=== PATIENT | male | born 1945 | race Caucasian/White ===

== ENCOUNTER 2017-11-08 21:58 | Inpatient (IN) ==
--- NOTE | 2017-11-08 22:31 | DR.N/VMALE ---
HPI - Time Seen Time seen: 22:27 - Complaints Chief Complaint Doctors Comments: Son states he had not heard from his father in a while and he and his went to check on him and found him on the floor with yellow bile vomitus that he had thrown up. States the patient stays with his grand daughter and her and she said he fell yesterday and he told her to brink him to the emergency room if he did not get any better. Patient states he fell at home when his feet got tingled up and he fell. He denies chest pain or SOB. States he is unsure of the name of his doctor. Son state he is a diabetic and has heart problems. He denies tobacco or alcohol usage. Chief Complaint:: nausea/vomiting, decreased responsiveness - Reviewed Nurses Notes Reviewed: Yes - Source History Provided: Patient - Mode of Arrival Mode of Arrival: EMS - Timing Onset of Chief Complaint: 11/08/17 - Context Onset: Spontaneous Recent: None Possible Ingestion: Unknown History of: None - Quality Quality: Bilious - Associated Signs and Symptoms Abdominal Pain Location: denies: Diffuse, Epigastric, RUQ, LUQ, RLQ, LLQ, Suprapubic Symptoms: denies: Abdominal Pain, Diarrhea, Anorexia, Hematemesis, Melena, Hematochezia, Fever PMH - PMH Past Medical History: Yes Past Medical History: Arthritis, Diabetes, Dyslipidemia, Hypertension Past Surgical History: Yes Surgical History: Angioplasty/Stents - Family History History of Family Medical Conditions: Yes Family Medical History: Diabetes Mellitus, Cancer, Coronary Artery Disease - Social History Do you use any recreational Drugs:: No - infectious screening In the last 2 months have you had wt loss of >10#?: NO Have you had fever, night sweats or hemotysis?: No Have you traveled outside the country in the last 6 months?: No Isolation: Standard ROS - Review of Systems Constitutional: No Symptoms Reported, Weakness Eyes: No Symptoms Reported ENTM: No Symptoms Reported Respiratoy: No Symptoms Reported. negative: See HPI, Productive Cough, Non- Productive Cough, Moist Cough, Dry Cough, Hacking Cough, Barking Cough, Brassy Cough, Orthopnea, Short of Breath, Stridor, Wheezing, Hemoptysis, Other Cardiovascular: No Symptoms Reported Gastrointestinal/Abdominal: No Symptoms Reported, Nausea, Vomiting Genitourinary: No Symptoms Reported Neurological: No Symptoms Reported, Weakness, Problems Walking Musculoskeletal: No Symptoms Reported Integumentary: No Symptoms Reported. negative: See HPI, Change in Color, Change in Hair/Nails, Dryness, Lesions, Lumps, Rash, Itching, Wound, Bruises, Juandice, Other Hematologic/Lymphatic: No Symptoms Reported. negative: See HPI, Anemia, Blood Clots, Easy Bleeding, Easy Bruising, Swollen Glands, Lymphadenopathy, Other Endocrine: No Symptoms Reported, Decreased Appetite Psychiatric: No Symptoms Reported PE - General Limitations: Altered Mental Status General Appearance: Alert, In Distress (moderate), Obese - Head Head Exam: Normal Inspection, Atraumatic, Normocephalic - Eyes Eye exam: Normal Appearance, PERRL, EOMI. negative: Scleral Icterus, Conjunctival Injection, Nystagmus, Miosis, Mydrasis, Periorbital Swelling, Periorbital Tenderness, Other - ENT ENT Exam: Normal Exam, Normal Oropharynx, Normal External Ear Exam, Mucous Membranes Moist, TM's Normal Bilaterally - Neck Neck Exam: Normal Inspection, Full ROM, Trachea Midline - Chest Chest Inspection: Normal Inspection, Symmetric Chest Wall Rise - Respiratory Respiratory Exam: Normal Lung Sounds Bilat Respiratory Exam: Bilateral Clear to Auscultation - Cardiovascular Cardiovascular Exam: Regular Rate, Normal Rhythm, Normal Heart Sounds - Abdominal Exam Abdominal Exam: Normal Inspection, Normal Bowel Sounds, Soft Abdominal Tenderness: negative: RUQ, RLQ, LUQ, LLQ, Epigastrium, Suprapubic, Diffuse, Mild, Moderate, Severe, Other - Rectal Rectal Exam: Deferred - Exam: Male: Normal Inspection, Phimosis. negative: Testicular Tenderness, Urethral Discharge, Scrotal Swelling, Penile Swelling - Extremities Extremities Exam: Normal Inspection, Full ROM, Normal Capillary Refill. negative: Tenderness, Edema, Joint Swelling, Calf Tenderness, Other - Back Back Exam: Normal Inspection, Full ROM - Neurologic Neurological Exam: Alert, Oriented X3, CN II-XII Intact (decreased hearing; repeats every question before answering it.), Reflexes Normal. negative: Normal Gait (gait not tested) - Psychiatric Psychiatric Exam: Normal Affect, Normal Mood - Skin Skin Exam: Warm, Dry, Intact, Rash (arms with hyperpigmented rash) - Vital Signs Vitals: Temperature 100.5 F Pulse Rate [Right] 110 Respiratory Rate 32 Blood Pressure [Left Arm] 118/64 Blood Pressure [Right Arm] 150/72 Blood Pressure 128/84 O2 Sat by Pulse Oximetry 95 Course - Consultation Called: :33 Call Returned: 01:33 (Dr. Mack to admit) - Education/Counseling Education/Counseling: Patient, Family Educated On: Treatment, Diagnosis, Needs for Follow Up ROR - Labs Reviewed Laboratory Results Reviewed?: Yes (All labs and x-ray results reviewed and discussed with patient) Result Diagrams: 11/08/17 23:00 11/08/17 23:00 - XRAY XRAY Interpreted by: Radiologist (CT head: No acute intracranial abnormality.) XRAY Findings: CXR: Cardiomegaly without overt edema. - EKG Rate: 109 [place]: Normal Rhythm: NSR, ST Block: None, RBBB Hypertrophy: None ST: Old, Inf, Infarct - Labs Reviewed Laboratory: WBC 14.8 X10^3/uL (3.6-10.0) H 11/08/17 23:00 RBC 4.90 X10^6/uL (4.7-6.0) 11/08/17 23:00 Hgb 14.5 g/dL (13.5-18.0) 11/08/17 23:00 Hct 41.7 % (42.0-54.0) L 11/08/17 23:00 MCV 85.0 fL (80.0-100.0) 11/08/17 23:00 MCH 29.6 pg (27.0-34.0) 11/08/17 23:00 MCHC 34.9 g/dL (33.0-35.0) 11/08/17 23:00 RDW 15.1 % (11.6-16.5) 11/08/17 23:00 Plt Count 160 X10^3/uL (150.0-450.0) 11/08/17 23:00 MPV 7.0 fL (7.4-11.0) L 11/08/17 23:00 Neut % (Auto) 82.6 % (42.0-75.0) H 11/08/17 23:00 Lymph % (Auto) 8.0 % (21.0-51.0) L 11/08/17 23:00 [place] % (Auto) 8.9 % (0.0-13.0) 11/08/17 23:00 Eos % (Auto) 0.1 % (0.9-2.9) L 11/08/17 23:00 Baso % (Auto) 0.4 % (0.2-1.0) 11/08/17 23:00 Neut # (Auto) 12.2 x10^3/uL (2.2-4.8) H 11/08/17 23:00 Lymph # (Auto) 1.2 X10^3/uL (1.3-2.9) L 11/08/17 23:00 [place] # (Auto) 1.3 x10^3/uL (0.3-0.8) H 11/08/17 23:00 Eos # (Auto) 0.0 x10^3/uL (0.0-0.2) 11/08/17 23:00 Baso # (Auto) 0.1 X10^3/uL (0.0-0.1) 11/08/17 23:00 Absolute Nucleated RBC 0.1 /100WBC 11/08/17 23:00 INR Target Range - 11/08/17 23:00 INR 1.11 (0.8-1.3) 11/08/17 23:00 APTT 34.1 SECONDS (22.9-36.5) 11/08/17 23:00 PTT Comment - 11/08/17 23:00 Sodium 136 mmol/L (136-145) 11/08/17 23:00 Corrected Sodium 139 mmol/L (136-145) 11/08/17 23:00 Potassium 3.2 mmol/L (3.5-5.1) L 11/08/17 23:00 Chloride 98 mmol/L (98-107) 11/08/17 23:00 Carbon Dioxide 29.7 mmol/L (21-32) 11/08/17 23:00 BUN 14 mg/dL (7-18) 11/08/17 23:00 Creatinine 1.18 mg/dL (0.70-1.30) 11/08/17 23:00 Est GFR (MDRD) Af Amer > 60 (>60) 11/08/17 23:00 Est GFR (MDRD) Non-Af > 60 (>60) 11/08/17 23:00 Glucose 213 mg/dL (65-99) H 11/08/17 23:00 Calcium 9.1 mg/dL (8.5-10.1) 11/08/17 23:00 Corrected Calcium 9.7 mg/dL (8.5-10.1) 11/08/17 23:00 Magnesium 1.4 mg/dL (1.7-2.9) L 11/08/17 23:00 Total Bilirubin 1.30 mg/dL (0.2-1.0) H 11/08/17 23:00 AST 33 Units/L (15-37) 11/08/17 23:00 ALT 32 Units/L (12-78) 11/08/17 23:00 Alkaline Phosphatase 57 Units/L (46-116) 11/08/17 23:00 Creatine Kinase 1228 Units/L (39-308) H 11/08/17 23:00 CK-MB (CK-2) 2.0 ng/mL (0-4.0) 11/08/17 23:00 CK/CKMB % Calc 0.2 % (<4) 11/08/17 23: Troponin I < 0.02 ng/mL (0-1.5) 11/08/17 23:00 Total Protein 7.3 g/dL (6.4-8.2) 11/08/17 23:00 Albumin 3.3 g/dL (3.4-5.0) L 11/08/17 23:00 Globulin 4.0 g/dL (2.5-4.5) 11/08/17 23:00 Albumin/Globulin Ratio 0.8 Ratio (1.1-2.1) L 11/08/17 23:00 Amylase 37 Units/L (25-115) 11/08/17 23:00 Lipase 70 Units/L (73-393) L 11/08/17 23:00 Specimen Type Random urine 11/08/17 23:23 Urine Color Bloody (YELLOW) 11/08/17 23: Urine Appearance Cloudy (CLEAR) 11/08/17 23:23 Urine pH 6.5 (5.0 - 8.0) 11/08/17 23:23 Ur Specific [place] 1.015 (1.000-1.030) 11/08/17 23:23 Urine Protein 4+ (NEGATIVE) 11/08/17 23:23 Urine Glucose (UA) 3+ (NEGATIVE) 11/08/17 23:23 Urine Ketones 4+ (NEGATIVE) 11/08/17 23:23 Urine Occult Blood 5+ (NEGATIVE) 11/08/17 23:23 Urine Nitrite Positive (NEGATIVE) 11/08/17 23:23 Urine Bilirubin 1+ (NEGATIVE) 11/08/17 23:23 Urine Urobilinogen 1+ (NORMAL) 11/08/17 23:23 Ur Leukocyte Esterase 2+ (NEGATIVE) 11/08/17 23:23 Urine RBC Tntc /HPF (NONE SEEN) 11/08/17 23:23 Urine WBC 3-5 /HPF (NONE SEEN) 11/08/17 23:23 Ur Squamous Epith Cells Few /HPF (NEGATIVE) 11/08/17 23:23 Urine Bacteria Trace /HPF (NEGATIVE) 11/08/17 23:23 Ur Culture Indicated? No/not indicated 11/08/17 23:23 Urine Opiates Screen Negative (NEG=<300) 11/08/17 23:25 Urine Methadone Screen Negative (NEG=<300) 11/08/17 23:25 Ur Barbiturates Screen Negative (NEG=<200) 11/08/17 23:25 Ur Phencyclidine Scrn Negative (NEG=<25) 11/08/17 23:25 Ur Amphetamines Screen Negative (NEG=<1000) 11/08/17 23:25 U Benzodiazepines Scrn Negative (NEG=<200) 11/08/17 23:25 Urine Cocaine Screen Negative (NEG=<300) 11/08/17 23:25 U Marijuana (THC) Screen Negative (NEG=<50) 11/08/17 23:25 - Diagnosis Discharge Problem: SIRS (systemic inflammatory response syndrome), Fall Urinary tract infection Qualifiers: Hematuria presence: without hematuria Rhabdomyolysis Qualifiers: Encounter type: initial encounter Diabetes mellitus Qualifiers: Diabetes mellitus type: type 2 - Discharge Plan Disposition: 01 HOME, SELF-CARE Condition: Stable - Follow ups/Referrals Follow ups/Referrals: DORITA ANDUJAR [Primary Care Provider] - 3 days - Instructions
[2017-11-08 23:15] LABS: BASOPHILS # (AUTO) 0.1 X10^3/uL (0.0-0.1); BASOPHILS % (AUTO) 0.4 % (0.2-1.0); EOSINOPHILS % (AUTO) 0.1 % (0.9-2.9); HEMATOCRIT 41.7 % (42.0-54.0); HEMOGLOBIN 14.5 g/dL (13.5-18.0); LYMPHOCYTES # (AUTO) 1.2 X10^3/uL (1.3-2.9); MEAN CORPUSCULAR HEMOGLOBIN 29.6 pg (27.0-34.0); MEAN CORPUSCULAR HGB CONC 34.9 g/dL (33.0-35.0); MONOCYTES # (AUTO) 1.3 x10^3/uL (0.3-0.8); MONOCYTES % (AUTO) 8.9 % (0.0-13.0); NEUTROPHILS # (AUTO) 12.2 x10^3/uL (2.2-4.8); NEUTROPHILS % (AUTO) 82.6 % (42.0-75.0); PLATELET COUNT 160 X10^3/uL (150.0-450.0); RED CELL DISTRIBUTION WIDTH 15.1 % (11.6-16.5); WHITE BLOOD COUNT 14.8 X10^3/uL (3.6-10.0)
[2017-11-08 23:23] LABS: AMYLASE 37 Units/L (25-115); LIPASE 70 Units/L (73-393)
[2017-11-08] MEDS: NS 1000 ML 1,000 ML IV SCH ×2 (23:25→23:28)
[2017-11-08 23:35] LABS: BLOOD UREA NITROGEN 14 mg/dL (7-18); CALCIUM 9.1 mg/dL (8.5-10.1); CARBON DIOXIDE 29.7 mmol/L (21-32); CHLORIDE 98 mmol/L (98-107); COR NA(FOR HYPERGLY) 139 mmol/L (136-145); CREATININE 1.18 mg/dL (0.70-1.30); SODIUM 136 mmol/L (136-145); TROPONIN I < 0.02 ng/mL (0-1.5); eGFR NON BLACK RACES > 60 (>60)
[2017-11-08 23:40] LABS: ALANINE AMINOTRANSFERASE 32 Units/L (12-78); ALBUMIN 3.3 g/dL (3.4-5.0); ALKALINE PHOSPHATASE 57 Units/L (46-116); ASPARTATE AMINO TRANSFERASE 33 Units/L (15-37); COR CA(FOR HYPOALB) 9.7 mg/dL (8.5-10.1); MAGNESIUM 1.4 mg/dL (1.7-2.9); TOTAL PROTEIN 7.3 g/dL (6.4-8.2)
[2017-11-08 23:50] LABS: CKMB % 0.2 % (<4); CREATINE KINASE 1228 Units/L (39-308)
[2017-11-08] MEDS ORDERED: ZOFRAN INJ 4 MG VIAL ONE (23:54)
[2017-11-08] MEDS ORDERED: ZOFRAN INJ 4 MG VIAL IVP ONE (23:54)
[2017-11-08 23:56] LABS: BILIRUBIN,URINE 1+ (NEGATIVE); BLOOD/HEMOGLOBIN,URINE 5+ (NEGATIVE); GLUCOSE, URINE 3+ (NEGATIVE); KETONES,URINE 4+ (NEGATIVE); LEUKOCYTE ESTERASE ,URINE 2+ (NEGATIVE); NITRITES,URINE POSITIVE (NEGATIVE); PH,URINE 6.5 (5.0 - 8.0); PROTEIN,URINE 4+ (NEGATIVE); UROBILINOGEN,URINE 1+ (NORMAL)
--- NOTE | 2017-11-09 00:07 | CT ---
CT head without contrast Indication: Fall Comparison: None Technique: CT images of the head were obtained without contrast. Automatic exposure control was utili [employer]. Findings: There is moderate generalized brain atrophy with concomitant ventricular and sulcal enlarge ment. There is no evidence for acute bleed, mass effect, or abnormal extra-axial collection. No acute calvarial fracture is identified. The visualized paranasal sinuses and mastoid air cells are grossly clear. Impression: No acute intracranial abnormality. Reported By:
[2017-11-09 00:15] LABS: APPEARANCE,URINE CLOUDY (CLEAR); COLOR,URINE BLOODY (YELLOW)
[2017-11-09 00:16] LABS: BACTERIA,URINE TRACE /HPF (NEGATIVE); RBC,URINE TNTC /HPF (NONE SEEN); SQUAMOUS EPITHELIAL CELL,UR FEW /HPF (NEGATIVE)
[2017-11-09] MEDS ORDERED: LEVAQUIN PREMIX IV 500 MG 500 MG/100 ML BAG IV ONE ×2 (00:52→01:02)
--- NOTE | 2017-11-09 01:16 | RAD ---
Chest, AP Indication: Chest pain Comparison: 06/01/2014 Findings: Cardiac silhouette enlargement is similar prior. Previous median sternotomy and CABG noted. There is hazy retrocardiac opacity. The left upper lung and right lung are grossly clear. Impression: Cardiomegaly without overt edema. Hazy retrocardiac opacity opacity, which could reflect atelectasis, infiltrate, and/or small effusion . No overt edema. Reported By:
[2017-11-09] MEDS ORDERED: PHENERGAN TAB 25 MG PO PRN (01:40)
[2017-11-09] MEDS ORDERED: MORPHINE SULFATE INJ 2 MG INJ IVP PRN (01:40)
[2017-11-09] MEDS ORDERED: PEPCID 20 MG IV PREMIX* 20 MG/50 ML BAG IV ONE ×2 (01:43→04:44)
[2017-11-09] MEDS ORDERED: LEVAQUIN PREMIX IV 500 MG 500 MG/100 ML BAG IV SCH (02:00)
[2017-11-09] MEDS ORDERED: K-LYTE EFFERVESCENT PO PRN (03:23)
[2017-11-09] MEDS ORDERED: POTASSIUM CHL 40 MEQ/NS 0.45% 500 ML IV PRN (03:23)
[2017-11-09] MEDS ORDERED: POTASSIUM CHLORIDE LIQ 20 MEQ UDC PO PRN (03:23)
[2017-11-09] MEDS ORDERED: POTASSIUM CHL 60 MEQ/NS 0.45% 500 ML IV PRN (03:23)
--- NOTE | 2017-11-09 04:15 | RAD ---
Abdomen single view Indication nasogastric tube placement Findings: Comparison June 01, 2014 Exam is limited due to patient body habitus and suboptimal exposure. The study is negative for visual ization of nasogastric tube. There is a nonobstructive gas pattern. Impression: 1. Nasogastric tube not visualized on the field. Correlate with a proximal esophageal pos itioning. 2. Nonobstructive gas pattern noted. Reported By:
[2017-11-09] MEDS: NS 1000 ML 1,000 ML IV SCH ×3 (04:21→18:43)
[2017-11-09] MEDS: MAGNESIUM SULFATE 1 GRAM/100 mL PREMIX 1 GM/100 ML BAG IV PRN ×2 (04:47→07:13)
[2017-11-09] MEDS: K-RIDER 10 MEQ/NS 100 ML 10 MEQ/100 ML BAG IV PRN ×4 (04:48→23:20)
[2017-11-09 06:01] VITALS: BMI 29.5
[2017-11-09 06:12] LABS: BASOPHILS % (AUTO) 0.3 % (0.2-1.0); HEMATOCRIT 38.7 % (42.0-54.0); HEMOGLOBIN 13.4 g/dL (13.5-18.0); LYMPHOCYTES # (AUTO) 1.1 X10^3/uL (1.3-2.9); LYMPHOCYTES % (AUTO) 7.8 % (21.0-51.0); MEAN CORPUSCULAR HEMOGLOBIN 29.6 pg (27.0-34.0); MEAN CORPUSCULAR HGB CONC 34.7 g/dL (33.0-35.0); MEAN CORPUSCULAR VOLUME 85.2 fL (80.0-100.0); MEAN PLATELET VOLUME 7.3 fL (7.4-11.0); MONOCYTES # (AUTO) 1.3 x10^3/uL (0.3-0.8); MONOCYTES % (AUTO) 9.5 % (0.0-13.0); NEUTROPHILS # (AUTO) 11.6 x10^3/uL (2.2-4.8); NEUTROPHILS % (AUTO) 82.4 % (42.0-75.0); PLATELET COUNT 144 X10^3/uL (150.0-450.0); RED BLOOD COUNT 4.54 X10^6/uL (4.7-6.0); RED CELL DISTRIBUTION WIDTH 15.1 % (11.6-16.5); WHITE BLOOD COUNT 14.1 X10^3/uL (3.6-10.0)
[2017-11-09] MEDS: HumuLIN R SC PRN ×5 (06:19→21:59)
--- NOTE | 2017-11-09 06:25 | RAD ---
Abdomen single view Indication: Nasogastric tube placement Comparison November 09, 2017 Findings: There is a nasogastric tube seen in the distal body of the stomach. The gas pattern is nega tive for obstruction of bowel. There is bibasilar atelectasis and/or infiltrate seen in the lung base s left greater than right. Impression: 1. Nasogastric tube in the distal body of the stomach. 2. Nonobstructive gas pattern. 3. Basilar atelectasis and/or infiltrates of the thorax. Reported By:
[2017-11-09 06:29] LABS: ALANINE AMINOTRANSFERASE 30 Units/L (12-78); ALKALINE PHOSPHATASE 53 Units/L (46-116); ASPARTATE AMINO TRANSFERASE 38 Units/L (15-37); BLOOD UREA NITROGEN 16 mg/dL (7-18); CALCIUM 8.6 mg/dL (8.5-10.1); CARBON DIOXIDE 30.2 mmol/L (21-32); CHLORIDE 97 mmol/L (98-107); COR CA(FOR HYPOALB) 9.4 mg/dL (8.5-10.1); COR NA(FOR HYPERGLY) 141 mmol/L (136-145); CREATININE 1.21 mg/dL (0.70-1.30); SODIUM 137 mmol/L (136-145); TOTAL PROTEIN 6.8 g/dL (6.4-8.2); eGFR NON BLACK RACES > 60 (>60)
[2017-11-09 06:45] LABS: CHOL/HDL RATIO 1.9 (0.0-5.0)
[2017-11-09] MEDS: DUONEB 0.5 MG/3 MG NEB SCH ×4 (09:25→20:10)
[2017-11-09 09:34] LABS: CREATINE KINASE MB 2.2 ng/mL (0-4.0); TROPONIN I < 0.02 ng/mL (0-1.5)
[2017-11-09 09:36] LABS: CKMB % 0.1 % (<4); CREATINE KINASE 2165 Units/L (39-308)
[2017-11-10] MEDS: NS 1000 ML 1,000 ML IV SCH ×4 (02:25→17:39)
[2017-11-10] MEDS: HumuLIN R SC PRN ×4 (06:03→20:35)
[2017-11-10 06:24] LABS: BASOPHILS % (AUTO) 0.3 % (0.2-1.0); EOSINOPHILS % (AUTO) 0.2 % (0.9-2.9); HEMATOCRIT 38.6 % (42.0-54.0); HEMOGLOBIN 13.3 g/dL (13.5-18.0); LYMPHOCYTES # (AUTO) 1.1 X10^3/uL (1.3-2.9); LYMPHOCYTES % (AUTO) 7.4 % (21.0-51.0); MEAN CORPUSCULAR HEMOGLOBIN 29.6 pg (27.0-34.0); MEAN CORPUSCULAR HGB CONC 34.4 g/dL (33.0-35.0); MEAN CORPUSCULAR VOLUME 85.9 fL (80.0-100.0); MEAN PLATELET VOLUME 7.1 fL (7.4-11.0); MONOCYTES # (AUTO) 1.1 x10^3/uL (0.3-0.8); MONOCYTES % (AUTO) 7.6 % (0.0-13.0); NEUTROPHILS # (AUTO) 12.7 x10^3/uL (2.2-4.8); NEUTROPHILS % (AUTO) 84.5 % (42.0-75.0); PLATELET COUNT 153 X10^3/uL (150.0-450.0); RED CELL DISTRIBUTION WIDTH 15.2 % (11.6-16.5)
--- NOTE | 2017-11-10 06:41 | RAD ---
Chest one view Indication: Shortness of breath Comparison November 08, 2017 Findings: There are post sternotomy changes. Cardiac enlargement is again noted. The lung volumes rem ain significantly decreased limiting detail. A nasogastric tube enters the stomach and continues p.m. the flow margin. Central venous structures demonstrate crowding due to decreased inspiration. Impression: 1. Stable chest demonstrating decreased lung volumes and crowding of markings versus mild congestive failure. 2. Visualized nasogastric tube entering the stomach. Reported By:
[2017-11-10 06:48] LABS: ALANINE AMINOTRANSFERASE 25 Units/L (12-78); ALBUMIN 2.5 g/dL (3.4-5.0); ALKALINE PHOSPHATASE 67 Units/L (46-116); ASPARTATE AMINO TRANSFERASE 45 Units/L (15-37); BLOOD UREA NITROGEN 16 mg/dL (7-18); CALCIUM 8.2 mg/dL (8.5-10.1); CARBON DIOXIDE 25.9 mmol/L (21-32); CHLORIDE 101 mmol/L (98-107); COR CA(FOR HYPOALB) 9.4 mg/dL (8.5-10.1); COR NA(FOR HYPERGLY) 140 mmol/L (136-145); CREATINE KINASE MB 1.6 ng/mL (0-4.0); CREATININE 1.13 mg/dL (0.70-1.30); MAGNESIUM 2.3 mg/dL (1.7-2.9); SODIUM 136 mmol/L (136-145); TOTAL PROTEIN 6.7 g/dL (6.4-8.2); TROPONIN I < 0.02 ng/mL (0-1.5); eGFR NON BLACK RACES > 60 (>60)
[2017-11-10 06:50] LABS: CKMB % 0.1 % (<4)
[2017-11-10 06:51] LABS: CREATINE KINASE 2684 Units/L (39-308)
[2017-11-10] MEDS: LEVAQUIN PREMIX IV 500 MG 500 MG/100 ML BAG IV SCH (08:20)
[2017-11-10] MEDS: K-RIDER 10 MEQ/NS 100 ML 10 MEQ/100 ML BAG IV PRN ×2 (09:24→13:58)
[2017-11-10] MEDS ORDERED: [UNRECOGNIZED DRUG - OTHER] PO SCH (09:45)
[2017-11-10] MEDS ORDERED: CHOLECALCIFEROL PO SCH (09:45)
[2017-11-10] MEDS: DUONEB 0.5 MG/3 MG NEB SCH ×3 (09:46→20:59)
[2017-11-10] MEDS ORDERED: GLUCOPHAGE ONE ×2 (10:00→20:15)
[2017-11-10] MEDS ORDERED: NS 250 ML IV 0 ML IV ONE (10:04)
[2017-11-10] MEDS ORDERED: VIBRAMYCIN IV ONE (10:05)
[2017-11-10] MEDS ORDERED: D5W 250 ML IV 250 ML IV ONE (10:19)
[2017-11-10] MEDS: GLUCOPHAGE PO SCH ×2 (10:36→20:33)
[2017-11-10] MEDS: ZESTRIL TAB 10 MG PO SCH (10:37)
[2017-11-10] MEDS: ECOTRIN TAB 325 MG PO SCH (10:37)
[2017-11-10] MEDS: ZANTAC PO SCH ×2 (10:37→20:35)
[2017-11-10] MEDS: LASIX PO SCH (10:37)
[2017-11-10] MEDS: LOPRESSOR TAB 25 MG PO SCH ×2 (10:37→20:34)
[2017-11-10] MEDS: VITAMIN D3 PO SCH ×2 (10:37→20:35)
[2017-11-10] MEDS: VIBRAMYCIN 100 MG in D5W 250 ML IV 250 ML IV SCH ×2 (11:17→20:34)
[2017-11-10] MEDS ORDERED: MIRALAX POWDER (1 DOSE 17 G) ONE (20:27)
[2017-11-10] MEDS: CRESTOR TAB 10 MG PO SCH (20:33)
[2017-11-10] MEDS: COLACE CAP 100 MG PO SCH (20:33)
[2017-11-10] MEDS: MIRALAX POWDER (255 GRAMS BTL) PO SCH (20:34)
[2017-11-10] MEDS: LANTUS SC SCH (20:34)
[2017-11-11] MEDS: NS 1000 ML 1,000 ML IV SCH ×3 (04:11→18:27)
[2017-11-11] MEDS: HumuLIN R SC PRN ×3 (05:33→15:55)
[2017-11-11 06:08] LABS: BASOPHILS % (AUTO) 0.3 % (0.2-1.0); EOSINOPHILS # (AUTO) 0.2 x10^3/uL (0.0-0.2); EOSINOPHILS % (AUTO) 1.6 % (0.9-2.9); HEMATOCRIT 37.3 % (42.0-54.0); LYMPHOCYTES # (AUTO) 1.1 X10^3/uL (1.3-2.9); MEAN CORPUSCULAR HEMOGLOBIN 29.6 pg (27.0-34.0); MEAN CORPUSCULAR HGB CONC 34.9 g/dL (33.0-35.0); MEAN CORPUSCULAR VOLUME 84.9 fL (80.0-100.0); MEAN PLATELET VOLUME 7.4 fL (7.4-11.0); MONOCYTES # (AUTO) 0.8 x10^3/uL (0.3-0.8); NEUTROPHILS # (AUTO) 11.1 x10^3/uL (2.2-4.8); NEUTROPHILS % (AUTO) 84.1 % (42.0-75.0); PLATELET COUNT 172 X10^3/uL (150.0-450.0); RED CELL DISTRIBUTION WIDTH 14.7 % (11.6-16.5); WHITE BLOOD COUNT 13.2 X10^3/uL (3.6-10.0)
[2017-11-11 06:22] LABS: BLOOD UREA NITROGEN 17 mg/dL (7-18); CARBON DIOXIDE 26.4 mmol/L (21-32); CHLORIDE 100 mmol/L (98-107); COR NA(FOR HYPERGLY) 137 mmol/L (136-145); CREATININE 1.05 mg/dL (0.70-1.30); SODIUM 134 mmol/L (136-145); eGFR NON BLACK RACES > 60 (>60)
--- NOTE | 2017-11-11 07:58 | RAD ---
History: Shortness of breath Study: Portable AP chest Comparison: Yesterday Findings: There is unchanged moderate cardiomegaly status post old sternotomy for coronary artery byp ass grafting surgery. There is limited inspiration. The costophrenic angles are blunted. There is mil d vascular congestion. Impression: Cardiomegaly and vascular congestion and pleural effusions suggesting congestive heart fa ilure as before Reported By:
[2017-11-11] MEDS: LEVAQUIN PREMIX IV 500 MG 500 MG/100 ML BAG IV SCH (08:21)
[2017-11-11] MEDS ORDERED: GLUCOPHAGE ONE ×2 (08:35→20:34)
[2017-11-11] MEDS: ECOTRIN TAB 325 MG PO SCH (08:51)
[2017-11-11] MEDS: LOPRESSOR TAB 25 MG PO SCH ×2 (08:51→21:47)
[2017-11-11] MEDS: ZESTRIL TAB 10 MG PO SCH (08:51)
[2017-11-11] MEDS: ZANTAC PO SCH ×2 (08:51→21:47)
[2017-11-11] MEDS: GLUCOPHAGE PO SCH ×2 (08:51→21:47)
[2017-11-11] MEDS: LASIX PO SCH ×2 (08:52→09:59)
[2017-11-11] MEDS ORDERED: ZESTRIL TAB 10 MG PO SCH (09:00)
[2017-11-11] MEDS ORDERED: LASIX PO SCH (09:00)
[2017-11-11] MEDS: DUONEB 0.5 MG/3 MG NEB SCH ×4 (09:15→21:55)
[2017-11-11] MEDS: VIBRAMYCIN 100 MG in D5W 250 ML IV 250 ML IV SCH ×2 (09:55→21:48)
[2017-11-11] MEDS: VITAMIN D3 PO SCH ×2 (09:59→21:48)
[2017-11-11] MEDS: CRESTOR TAB 10 MG PO SCH (21:47)
[2017-11-11] MEDS: LANTUS SC SCH (21:48)
[2017-11-11] MEDS: COLACE CAP 100 MG PO SCH (21:49)
[2017-11-11] MEDS: MIRALAX POWDER (255 GRAMS BTL) PO SCH (21:49)
[2017-11-12] MEDS: NS 1000 ML 1,000 ML IV SCH ×2 (05:44→11:36)
[2017-11-12 05:53] LABS: BASOPHILS # (AUTO) 0.1 X10^3/uL (0.0-0.1); BASOPHILS % (AUTO) 0.5 % (0.2-1.0); EOSINOPHILS # (AUTO) 0.2 x10^3/uL (0.0-0.2); EOSINOPHILS % (AUTO) 2.2 % (0.9-2.9); HEMATOCRIT 40.1 % (42.0-54.0); LYMPHOCYTES # (AUTO) 1.2 X10^3/uL (1.3-2.9); LYMPHOCYTES % (AUTO) 11.1 % (21.0-51.0); MEAN CORPUSCULAR HEMOGLOBIN 29.9 pg (27.0-34.0); MEAN CORPUSCULAR VOLUME 85.4 fL (80.0-100.0); MEAN PLATELET VOLUME 7.4 fL (7.4-11.0); MONOCYTES # (AUTO) 0.9 x10^3/uL (0.3-0.8); MONOCYTES % (AUTO) 8.7 % (0.0-13.0); NEUTROPHILS # (AUTO) 8.4 x10^3/uL (2.2-4.8); NEUTROPHILS % (AUTO) 77.5 % (42.0-75.0); PLATELET COUNT 189 X10^3/uL (150.0-450.0); RED BLOOD COUNT 4.69 X10^6/uL (4.7-6.0); RED CELL DISTRIBUTION WIDTH 15.5 % (11.6-16.5); WHITE BLOOD COUNT 10.8 X10^3/uL (3.6-10.0)
[2017-11-12] MEDS: HumuLIN R SC PRN ×2 (06:07→12:24)
--- NOTE | 2017-11-12 06:19 | RAD ---
HISTORY: Shortness of breath Study: Chest AP portable Comparison: 11/11/2017 Findings: The patient is status post median sternotomy. The heart remains enlarged. No definite congestive hear t failure is noted. The lungs are hypo inflated but free of acute infiltrates. No pleural effusions a re identified. The bony thorax is unremarkable. IMPRESSION: Cardiomegaly without congestive heart failure Lungs hypo inflated but clear Reported By:
[2017-11-12 06:33] LABS: ALANINE AMINOTRANSFERASE 34 Units/L (12-78); ALBUMIN 2.4 g/dL (3.4-5.0); ALKALINE PHOSPHATASE 66 Units/L (46-116); ASPARTATE AMINO TRANSFERASE 63 Units/L (15-37); BLOOD UREA NITROGEN 19 mg/dL (7-18); CALCIUM 8.6 mg/dL (8.5-10.1); CARBON DIOXIDE 26.8 mmol/L (21-32); CHLORIDE 100 mmol/L (98-107); COR CA(FOR HYPOALB) 9.9 mg/dL (8.5-10.1); COR NA(FOR HYPERGLY) 136 mmol/L (136-145); CREATININE 0.96 mg/dL (0.70-1.30); SODIUM 133 mmol/L (136-145); TOTAL PROTEIN 6.7 g/dL (6.4-8.2); eGFR NON BLACK RACES > 60 (>60)
[2017-11-12 06:44] LABS: CREATINE KINASE 2421 Units/L (39-308)
[2017-11-12] MEDS ORDERED: GLUCOPHAGE ONE (08:36)
[2017-11-12] MEDS: ECOTRIN TAB 325 MG PO SCH (08:55)
[2017-11-12] MEDS: LEVAQUIN PREMIX IV 500 MG 500 MG/100 ML BAG IV SCH (08:56)
[2017-11-12] MEDS: LOPRESSOR TAB 25 MG PO SCH (08:56)
[2017-11-12] MEDS: GLUCOPHAGE PO SCH (08:56)
[2017-11-12] MEDS: LASIX PO SCH (08:56)
[2017-11-12] MEDS: VITAMIN D3 PO SCH (08:56)
[2017-11-12] MEDS: ZANTAC PO SCH (08:57)
[2017-11-12] MEDS: VIBRAMYCIN 100 MG in D5W 250 ML IV 250 ML IV SCH (08:57)
[2017-11-12] MEDS: ZESTRIL TAB 10 MG PO SCH (08:57)
[2017-11-12] MEDS: DUONEB 0.5 MG/3 MG NEB SCH (09:30)
[2017-11-12 16:12] VITALS: BP 128/70
== END 2017-11-12 17:45 | disposition home health service (06) | DRG 690 ==
LOC: ER 21:58 → ICU 11-09 01:55
PROVIDERS: ADMIT Internal Medicine; ATTEND Obstetrics & Gynecology Obstetrics
DX: M62.82 Rhabdomyolysis; I10 Essential (primary) hypertension; W19.XXXA Unspecified fall, initial encounter; E11.9 Type 2 diabetes mellitus without complications; R41.82 Altered mental status, unspecified; Z79.82 Long term (current) use of aspirin; I25.10 Atherosclerotic heart disease of native coronary artery without angina pectoris; R26.9 Unspecified abnormalities of gait and mobility; I50.9 Heart failure, unspecified; N39.0 Urinary tract infection, site not specified; E87.6 Hypokalemia; Y92.009 Unspecified place in unspecified non-institutional (private) residence as the place of occurrence of the external cause
CPT/HCPCS: 36415; 70450; 71010; 71045; 74000; 74018; 80048; 80053; 80061; 80307; 81001; 82150; 82550; 82553; 83690; 83735; 84132; 84484; 85025; 85610; 85730; 87086; 93005; 93010; 94640; 96365; 96367; 96374; 96375; 97163; 97167; 97535; 99284; 99285; A4216; A4222; S0028; G0434; J1815; J1956; J2405; J3475; J3480; J3490; J7030; J7050; J7060; J7620

== ENCOUNTER 2017-11-18 20:00 | Observation (INO) ==
[2017-11-18] MEDS ORDERED: NS 1000 ML 1,000 ML ONE (20:13)
[2017-11-18] MEDS ORDERED: D5W 1000 ML IV 1,000 ML IV ONE (20:19)
[2017-11-18 20:20] LABS: BASOPHILS % (AUTO) 0.3 % (0.2-1.0); EOSINOPHILS # (AUTO) 0.1 x10^3/uL (0.0-0.2); EOSINOPHILS % (AUTO) 0.8 % (0.9-2.9); HEMATOCRIT 42.8 % (42.0-54.0); HEMOGLOBIN 14.8 g/dL (13.5-18.0); LYMPHOCYTES # (AUTO) 1.4 X10^3/uL (1.3-2.9); MEAN CORPUSCULAR HEMOGLOBIN 29.5 pg (27.0-34.0); MEAN CORPUSCULAR HGB CONC 34.5 g/dL (33.0-35.0); MEAN CORPUSCULAR VOLUME 85.5 fL (80.0-100.0); MEAN PLATELET VOLUME 6.7 fL (7.4-11.0); MONOCYTES # (AUTO) 0.5 x10^3/uL (0.3-0.8); MONOCYTES % (AUTO) 5.1 % (0.0-13.0); NEUTROPHILS # (AUTO) 7.4 x10^3/uL (2.2-4.8); NEUTROPHILS % (AUTO) 78.8 % (42.0-75.0); PLATELET COUNT 243 X10^3/uL (150.0-450.0); WHITE BLOOD COUNT 9.4 X10^3/uL (3.6-10.0)
[2017-11-18 20:28] LABS: ALANINE AMINOTRANSFERASE 37 Units/L (12-78); ALBUMIN 2.9 g/dL (3.4-5.0); ALKALINE PHOSPHATASE 61 Units/L (46-116); ASPARTATE AMINO TRANSFERASE 25 Units/L (15-37); BLOOD UREA NITROGEN 18 mg/dL (7-18); CALCIUM 9.1 mg/dL (8.5-10.1); CARBON DIOXIDE 33.4 mmol/L (21-32); CHLORIDE 104 mmol/L (98-107); COR NA(FOR HYPERGLY) 140 mmol/L (136-145); CREATININE 0.94 mg/dL (0.70-1.30); SODIUM 140 mmol/L (136-145); TOTAL PROTEIN 6.7 g/dL (6.4-8.2); eGFR NON BLACK RACES > 60 (>60)
[2017-11-18 20:34] LABS: BILIRUBIN,URINE NEGATIVE (NEGATIVE); BLOOD/HEMOGLOBIN,URINE 2+ (NEGATIVE); GLUCOSE, URINE 2+ (NEGATIVE); KETONES,URINE NEGATIVE (NEGATIVE); LEUKOCYTE ESTERASE ,URINE NEGATIVE (NEGATIVE); NITRITES,URINE NEGATIVE (NEGATIVE); PROTEIN,URINE 2+ (NEGATIVE); UROBILINOGEN,URINE NORMAL (NORMAL)
[2017-11-18 20:41] LABS: APPEARANCE,URINE CLEAR (CLEAR); BACTERIA,URINE TRACE /HPF (NEGATIVE); COLOR,URINE YELLOW (YELLOW); SQUAMOUS EPITHELIAL CELL,UR RARE /HPF (NEGATIVE)
--- NOTE | 2017-11-18 20:54 | CT ---
Head CT without contrast. Indication: Altered mental status with history diabetes. Comparison: Head CT November 08, 2017... Findings: There is mild cerebral atrophy. There is proportionate ventricular enlargement. There is no intracranial hemorrhage, mass effect or hypodensity to suggest ischemia. The globes, orbits and post erior fossa are unremarkable. The bone windows show no abnormality Conclusion: No acute intracranial abnormality. Reported By:
[2017-11-18] MEDS ORDERED: D5W 1000 ML IV 1,000 ML IV SCH (21:00)
--- NOTE | 2017-11-18 21:35 | DR.AMS ---
HPI Time Seen Time seen: 21:05 PCP Primary Care Physician: tereso HPI Comment HPI Comment: HERE VIA EMS. PATIENTS FRIENDS WENT TO SEE HIM AND FOUND HIM UNRESPONSIVE. PATIENT IS A DIABETIC ON INSULIN. GRANDDAUGHTER GAVE HIM HIS INSULIN TODAY. PATIENT SAID HE IS FEELING WEAK AND HAVE NOT FEEL WELL FOR 2 DAYS. NO FEVER OR DYSURIA, Complaint Cheif Complaint Doctors Comments: AMS WITH BG 41. Chief Complaint:: ems stated on scene his otbs was 41 they gave him 1 amp of d50 patients otbs was 161. pt does have ams at this time. Reviewed Nurses Notes Reviewed: Yes Source History Provided: Patient and EMS Mode of Arrival Mode of Arrival: EMS Timing Onset of Chief Complaint: 11/18/17 Came On: Suddenly Symptoms: Improving Duration Duration: Since Onset Duration: Hours (PATIENT SEEN YESTERDAY BY THE COUPLE THAT FOUND HIM. HOME HEALTH NURSE SAW PATIENT TODAY.) Quality Quality: Decreased Alertness, Change in Behavior and Confusion Severity Severity: Moderate Context Recent: Cough History Of: Hypoglycemia, Diabetes and On Insulin Associated Signs and Symptoms Associated Signs and Symptoms: Generalized Weakness and Confusion PMH PMH Past Medical History: Yes Past Medical History: Arthritis, Diabetes, Dyslipidemia and Hypertension Past Surgical History: Yes Surgical History: CABG/Valve Surgery Family History History of Family Medical Conditions: Yes Family Medical History: Diabetes Mellitus, Cancer and Coronary Artery Disease Social History Does patient currently use any type of tobacco product: No Have you used tobacco products in the last 12 months: No Type of Tobacco Use: None Does any household member use tobacco: No Alcohol Use: None Do you use any recreational Drugs:: No Lives With: Family Lives Where: Home infectious screening In the last 2 months have you had wt loss of >10#?: NO Have you had fever, night sweats or hemotysis?: No Have you traveled outside the country in the last 6 months?: No Isolation: Standard ROS Review of Systems Constitutional: Malaise, Weakness and Fatigue; negative Chills and Fever Eyes: negative Eye Pain and Discharge ENTM: No Symptoms Reported, Ear Discharge, Nose Pain and Nose Congestion Respiratoy: Non-Productive Cough, Short of Breath and Wheezing Gastrointestinal/Abdominal: No Symptoms Reported; negative Abdominal Pain, Diarrhea and Vomiting Genitourinary: negative Bleeding Neurological: Weakness and Other (AMS.) Musculoskeletal: Back Pain and Back Integumentary: Change in Color and Dryness Hematologic/Lymphatic: Easy Bleeding and Easy Bruising Endocrine: Excessive Sweating, Intolerance to Cold and Increased Thirst Psychiatric: No Symptoms Reported Unable to Obtain Due To: Altered mental status PE Vitals Vital Signs: Temp Pulse Pulse Resp BP BP BP 11/18/17 23:00 79 19 117/62 11/18/17 22:00 75 20 122/75 11/18/17 21:00 73 24 124/95 11/18/17 20:06 98.6 F 78 18 143/103 11/12/17 16:00 128/70 128/70 11/09/17 02:00 153/78 Pulse Ox 11/18/17 23:00 97 11/18/17 22:00 96 11/18/17 21:00 95 11/18/17 20:06 98 11/12/17 16:00 11/09/17 02:00 General Limitations: Altered Mental Status General Appearance: Alert and In No Apparent Distress Head Head Exam: Normal Inspection and Atraumatic Head Exam Physical: Other (NONE REPORTED.) Eyes Eye exam: negative Scleral Icterus and Conjunctival Injection Pupils: Regular, Round: Bilateral and Reactive: Bilateral ENT ENT Exam: Normal Exam, Normal Oropharynx, Normal External Ear Exam and TM's Normal Bilaterally External Ear Exam: Normal External Inspection TM/Canal Exam: Bilateral: Normal Nose Exam: Normal Nose Exam Mouth Exam: Normal Inspection Throat Exam: Normal Inspection Neck Neck Exam: Normal Inspection and Trachea Midline Respiratory Respiratory Exam: Normal Lung Sounds Bilat Respiratory Exam: Bilateral: Wheezing and Bilateral: Rhonchi, Upper: Rhonchi and Lower: Wheezing and Lower: Rhonchi Cardiovascular Cardiovascular Exam: Normal Rhythm and Normal Heart Sounds Abdominal Exam Abdominal Exam: Normal Inspection, Normal Bowel Sounds and Soft; negative Tenderness Extremities Extremities Exam: Normal Inspection; negative Edema Back Back Exam: Normal Inspection Neurological Neurological Exam: Alert and CN II-XII Intact; negative Motor Sensory Deficit Patient Oriented To: Person and Place Speech: Other (SLIGHTLY SLOW SPEECH THAT IS IMPROVING.) Cranial Nerve Exam: EOM Function (II, III, IV, ): Normal, Facial Sensation (V) : Normal, Facial Palsy (VII): Normal, Gag reflex (XI): Normal and Tongue Deviation: Normal Motor Strength - LUE: 5/5 Motor Strength - RUE: 5/5 Motor Strength - LLE: 5/5 Motor Strength - RLE: 5/5 Psychological Psychiatric Exam: Normal Affect and Normal Mood Skin Skin Exam: Dry and Erythema MDM Additional Information Obtained Additional Information Obtained From: Family (FRIENDS/NEIGBOR OF PATIENT HERE AND GAVE US HISTORY) Differential Diagnosis Metabolic: Dehydration, DKA, Hypercalcemia, Hypernatremia, Hypoglycemia, Hyponatremia and Hypoxemia Structural: Closed Head Injury and CVA Infectious: Sepsis and UTI Environmental: Hypothermia COURSE Treatment Treatment: SEE ORDERS. Consultation Consultation Comments: DISCUSS PATIENT WITH DR. ZUNIGA. HE WILL ADMIT PATIENT. Education/Counseling Education/Counseling: Patient, Family and Education Educated On: Diagnosis ROR Labs Reviewed Result Diagrams: 11/18/17 20:05 11/18/17 22:16 Laboratory: WBC 9.4 X10^3/uL (3.6-10.0) 11/18/17 20:05 RBC 5.00 X10^6/uL (4.7-6.0) 11/18/17 20:05 Hgb 14.8 g/dL (13.5-18.0) 11/18/17 20:05 Hct 42.8 % (42.0-54.0) 11/18/17 20:05 MCV 85.5 fL (80.0-100.0) 11/18/17 20:05 MCH 29.5 pg (27.0-34.0) 11/18/17 20:05 MCHC 34.5 g/dL (33.0-35.0) 11/18/17 20:05 RDW 15.0 % (11.6-16.5) 11/18/17 20:05 Plt Count 243 X10^3/uL (150.0-450.0) 11/18/17 20:05 MPV 6.7 fL (7.4-11.0) L 11/18/17 20:05 Neut % (Auto) 78.8 % (42.0-75.0) H 11/18/17 20:05 Lymph % (Auto) 15.0 % (21.0-51.0) L 11/18/17 20:05 [place] % (Auto) 5.1 % (0.0-13.0) 11/18/17 20:05 Eos % (Auto) 0.8 % (0.9-2.9) L 11/18/17 20:05 Baso % (Auto) 0.3 % (0.2-1.0) 11/18/17 20:05 Neut # (Auto) 7.4 x10^3/uL (2.2-4.8) H 11/18/17 20:05 Lymph # (Auto) 1.4 X10^3/uL (1.3-2.9) 11/18/17 20:05 [place] # (Auto) 0.5 x10^3/uL (0.3-0.8) 11/18/17 20:05 Eos # (Auto) 0.1 x10^3/uL (0.0-0.2) 11/18/17 20:05 Baso # (Auto) 0.0 X10^3/uL (0.0-0.1) 11/18/17 20:05 Absolute Nucleated RBC 0.1 /100WBC 11/18/17 20:05 Sodium 140 mmol/L (136-145) 11/18/17 20:05 Corrected Sodium 140 mmol/L (136-145) 11/18/17 20:05 Potassium 3.8 mmol/L (3.5-5.1) 11/18/17 20:05 Chloride 104 mmol/L (98-107) 11/18/17 20:05 Carbon Dioxide 33.4 mmol/L (21-32) H 11/18/17 20:05 BUN 18 mg/dL (7-18) 11/18/17 20:05 Creatinine 0.94 mg/dL (0.70-1.30) 11/18/17 20:05 Est GFR (MDRD) Af Amer > 60 (>60) 11/18/17 20:05 Est GFR (MDRD) Non-Af > 60 (>60) 11/18/17 20:05 Glucose 108 mg/dL (65-99) H 11/18/17 22:16 Calcium 9.1 mg/dL (8.5-10.1) 11/18/17 20:05 Corrected Calcium 10.0 mg/dL (8.5-10.1) 11/18/17 20:05 Total Bilirubin 0.30 mg/dL (0.2-1.0) 11/18/17 20:05 AST 25 Units/L (15-37) 11/18/17 20:05 ALT 37 Units/L (12-78) 11/18/17 20:05 Alkaline Phosphatase 61 Units/L (46-116) 11/18/17 20:05 Total Protein 6.7 g/dL (6.4-8.2) 11/18/17 20:05 Albumin 2.9 g/dL (3.4-5.0) L 11/18/17 20:05 Globulin 3.8 g/dL (2.5-4.5) 11/18/17 20:05 Albumin/Globulin Ratio 0.8 Ratio (1.1-2.1) L 11/18/17 20:05 Specimen Type Random urine 11/18/17 20:25 Urine Color Yellow (YELLOW) 11/18/17 20:25 Urine Appearance Clear (CLEAR) 11/18/17 20:25 Urine pH 6.0 (5.0 - 8.0) 11/18/17 20:25 Ur Specific [place] 1.020 (1.000-1.030) 11/18/17 20:25 Urine Protein 2+ (NEGATIVE) 11/18/17 20:25 Urine Glucose (UA) 2+ (NEGATIVE) 11/18/17 20:25 Urine Ketones Negative (NEGATIVE) 11/18/17 20:25 Urine Occult Blood 2+ (NEGATIVE) 11/18/17 20:25 Urine Nitrite Negative (NEGATIVE) 11/18/17 20:25 Urine Bilirubin Negative (NEGATIVE) 11/18/17 20:25 Urine Urobilinogen Normal (NORMAL) 11/18/17 20:25 Ur Leukocyte Esterase Negative (NEGATIVE) 11/18/17 20:25 Urine RBC 3-5 /HPF (NONE SEEN) 11/18/17 20:25 Urine WBC 0-2 /HPF (NONE SEEN) 11/18/17 20:25 Ur Squamous Epith Cells Rare /HPF (NEGATIVE) 11/18/17 20:25 Urine Bacteria Trace /HPF (NEGATIVE) 11/18/17 20:25 Ur Culture Indicated? No/not indicated 11/18/17 20:25 XRAY XRAY Interpreted by: Radiologist XRAY Findings: REPORT NOTED. EKG Rate: 93 Rhythm: NSR Block: LBBB and RBBB Hypertrophy: None Diagnosis Discharge Problem: Altered mental status, Hypoglycemia, Generalized weakness
[2017-11-19] MEDS ORDERED: D5 NS 1000 ML 1,000 ML IV ONE (00:20)
[2017-11-19] MEDS ORDERED: D5W 1000 ML IV 1,000 ML IV SCH ×2 (01:00)
[2017-11-19 02:02] VITALS: BMI 32.5
[2017-11-19] MEDS ORDERED: LANTISEPTIC TOP PRN (02:32)
[2017-11-19 03:37] LABS: BILIRUBIN,URINE NEGATIVE (NEGATIVE); BLOOD/HEMOGLOBIN,URINE 1+ (NEGATIVE); GLUCOSE, URINE NEGATIVE (NEGATIVE); KETONES,URINE NEGATIVE (NEGATIVE); LEUKOCYTE ESTERASE ,URINE NEGATIVE (NEGATIVE); NITRITES,URINE NEGATIVE (NEGATIVE); PROTEIN,URINE 2+ (NEGATIVE); UROBILINOGEN,URINE NORMAL (NORMAL)
[2017-11-19 03:48] LABS: APPEARANCE,URINE CLEAR (CLEAR); BACTERIA,URINE NEGATIVE /HPF (NEGATIVE); COLOR,URINE YELLOW (YELLOW); RBC,URINE 0-2 /HPF (NONE SEEN); SQUAMOUS EPITHELIAL CELL,UR RARE /HPF (NEGATIVE)
[2017-11-19 04:14] LABS: BASOPHILS # (AUTO) 0.1 X10^3/uL (0.0-0.1); BASOPHILS % (AUTO) 0.5 % (0.2-1.0); EOSINOPHILS # (AUTO) 0.1 x10^3/uL (0.0-0.2); EOSINOPHILS % (AUTO) 0.7 % (0.9-2.9); HEMATOCRIT 39.6 % (42.0-54.0); HEMOGLOBIN 13.6 g/dL (13.5-18.0); LYMPHOCYTES # (AUTO) 1.8 X10^3/uL (1.3-2.9); LYMPHOCYTES % (AUTO) 14.7 % (21.0-51.0); MEAN CORPUSCULAR HEMOGLOBIN 28.9 pg (27.0-34.0); MEAN CORPUSCULAR HGB CONC 34.4 g/dL (33.0-35.0); MEAN PLATELET VOLUME 6.7 fL (7.4-11.0); MONOCYTES # (AUTO) 0.8 x10^3/uL (0.3-0.8); MONOCYTES % (AUTO) 6.2 % (0.0-13.0); NEUTROPHILS # (AUTO) 9.8 x10^3/uL (2.2-4.8); NEUTROPHILS % (AUTO) 77.9 % (42.0-75.0); PLATELET COUNT 240 X10^3/uL (150.0-450.0); RED BLOOD COUNT 4.71 X10^6/uL (4.7-6.0); WHITE BLOOD COUNT 12.5 X10^3/uL (3.6-10.0)
[2017-11-19 04:21] LABS: ALANINE AMINOTRANSFERASE 31 Units/L (12-78); ALBUMIN 2.6 g/dL (3.4-5.0); ALKALINE PHOSPHATASE 53 Units/L (46-116); ASPARTATE AMINO TRANSFERASE 23 Units/L (15-37); BLOOD UREA NITROGEN 16 mg/dL (7-18); CALCIUM 8.4 mg/dL (8.5-10.1); CARBON DIOXIDE 31.3 mmol/L (21-32); CHLORIDE 104 mmol/L (98-107); CHOL/HDL RATIO 2.2 (0.0-5.0); CHOLESTEROL 69 mg/dL (0-200); COR CA(FOR HYPOALB) 9.5 mg/dL (8.5-10.1); CREATININE 0.97 mg/dL (0.70-1.30); HDL CHOLESTEROL 31 mg/dL (40-60); MAGNESIUM 1.4 mg/dL (1.7-2.9); SODIUM 138 mmol/L (136-145); TRIGLYCERIDES 146 mg/dL (0-150); eGFR NON BLACK RACES > 60 (>60)
[2017-11-19 05:00] LABS: CKMB % 4.9 % (<4)
[2017-11-19] MEDS ORDERED: D5W 1000 ML IV 1,000 ML IV PRN (06:04)
--- NOTE | 2017-11-19 06:53 | RAD ---
HISTORY: Abdominal pain Study: Abdomen series with frontal chest Comparison: 11/09/2017 Technique: KUB, decubitus abdomen and AP views the chest provided. Findings: There are again changes of CABG with median sternotomy sutures and metallic sutures indicating goldstein ry artery bypass grafts. Trachea is midline. The examination is expiratory with accentuation of the t ransverse cardiac diameter and bronchovascular markings. There is likely cardiomegaly. Osseous struct ures are intact. Decubitus view reveals no evidence of free intraperitoneal air. Mild gaseous distention of the stomac h is appreciated. There is moderate stool present within the ascending colon. No bowel obstruction is seen. No evidence of opaque stone is identified. Osseous structures are intact. IMPRESSION: Mild cardiomegaly. No acute disease is seen. Gaseous distention of the stomach. No evidence of bowel obstruction or perforation is seen. Reported By:
[2017-11-19] MEDS ORDERED: LR 1000 ML IV 1,000 ML IV ONE (09:46)
[2017-11-19] MEDS: LR 1000 ML IV 1,000 ML IV SCH ×3 (09:58→23:37)
[2017-11-19] MEDS ORDERED: ACTOS PO SCH (10:00)
--- NOTE | 2017-11-19 10:00 | DR.H&P ---
H&P History & Physical for Day of: H&P Date: 11/18/17 Chief Complaint Chief Complaint: hypoglycemia, ams Allergies Allergies Allergy/AdvReac Type Severity Reaction Status Date / Time Penicillins Allergy Mild Verified 11/18/17 20:06 Sulfa (Sulfonamide Allergy Mild Verified 11/18/17 20:06 Antibiotics) [SULFA] History of Present Illness History of Present Illness: found unresponsive at home Past Medical History Past Medical History: Arthritis, Diabetes, Dyslipidemia and Hypertension Past Surgical History Surgical History: CABG/Valve Surgery Family History Family Medical History: Diabetes Mellitus, Cancer and Coronary Artery Disease Social History Does patient currently use any type of tobacco product: No Have you used tobacco products in the last 12 months: No Type of Tobacco Use: None Does any household member use tobacco: No Alcohol Use: None Drug Use: None Medications Home Medications: Penicillins Allergy (Mild, Verified 11/18/17 20:06) Sulfa (Sulfonamide Antibiotics) [SULFA] Allergy (Mild, Verified 11/18/17 20:06) CONTINUE taking the following medications gabapentin 1 tab PO TID 11/19/17 [History] Review of Systems Constitutional: No Symptoms Reported and Weakness Eyes: No Symptoms Reported ENT: No Symptoms Reported Respiratory: No Symptoms Reported Cardiovascular: No Symptoms Reported Gastrointestinal: No Symptoms Reported Genitourinary: No Symptoms Reported Musculoskeletal: No Symptoms Reported Skin: No Symptoms Reported Neurological: No Symptoms Reported Physical Exam Vital Signs: Temperature 98.6 F Pulse Rate [Left] 84 Pulse Rate 78 Respiratory Rate 18 Blood Pressure [Left Arm] 113/57 Blood Pressure [Right Arm] 122/58 Blood Pressure 143/103 O2 Sat by Pulse Oximetry 94 Oriented: Normal Eyes: Normal Ear: Normal Nose: Normal Throat: Normal Respiratory: Clear Throughout Cardiovascular: Normal : Normal and Other (ward present) Auscultation: Bowel Sounds: Normal Palpation: Normal Tenderness: Normal Skin: Normal and Other (multiple candis k's) Musculoskeletal: Normal Psychiatric: Normal Mood Description: Calm and Appropriate Affect: Normal Speech Pattern: Clear and Appropriate Assessment/Plan (1) Hypoglycemia, exogenous hyperinsulinemia: Status: Acute Plan: change lantus dosing, stop glipizide, add insulin sensitizers and stop sugar and starch intake.
[2017-11-19] MEDS: GLUCOPHAGE XR PO SCH ×2 (11:27→21:34)
[2017-11-19] MEDS: ZOFRAN INJ 4 MG VIAL IVP PRN (14:53)
[2017-11-20] MEDS: ZOFRAN INJ 4 MG VIAL IVP PRN (01:26)
[2017-11-20] MEDS ORDERED: D50W ABBOJECT SYR ONE (01:51)
[2017-11-20] MEDS ORDERED: D50W ABBOJECT SYR IV ONE (01:55)
[2017-11-20 06:31] LABS: BASOPHILS # (AUTO) 0.1 X10^3/uL (0.0-0.1); BASOPHILS % (AUTO) 0.8 % (0.2-1.0); EOSINOPHILS # (AUTO) 0.1 x10^3/uL (0.0-0.2); EOSINOPHILS % (AUTO) 1.1 % (0.9-2.9); HEMATOCRIT 37.7 % (42.0-54.0); HEMOGLOBIN 12.9 g/dL (13.5-18.0); LYMPHOCYTES # (AUTO) 2.1 X10^3/uL (1.3-2.9); LYMPHOCYTES % (AUTO) 25.7 % (21.0-51.0); MEAN CORPUSCULAR HEMOGLOBIN 29.3 pg (27.0-34.0); MEAN CORPUSCULAR HGB CONC 34.4 g/dL (33.0-35.0); MEAN CORPUSCULAR VOLUME 85.2 fL (80.0-100.0); MONOCYTES # (AUTO) 0.6 x10^3/uL (0.3-0.8); MONOCYTES % (AUTO) 7.4 % (0.0-13.0); NEUTROPHILS # (AUTO) 5.4 x10^3/uL (2.2-4.8); PLATELET COUNT 196 X10^3/uL (150.0-450.0); RED BLOOD COUNT 4.42 X10^6/uL (4.7-6.0); WHITE BLOOD COUNT 8.2 X10^3/uL (3.6-10.0)
[2017-11-20] MEDS ORDERED: POTASSIUM CHL 40 MEQ/NS 0.45% 500 ML IV PRN (06:44)
[2017-11-20] MEDS ORDERED: K-RIDER 10 MEQ/NS 100 ML 10 MEQ/100 ML BAG IV PRN (06:44)
[2017-11-20] MEDS ORDERED: POTASSIUM CHLORIDE LIQ 20 MEQ UDC PO PRN (06:44)
[2017-11-20] MEDS ORDERED: POTASSIUM CHL 60 MEQ/NS 0.45% 500 ML IV PRN (06:44)
[2017-11-20] MEDS ORDERED: K-LYTE EFFERVESCENT PO PRN (06:44)
[2017-11-20 06:53] LABS: ALANINE AMINOTRANSFERASE 29 Units/L (12-78); ALBUMIN 2.5 g/dL (3.4-5.0); ALKALINE PHOSPHATASE 53 Units/L (46-116); ASPARTATE AMINO TRANSFERASE 27 Units/L (15-37); BLOOD UREA NITROGEN 13 mg/dL (7-18); CALCIUM 8.3 mg/dL (8.5-10.1); CHLORIDE 105 mmol/L (98-107); COR CA(FOR HYPOALB) 9.5 mg/dL (8.5-10.1); CREATININE 1.05 mg/dL (0.70-1.30); SODIUM 142 mmol/L (136-145); TOTAL PROTEIN 5.8 g/dL (6.4-8.2); eGFR NON BLACK RACES > 60 (>60)
[2017-11-20] MEDS: GLUCOPHAGE XR PO SCH ×3 (09:05→21:16)
[2017-11-20] MEDS: LR 1000 ML IV 1,000 ML IV SCH (12:24)
[2017-11-20] MEDS: MAGNESIUM SULFATE 1 GRAM/100 mL PREMIX 1 GM/100 ML BAG IV PRN ×2 (16:00→17:05)
[2017-11-21] MEDS: LR 1000 ML IV 1,000 ML IV SCH (03:00)
--- NOTE | 2017-11-21 08:30 | PCM.DCPLAN ---
DISCHARGE SUMMARY Admission Date Date of Admission: 11/19/17 Discharge Date Discharge Date: 11/21/17 Admission Diagnoses (1) Hypoglycemia, exogenous hyperinsulinemia: Status: Acute Discharge Diagnoses Discharge Diagnosis: same Discharge Medications Discharge Medications: Home Medication List gabapentin 1 tab PO TID 11/19/17 [History] metformin 1,000 mg PO BID #120 tab 11/21/17 [Rx] pioglitazone 15 mg PO DAILY #30 tab 11/21/17 [Rx] Prescriptions: metformin DORITA ANDUJAR pioglitazone DORITA ANDUJAR Hospital Course Vital Signs: Temperature 97.8 F Pulse Rate [Right Brachial] 72 Pulse Rate [Left] 84 Pulse Rate 78 Respiratory Rate 18 Blood Pressure [Left Arm] 152/73 Blood Pressure [Right Arm] 155/70 Blood Pressure 143/103 O2 Sat by Pulse Oximetry 96 Latest Lab Results: Laboratory Last Values WBC 8.2 X10^3/uL (3.6-10.0) 11/20/17 06:00 RBC 4.42 X10^6/uL (4.7-6.0) L 11/20/17 06:00 Hgb 12.9 g/dL (13.5-18.0) L 11/20/17 06:00 Hct 37.7 % (42.0-54.0) L 11/20/17 06:00 MCV 85.2 fL (80.0-100.0) 11/20/17 06:00 MCH 29.3 pg (27.0-34.0) 11/20/17 06:00 MCHC 34.4 g/dL (33.0-35.0) 11/20/17 06:00 RDW 15.0 % (11.6-16.5) 11/20/17 06:00 Plt Count 196 X10^3/uL (150.0-450.0) 11/20/17 06:00 MPV 7.0 fL (7.4-11.0) L 11/20/17 06:00 Neut % (Auto) 65.0 % (42.0-75.0) 11/20/17 06:00 Lymph % (Auto) 25.7 % (21.0-51.0) 11/20/17 06:00 [place] % (Auto) 7.4 % (0.0-13.0) 11/20/17 06:00 Eos % (Auto) 1.1 % (0.9-2.9) 11/20/17 06:00 Baso % (Auto) 0.8 % (0.2-1.0) 11/20/17 06:00 Neut # (Auto) 5.4 x10^3/uL (2.2-4.8) H 11/20/17 06:00 Lymph # (Auto) 2.1 X10^3/uL (1.3-2.9) 11/20/17 06:00 [place] # (Auto) 0.6 x10^3/uL (0.3-0.8) 11/20/17 06:00 Eos # (Auto) 0.1 x10^3/uL (0.0-0.2) 11/20/17 06:00 Baso # (Auto) 0.1 X10^3/uL (0.0-0.1) 11/20/17 06:00 Absolute Nucleated RBC 0.0 /100WBC 11/20/17 06:00 INR Target Range - 11/19/17 03:57 INR 1.05 (0.8-1.3) 11/19/17 03:57 APTT 33.5 SECONDS (22.9-36.5) 11/19/17 03:57 PTT Comment - 11/19/17 03:57 Sodium 142 mmol/L (136-145) 11/20/17 06:00 Corrected Sodium TNP 11/20/17 06:00 Potassium 3.8 mmol/L (3.5-5.1) 11/20/17 17:12 Chloride 105 mmol/L (98-107) 11/20/17 06:00 Carbon Dioxide 32.0 mmol/L (21-32) 11/20/17 06:00 BUN 13 mg/dL (7-18) 11/20/17 06:00 Creatinine 1.05 mg/dL (0.70-1.30) 11/20/17 06:00 Est GFR (MDRD) Af Amer > 60 (>60) 11/20/17 06:00 Est GFR (MDRD) Non-Af > 60 (>60) 11/20/17 06:00 Glucose 109 mg/dL (65-99) H 11/20/17 06:00 POC Glucose (mg/dL) 127 mg/dL (65-99) H 11/21/17 07:36 Calcium 8.3 mg/dL (8.5-10.1) L 11/20/17 06:00 Corrected Calcium 9.5 mg/dL (8.5-10.1) 11/20/17 06:00 Magnesium 2.1 mg/dL (1.7-2.9) 11/21/17 05:33 Total Bilirubin 0.40 mg/dL (0.2-1.0) 11/20/17 06:00 AST 27 Units/L (15-37) 11/20/17 06:00 ALT 29 Units/L (12-78) 11/20/17 06:00 Alkaline Phosphatase 53 Units/L (46-116) 11/20/17 06:00 Creatine Kinase 81 Units/L (39-308) 11/19/17 03:57 CK-MB (CK-2) 4.0 ng/mL (0-4.0) 11/19/17 03:57 CK/CKMB % Calc 4.9 % (<4) 11/19/17 03:57 Troponin I 0.00 ng/mL (0-1.5) 11/19/17 03:57 Total Protein 5.8 g/dL (6.4-8.2) L 11/20/17 06:00 Albumin 2.5 g/dL (3.4-5.0) L 11/20/17 06:00 Globulin 3.3 g/dL (2.5-4.5) 11/20/17 06:00 Albumin/Globulin Ratio 0.8 Ratio (1.1-2.1) L 11/20/17 06:00 Triglycerides 146 mg/dL (0-150) 11/19/17 03:57 Cholesterol 69 mg/dL (0-200) 11/19/17 03:57 LDL Cholesterol, Calc 9 mg/dL (0-100) 11/19/17 03:57 HDL Cholesterol 31 mg/dL (40-60) L 11/19/17 03:57 Cholesterol/HDL Ratio 2.2 (0.0-5.0) 11/19/17 03:57 Amylase 80 Units/L (25-115) 11/19/17 03:57 Specimen Type Catherized urine 11/19/17 03:20 Urine Color Yellow (YELLOW) 11/19/17 03:20 Urine Appearance Clear (CLEAR) 11/19/17 03:20 Urine pH 5.0 (5.0 - 8.0) 11/19/17 03:20 Ur Specific [place] 1.010 (1.000-1.030) 11/19/17 03:20 Urine Protein 2+ (NEGATIVE) 11/19/17 03:20 Urine Glucose (UA) Negative (NEGATIVE) 11/19/17 03:20 Urine Ketones Negative (NEGATIVE) 11/19/17 03:20 Urine Occult Blood 1+ (NEGATIVE) 11/19/17 03:20 Urine Nitrite Negative (NEGATIVE) 11/19/17 03:20 Urine Bilirubin Negative (NEGATIVE) 11/19/17 03:20 Urine Urobilinogen Normal (NORMAL) 11/19/17 03:20 Ur Leukocyte Esterase Negative (NEGATIVE) 11/19/17 03:20 Urine RBC 0-2 /HPF (NONE SEEN) 11/19/17 03:20 Urine WBC None seen /HPF (NONE SEEN) 11/19/17 03:20 Ur Squamous Epith Cells Rare /HPF (NEGATIVE) 11/19/17 03:20 Urine Bacteria Negative /HPF (NEGATIVE) 11/19/17 03:20 Ur Culture Indicated? No/not indicated 11/19/17 03:20 Hospital Course: pts insulin and glipizide stopped. insulin sensitizers started. blood sugar stabilized. Pt cautioned to continue a low carb diet to avoid hyperglycemia. Pt being transfered to rehab facility for rehab, and i will f/u in 1 month
[2017-11-21] MEDS: GLUCOPHAGE XR PO SCH (08:46)
[2017-11-21 12:37] VITALS: BP 148/71
== END 2017-11-21 17:10 ==
LOC: ER 20:05 → OBS 20:05
PROVIDERS: ADMIT Internal Medicine; ATTEND Obstetrics & Gynecology Obstetrics
DX: E11.649 Type 2 diabetes mellitus with hypoglycemia without coma; Z79.01 Long term (current) use of anticoagulants; R53.1 Weakness; R06.02 Shortness of breath; I10 Essential (primary) hypertension; Z79.4 Long term (current) use of insulin; E78.2 Mixed hyperlipidemia; R94.31 Abnormal electrocardiogram [ECG] [EKG]; Z79.899 Other long term (current) drug therapy; R26.89 Other abnormalities of gait and mobility
CPT/HCPCS: 36415; 70450; 74022; 80053; 80061; 81001; 82150; 82550; 82553; 82947; 83735; 84132; 84484; 85025; 85610; 85730; 93005; 93010; 94760; 96365; 96367; 97110; 97116; 97163; 97167; 97530; 97535; 99284; A4216; A4222; G0378; J2405; J3475; J3480; J3490; J7030; J7042; J7060; J7120

== ENCOUNTER 2017-12-21 00:07 | Inpatient (IN) ==
--- NOTE | 2017-12-21 03:30 | DR.GENAD ---
HPI Time Seen Time Seen by Provider: 12/21/17 02:56 PCP Primary Care Physician: ANDUJAR Complaint/Symptoms Chief Complaint Doctors Comments: Patient presented to the ED with complaint of low blood sugar today, reported to be 88 by EMS and he was given one amp of glucose. He is alert in no acute distress. He reports that he has had diabetes for about 8-10 years and [facility] He states that he does not think he has eaten today Chief Complaint:: AMS, UNRESPONSIVE, LOW BLOOD SUGAR Self Treatment fo Chief Complaint: NONE, EMS PROVIDED TREATMENT Source History Provided: Patient Timing Onset of Chief Complaint: 12/21/17 PMH PMH Past Medical History: Yes Past Medical History: Diabetes Past Surgical History: Yes Surgical History: CABG/Valve Surgery Family History History of Family Medical Conditions: Yes Family Medical History: Diabetes Mellitus, Cancer and Coronary Artery Disease Social History Alcohol Use: None Do you use any recreational Drugs:: No Lives With: Family Lives Where: Home infectious screening In the last 2 months have you had wt loss of >10#?: NO Have you had fever, night sweats or hemotysis?: No Have you traveled outside the country in the last 6 months?: No Isolation: Standard PE Vital Signs Vitals: Temperature 98.6 F Pulse Rate [Left Brachial] 70 Pulse Rate [Right Brachial] 64 Pulse Rate [Apical] 77 Pulse Rate 74 Respiratory Rate 20 Blood Pressure [Left Arm] 112/58 Blood Pressure [Right Arm] 113/60 Blood Pressure 141/82 O2 Sat by Pulse Oximetry 93 General Limitations: No Limitations General Appearance: Alert and In No Apparent Distress; negative In Distress Head Head Exam: Normal Inspection, Atraumatic and Normocephalic Eyes Eye exam: Normal Appearance, PERRL and EOMI ENT ENT Exam: Normal Exam, Normal Oropharynx and Normal External Ear Exam External Ear Exam: Normal External Inspection and Auricular Hematoma TM/Canal Exam: Bilateral: Normal Nose Exam: Normal Nose Exam Mouth Exam: Normal Inspection Throat Exam: Normal Inspection and Tonsillar Erythema Neck Neck Exam: Normal Inspection and Full ROM Chest Chest Inspection: Normal Inspection and Symmetric Chest Wall Rise Respiratory Respiratory Exam: Normal Lung Sounds Bilat Respiratory Exam: Bilateral: Clear to Auscultation Cardiovascular Cardiovascular Exam: Regular Rate and Normal Rhythm Abdominal Exam Abdominal Exam: Normal Inspection, Normal Bowel Sounds and Soft Abdominal Tenderness: negative RUQ, RLQ and LUQ Extremities Extremities Exam: Normal Inspection and Full ROM Back Back Exam: Normal Inspection and Full ROM Neurologic Neurological Exam: Alert, Oriented X3 and CN II-XII Intact Psychiatric Psychiatric Exam: Normal Affect and Normal Mood Skin Skin Exam: Warm and Intact COURSE Consultation Called: 07:00 Consultation Comments: Dr Andujar agreed to admit for further evaluation ROR Labs Reviewed Laboratory Results Reviewed?: Yes Result Diagrams: 12/21/17 03:25 12/21/17 03:25 Laboratory: WBC 8.9 X10^3/uL (3.6-10.0) 12/21/17 03:25 RBC 4.79 X10^6/uL (4.7-6.0) 12/21/17 03:25 Hgb 14.5 g/dL (13.5-18.0) 12/21/17 03:25 Hct 41.3 % (42.0-54.0) L 12/21/17 03:25 MCV 86.3 fL (80.0-100.0) 12/21/17 03:25 MCH 30.2 pg (27.0-34.0) 12/21/17 03:25 MCHC 35.0 g/dL (33.0-35.0) 12/21/17 03:25 RDW 16.3 % (11.6-16.5) 12/21/17 03:25 Plt Count 204 X10^3/uL (150.0-450.0) 12/21/17 03:25 MPV 7.1 fL (7.4-11.0) L 12/21/17 03:25 Neut % (Auto) 67.5 % (42.0-75.0) 12/21/17 03:25 Lymph % (Auto) 23.8 % (21.0-51.0) 12/21/17 03:25 [place] % (Auto) 6.8 % (0.0-13.0) 12/21/17 03:25 Eos % (Auto) 1.1 % (0.9-2.9) 12/21/17 03:25 Baso % (Auto) 0.8 % (0.2-1.0) 12/21/17 03:25 Neut # (Auto) 6.0 x10^3/uL (2.2-4.8) H 12/21/17 03:25 Lymph # (Auto) 2.1 X10^3/uL (1.3-2.9) 12/21/17 03:25 [place] # (Auto) 0.6 x10^3/uL (0.3-0.8) 12/21/17 03:25 Eos # (Auto) 0.1 x10^3/uL (0.0-0.2) 12/21/17 03:25 Baso # (Auto) 0.1 X10^3/uL (0.0-0.1) 12/21/17 03:25 Absolute Nucleated RBC 0.1 /100WBC 12/21/17 03:25 Sodium 141 mmol/L (136-145) 12/21/17 03:25 Corrected Sodium TNP 12/21/17 03:25 Potassium 4.9 mmol/L (3.5-5.1) 12/21/17 03:25 Chloride 104 mmol/L (98-107) 12/21/17 03:25 Carbon Dioxide 28.5 mmol/L (21-32) 12/21/17 03:25 BUN 19 mg/dL (7-18) H 12/21/17 03:25 Creatinine 1.20 mg/dL (0.70-1.30) 12/21/17 03:25 Est GFR (MDRD) Af Amer > 60 (>60) 12/21/17 03:25 Est GFR (MDRD) Non-Af > 60 (>60) 12/21/17 03:25 Glucose 99 mg/dL (65-99) 12/21/17 03:25 POC Glucose (mg/dL) 112 mg/dL (65-99) H 12/22/17 05:41 Calcium 9.7 mg/dL (8.5-10.1) 12/21/17 03:25 Corrected Calcium TNP 12/21/17 03:25 Total Bilirubin 0.50 mg/dL (0.2-1.0) 12/21/17 03:25 AST 23 Units/L (15-37) 12/21/17 03:25 ALT 34 Units/L (12-78) 12/21/17 03:25 Alkaline Phosphatase 77 Units/L (46-116) 12/21/17 03:25 Total Protein 7.5 g/dL (6.4-8.2) 12/21/17 03:25 Albumin 3.6 g/dL (3.4-5.0) 12/21/17 03:25 Globulin 3.9 g/dL (2.5-4.5) 12/21/17 03:25 Albumin/Globulin Ratio 0.9 Ratio (1.1-2.1) L 12/21/17 03:25 Specimen Type Random urine 12/21/17 06:05 Urine Color Yellow (YELLOW) 12/21/17 06:05 Urine Appearance Hazy (CLEAR) 12/21/17 06:05 Urine pH 5.0 (5.0 - 8.0) 12/21/17 06:05 Ur Specific [place] 1.020 (1.000-1.030) 12/21/17 06:05 Urine Protein 3+ (NEGATIVE) 12/21/17 06:05 Urine Glucose (UA) Negative (NEGATIVE) 12/21/17 06:05 Urine Ketones Negative (NEGATIVE) 12/21/17 06:05 Urine Occult Blood 1+ (NEGATIVE) 12/21/17 06:05 Urine Nitrite Negative (NEGATIVE) 12/21/17 06:05 Urine Bilirubin Negative (NEGATIVE) 12/21/17 06:05 Urine Urobilinogen Normal (NORMAL) 12/21/17 06:05 Ur Leukocyte Esterase Negative (NEGATIVE) 12/21/17 06:05 Urine RBC 0-2 /HPF (NONE SEEN) 12/21/17 06:05 Urine WBC 0-2 /HPF (NONE SEEN) 12/21/17 06:05 Ur Squamous Epith Cells Rare /HPF (NEGATIVE) 12/21/17 06:05 Urine Bacteria Trace /HPF (NEGATIVE) 12/21/17 06:05 Urine Mucus Few /HPF (NEGATIVE) 12/21/17 06:05 Ur Culture Indicated? No/not indicated 12/21/17 06:05 Other Results Comments: CT Brain: negative XRAY XRAY Interpreted by: Radiologist XRAY Findings: Chest: Retrocardiac opacity suggesting atelectasis,infiltrate and /or effusi Diagnosis Discharge Problem: Cardiomegaly, Atelectasis, left, Infiltrate of left lung present on chest x-ray
[2017-12-21 03:33] LABS: BASOPHILS # (AUTO) 0.1 X10^3/uL (0.0-0.1); BASOPHILS % (AUTO) 0.8 % (0.2-1.0); EOSINOPHILS # (AUTO) 0.1 x10^3/uL (0.0-0.2); EOSINOPHILS % (AUTO) 1.1 % (0.9-2.9); HEMATOCRIT 41.3 % (42.0-54.0); HEMOGLOBIN 14.5 g/dL (13.5-18.0); LYMPHOCYTES # (AUTO) 2.1 X10^3/uL (1.3-2.9); LYMPHOCYTES % (AUTO) 23.8 % (21.0-51.0); MEAN CORPUSCULAR HEMOGLOBIN 30.2 pg (27.0-34.0); MEAN CORPUSCULAR VOLUME 86.3 fL (80.0-100.0); MEAN PLATELET VOLUME 7.1 fL (7.4-11.0); MONOCYTES # (AUTO) 0.6 x10^3/uL (0.3-0.8); MONOCYTES % (AUTO) 6.8 % (0.0-13.0); NEUTROPHILS % (AUTO) 67.5 % (42.0-75.0); PLATELET COUNT 204 X10^3/uL (150.0-450.0); RED BLOOD COUNT 4.79 X10^6/uL (4.7-6.0); RED CELL DISTRIBUTION WIDTH 16.3 % (11.6-16.5); WHITE BLOOD COUNT 8.9 X10^3/uL (3.6-10.0)
[2017-12-21 03:43] LABS: ALANINE AMINOTRANSFERASE 34 Units/L (12-78); ALBUMIN 3.6 g/dL (3.4-5.0); ALKALINE PHOSPHATASE 77 Units/L (46-116); ASPARTATE AMINO TRANSFERASE 23 Units/L (15-37); BLOOD UREA NITROGEN 19 mg/dL (7-18); CALCIUM 9.7 mg/dL (8.5-10.1); CARBON DIOXIDE 28.5 mmol/L (21-32); CHLORIDE 104 mmol/L (98-107); SODIUM 141 mmol/L (136-145); TOTAL PROTEIN 7.5 g/dL (6.4-8.2); eGFR NON BLACK RACES > 60 (>60)
--- NOTE | 2017-12-21 03:46 | RAD ---
Chest, one view Indication: Altered mental status, unresponsive Comparison: 12/19/2017 Findings: The patient is rotated to the left. Accounting for this, cardiac silhouette enlargement and changes of previous median sternotomy and CABG are stable. There is decreased depth of inspiration w ith retrocardiac opacity. Mild right basilar atelectasis is noted, but the right lung is otherwise gr ossly clear. No significant pneumothorax. Impression: Retrocardiac opacity suggesting atelectasis, infiltrate, and/or small effusion. Cardiomegaly without overt edema. Reported By:
[2017-12-21] MEDS ORDERED: D5 1/2 NS 1000 ML 1,000 ML IV ONE (04:22)
[2017-12-21 06:15] LABS: BILIRUBIN,URINE NEGATIVE (NEGATIVE); BLOOD/HEMOGLOBIN,URINE 1+ (NEGATIVE); GLUCOSE, URINE NEGATIVE (NEGATIVE); KETONES,URINE NEGATIVE (NEGATIVE); LEUKOCYTE ESTERASE ,URINE NEGATIVE (NEGATIVE); NITRITES,URINE NEGATIVE (NEGATIVE); PROTEIN,URINE 3+ (NEGATIVE); UROBILINOGEN,URINE NORMAL (NORMAL)
[2017-12-21 06:24] LABS: APPEARANCE,URINE HAZY (CLEAR); BACTERIA,URINE TRACE /HPF (NEGATIVE); COLOR,URINE YELLOW (YELLOW); MUCUS,URINE FEW /HPF (NEGATIVE); RBC,URINE 0-2 /HPF (NONE SEEN); SQUAMOUS EPITHELIAL CELL,UR RARE /HPF (NEGATIVE)
[2017-12-21] MEDS: D5 1/2 NS 1000 ML 1,000 ML IV SCH ×3 (07:37→16:47)
[2017-12-21] MEDS ORDERED: LEVAQUIN PREMIX IV 750 MG 750 MG/150 ML BAG IV ONE (07:37)
[2017-12-21] MEDS ORDERED: NORCO 5/325 MG TAB PO PRN (07:45)
[2017-12-21] MEDS ORDERED: COLACE CAP 100 MG PO PRN (07:45)
--- NOTE | 2017-12-21 07:49 | CT ---
HISTORY: Altered mental status. Unresponsive. Study: CT brain without contrast. Comparison: 11/18/2017. Technique: Multiple axial images of the brain were obtained from the skull base to the vertex without administra tion of IV contrast. Findings: No acute intraparenchymal hemorrhage or mass can be identified. No extra-axial fluid chase ections are seen. No alteration in the attenuation of the brain parenchyma can be identified to sugg est acute or subacute ischemic change. The ventricular system is symmetric and unchanged. The extra cranial structures are grossly unremarkable. IMPRESSION: No acute intracranial process. Reported By:
[2017-12-21] MEDS ORDERED: [UNRECOGNIZED DRUG - OTHER] PO SCH (09:00)
[2017-12-21] MEDS ORDERED: GLUCOTROL PO SCH (09:00)
[2017-12-21] MEDS ORDERED: LANTUS SC SCH ×2 (09:00→21:00)
[2017-12-21] MEDS ORDERED: CHOLECALCIFEROL PO SCH (09:00)
[2017-12-21] MEDS ORDERED: LEVAQUIN PREMIX IV 750 MG 750 MG/150 ML BAG IV SCH (09:00)
[2017-12-21 09:19] VITALS: BMI 27.6
[2017-12-21] MEDS ORDERED: GLUCOPHAGE ONE ×2 (09:55→20:27)
[2017-12-21] MEDS: ECOTRIN TAB 325 MG PO SCH (11:10)
[2017-12-21] MEDS: ZANTAC PO SCH ×2 (11:10→20:31)
[2017-12-21] MEDS: LOPRESSOR TAB 25 MG PO SCH ×2 (11:10→20:31)
[2017-12-21] MEDS: GLUCOPHAGE PO SCH ×2 (11:10→20:31)
[2017-12-21] MEDS: ZESTRIL TAB 5 MG PO SCH (11:11)
[2017-12-21] MEDS: PATIENT'S HOME MEDICATION (Precose 100 MG) PO SCH ×2 (11:47→16:49)
[2017-12-21] MEDS: NEURONTIN CAP 100 MG PO SCH ×2 (14:23→20:31)
[2017-12-21] MEDS: ACTOS PO SCH (14:23)
[2017-12-21] MEDS: VITAMIN D3 PO SCH (20:31)
[2017-12-21] MEDS: CRESTOR TAB 10 MG PO SCH (20:31)
[2017-12-22] MEDS: NEURONTIN CAP 100 MG PO SCH ×5 (00:07→21:53)
[2017-12-22] MEDS: PATIENT'S HOME MEDICATION (Precose 100 MG) PO SCH ×3 (06:30→17:43)
[2017-12-22] MEDS ORDERED: GLUCOPHAGE ONE ×3 (08:20→20:12)
[2017-12-22] MEDS: VITAMIN D3 PO SCH ×2 (09:03→20:38)
[2017-12-22] MEDS: GLUCOPHAGE PO SCH ×2 (09:04→20:38)
[2017-12-22] MEDS: ZANTAC PO SCH ×2 (09:04→20:39)
[2017-12-22] MEDS: ZESTRIL TAB 5 MG PO SCH (09:04)
[2017-12-22] MEDS: LOPRESSOR TAB 25 MG PO SCH ×2 (09:04→20:38)
[2017-12-22] MEDS: ECOTRIN TAB 325 MG PO SCH (09:05)
[2017-12-22] MEDS: ACTOS PO SCH (09:05)
[2017-12-22] MEDS ORDERED: LR 1000 ML IV 1,000 ML IV SCH (10:00)
[2017-12-22] MEDS: CRESTOR TAB 10 MG PO SCH (20:38)
[2017-12-23] MEDS: PATIENT'S HOME MEDICATION (Precose 100 MG) PO SCH (06:11)
[2017-12-23] MEDS: NEURONTIN CAP 100 MG PO SCH ×3 (06:11→20:55)
[2017-12-23] MEDS ORDERED: GLUCOPHAGE ONE ×2 (08:04→20:10)
[2017-12-23] MEDS: ACTOS PO SCH (08:40)
[2017-12-23] MEDS: ZESTRIL TAB 5 MG PO SCH (08:40)
[2017-12-23] MEDS: ECOTRIN TAB 325 MG PO SCH (08:40)
[2017-12-23] MEDS: ZANTAC PO SCH ×2 (08:40→20:55)
[2017-12-23] MEDS: GLUCOPHAGE PO SCH ×2 (08:40→20:55)
[2017-12-23] MEDS: LOPRESSOR TAB 25 MG PO SCH ×2 (08:40→20:55)
[2017-12-23] MEDS: VITAMIN D3 PO SCH ×2 (08:40→20:55)
[2017-12-23] MEDS: CRESTOR TAB 10 MG PO SCH (20:55)
[2017-12-24] MEDS ORDERED: GLUCOPHAGE ONE ×2 (07:55→19:57)
[2017-12-24] MEDS: ZANTAC PO SCH ×2 (08:06→20:50)
[2017-12-24] MEDS: ZESTRIL TAB 5 MG PO SCH (08:06)
[2017-12-24] MEDS: ACTOS PO SCH (08:06)
[2017-12-24] MEDS: LOPRESSOR TAB 25 MG PO SCH ×2 (08:06→20:52)
[2017-12-24] MEDS: ECOTRIN TAB 325 MG PO SCH (08:06)
[2017-12-24] MEDS: GLUCOPHAGE PO SCH ×2 (08:06→20:51)
[2017-12-24] MEDS: VITAMIN D3 PO SCH ×2 (08:07→20:51)
[2017-12-24] MEDS: NEURONTIN CAP 100 MG PO SCH ×3 (12:59→22:47)
[2017-12-24] MEDS: CRESTOR TAB 10 MG PO SCH (21:13)
[2017-12-25] MEDS: NEURONTIN CAP 100 MG PO SCH (06:16)
[2017-12-25] MEDS ORDERED: GLUCOPHAGE ONE (07:46)
[2017-12-25] MEDS: ECOTRIN TAB 325 MG PO SCH (08:02)
[2017-12-25] MEDS: ACTOS PO SCH (08:02)
[2017-12-25] MEDS: ZESTRIL TAB 5 MG PO SCH (08:02)
[2017-12-25] MEDS: VITAMIN D3 PO SCH (08:02)
[2017-12-25] MEDS: GLUCOPHAGE PO SCH (08:02)
[2017-12-25] MEDS: LOPRESSOR TAB 25 MG PO SCH (08:02)
[2017-12-25] MEDS: ZANTAC PO SCH (08:02)
[2017-12-25 09:10] VITALS: BP 118/67
== END 2017-12-25 11:34 | disposition home health service (06) | DRG 639 ==
LOC: MED/SURG 00:07 → ER 00:07 → MED/SURG 08:24
PROVIDERS: ADMIT Obstetrics & Gynecology Obstetrics; ATTEND Obstetrics & Gynecology Obstetrics
DX: R91.8 Other nonspecific abnormal finding of lung field; E11.649 Type 2 diabetes mellitus with hypoglycemia without coma; R26.89 Other abnormalities of gait and mobility; R41.82 Altered mental status, unspecified; I51.7 Cardiomegaly
CPT/HCPCS: 36415; 70450; 71010; 71045; 80053; 81001; 85025; 96365; 96374; 97110; 97116; 97163; 97165; 97535; 99283; 99284; A4222; G0378; J1956; J7120; S5010

== ENCOUNTER 2018-12-25 19:40 | Inpatient (IN) ==
--- NOTE | 2018-12-25 20:13 | DR.ABDMALE ---
HPI Time seen Time Seen by Provider: 12/25/18 19:57 PCP Primary Care Physician: /va HPI comment HPI Comment: PATIENT IS 73YR OLD WHITE MALE WITH RIGHT SIDED ABDOMINAL PAIN WITH NAUSEA AND VOMITING AND DIARRHES TIMES 4 DAYS. PATIRNT IS RUNNING FEVER BUT NO DYSURIA. PAIN IS 2 /10 CURRENTLY BUT GO UP TO 8/10. IT IS SHARP PAIN THAT RADIATES TO RIGHT FLANK AREA. NO HISTORY OF PREVIOUS SIMILAR PAIN. PATIENT IS NOT HOLDING DOWN FLUIDS. Complaint Chief Complaint Doctors Comments: RIGHT SIDED ABDOMINAL PAIN, NAUSEA, VOMITING AND DIARRHEA TIMES 4 DAYS. Chief Complaint:: right sided abd pain, n/v/d Reviewed Nurses Notes Review: Yes Source History provided by:: PATIENT AND EMS, Mode of arrival Mode of Arrival: EMS Timing Onset of Chief Complaint: 12/21/18 Came on: Suddenly Duration Duration: Constant Duration: Days Location Location: RUQ and RLQ Severity Severity: Moderate Quality Quality: Sharp Context Onset: Suddenly History of: None Modifying factors Worsening Factors: Movement Improving Factors: Lying Still Associated signs and symptoms Associated Signs and Symptoms: Nausea, Vomiting and Diarrhea PMH PMH Past Medical History: Yes Past Medical History: Diabetes and Hypertension Past Surgical History: Yes Surgical History: Appendectomy and CABG/Valve Surgery Past Surgical History Comment: bypass(4) Family History History of Family Medical Conditions: Yes Family Medical History: Diabetes Mellitus, Cancer and Coronary Artery Disease Social History Does patient currently use any type of tobacco product: No Have you used tobacco products in the last 12 months: No Type of Tobacco Use: None Does any household member use tobacco: No Alcohol Use: None Do you use any recreational Drugs:: No Lives With: Family Lives Where: Home infectious screening Have you traveled outside the country in the last 6 months?: No Isolation: Standard ROS Review of Systems Constitutional: No Symptoms Reported, See HPI, Fever, Weakness and Fatigue Eyes: No Symptoms Reported and See HPI ENTM: No Symptoms Reported and See HPI Respiratoy: No Symptoms Reported and See HPI; negative Short of Breath and Wheezing Cardiovascular: No Symptoms Reported and See HPI; negative Chest Pain Gastrointestinal/Abdominal: See HPI, Abdominal Pain, Diarrhea, Nausea and Vomiting Genitourinary: No Symptoms Reported and See HPI; negative Dysuria, Frequency and Hematuria Neurological: No Symptoms Reported and See HPI; negative Headache, Weakness and Dizziness Musculoskeletal: See HPI, Back Pain and Muscle Pain Integumentary: No Symptoms Reported and See HPI; negative Change in Color, Rash and Juandice Hematologic/Lymphatic: No Symptoms Reported and See HPI; negative Easy Bleeding, Easy Bruising and Swollen Glands Endocrine: No Symptoms Reported and See HPI; negative Increased Thirst and Increased Urine Psychiatric: No Symptoms Reported and See HPI All Other Systems: Reviewed and Negative PE Vital Signs Vital Signs: Temp Pulse Resp BP BP BP Pulse Ox 12/26/18 01:31 81 27 H 185/85 12/26/18 01:30 80 24 12/26/18 01:15 72 17 144/86 12/26/18 01:00 69 18 124/67 94 L 12/26/18 00:45 70 16 124/64 94 L 12/26/18 00:30 70 16 130/70 94 L 12/26/18 00:15 74 20 144/79 92 L 12/26/18 00:00 69 18 136/71 93 L 12/25/18 23:46 73 16 144/72 94 L 12/25/18 23:45 73 16 94 L 12/25/18 23:31 74 16 109/62 90 L 12/25/18 23:30 98.0 F 75 89 L 12/25/18 23:15 77 92 L 12/25/18 23:00 77 94 L 12/25/18 22:46 81 85 L 12/25/18 22:30 140/79 12/25/18 22:15 142/73 12/25/18 22:00 146/78 12/25/18 21:45 139/73 12/25/18 21:30 117/70 12/25/18 21:15 120/68 12/25/18 21:03 76 12/25/18 21:00 70 17 122/62 12/25/18 20:59 70 23 12/25/18 20:45 72 20 136/73 12/25/18 20:30 71 16 120/69 12/25/18 20:15 74 14 122/67 94 L 12/25/18 20:00 74 16 116/67 94 L 12/25/18 19:57 75 17 95 12/25/18 19:42 99.0 F 77 18 129/65 91 L 12/25/17 08:00 118/67 118/67 12/23/17 20:00 129/71 General Limitations: No Limitations General Appearance: Alert and In No Apparent Distress Head Head Exam: Normal Inspection and Atraumatic Eyes Eye exam: Normal Appearance and PERRL; negative Scleral Icterus and Conjunctival Injection ENT ENT Exam: Normal Exam, Normal Oropharynx, Normal External Ear Exam and TM's Normal Bilaterally Neck Neck Exam: Normal Inspection and Trachea Midline; negative Tenderness and Lymphadenopathy Chest Chest Inspection: Normal Inspection and Symmetric Chest Wall Rise; negative Tenderness Respiratory Respiratory Exam: Normal Lung Sounds Bilat; negative Accessory Muscle Use, Chest Wall Tenderness and Respiratory Distress Respiratory Exam: Bilateral: Rhonchi and Lower: Rhonchi Cardiovascular Cardiovascular Exam: Regular Rate, Normal Rhythm and Normal Heart Sounds; negative Systolic Murmur and Diastolic Murmur Abdominal Exam Abdominal Exam: Normal Bowel Sounds, Soft and Tenderness Abdominal Tenderness: Diffuse and Moderate Rectal Rectal Exam: Deferred Back Back Exam: Normal Inspection; negative Tenderness, (R) CVA Tenderness, (L) CVA Tenderness, Paraspinal Tenderness and Vertebral Tenderness Extremeties Extremities Exam: Normal Inspection Exam: Male: Deferred Neurologic Neurological Exam: Alert, Oriented X3 and CN II-XII Intact; negative Motor Sensory Deficit Psychiatric Psychiatric Exam: Normal Affect and Normal Mood Skin Skin Exam: Dry MDM Differential Diagnosis Differential Diagnosis: Appendicitis, Bowel Obstruction, Cholcystitis, Cholelethiasis, Diverticular disease, Gastritus/PUD, Gastroenteritis, Hernia, Inflammatory BD, Ischemic Bowel, Pancreatitis, Urinary tract infection and Urol ithiasis COURSE Treatment Treatment: SEE ORDERS. Consultation Consultation Comments: DISCUSS PATIENT WITH DR. CABEZAS. WANT YARDAGE ESTIMATOR MEDICNE TO ADMIT PATIENT.KEEP PATIENT NPO. YARDAGE ESTIMATOR DR ANDUJAR. HE WILL ADMIT PATIENT. Education/Counseling Education/Counseling: Patient Educated On: Diagnosis ROR Labs Reviewed Laboratory Results Reviewed?: Yes Result Diagrams: 12/30/18 04:15 12/30/18 04:15 Laboratory: 12/25/18 23:26 Blood Blood Culture - Final 12/25/18 23:20 Blood Blood Culture - Final WBC 14.0 X10^3/uL (3.6-10.0) H 12/25/18 20:27 RBC 4.90 X10^6/uL (4.7-6.0) 12/25/18 20:27 Hgb 14.8 g/dL (13.5-18.0) D 12/25/18 20:27 Hct 42.1 % (42.0-54.0) 12/25/18: MCV 86.0 fL (80.0-100.0) 12/25/18: MCH 30.2 pg (27.0-34.0) 12/25/18: MCHC 35.2 g/dL (33.0-35.0) H 12/25/18: RDW 14.0 % (11.6-16.5) 12/25/18 Plt Count 215 X10^3/uL (150.0-450.0) 12/25/18 MPV 6.7 fL (7.4-11.0) L 12/25/18: Neut % (Auto) 78.0 % (42.0-75.0) H 12/25/18: Lymph % (Auto) 12.7 % (21.0-51.0) L 12/25/18: [place] % (Auto) 7.9 % (0.0-13.0) 12/25/18: Eos % (Auto) 1.1 % (0.9-2.9) 12/25/18: Baso % (Auto) 0.3 % (0.2-1.0) 12/25/18 Neut # (Auto) 10.9 x10^3/uL (2.2-4.8) H 12/25/18: Lymph # (Auto) 1.8 X10^3/uL (1.3-2.9) 12/25/18 [place] # (Auto) 1.1 x10^3/uL (0.3-0.8) H 12/25/18: Eos # (Auto) 0.2 x10^3/uL (0.0-0.2) 12/25/18 Baso # (Auto) 0.0 X10^3/uL (0.0-0.1) 12/25/18 Absolute Nucleated RBC 0.0 /100WBC 12/25/18 Sodium 134 mmol/L (136-145) L 12/25/18 Corrected Sodium TNP 09/20/19 20:27 Potassium 2.9 mmol/L (3.5-5.1) L* 12/25/18 20:27 Chloride 96 mmol/L (98-107) L 12/25/18 20:27 Carbon Dioxide 27.2 mmol/L (21-32) 12/25/18 20:27 BUN 22 mg/dL (7-18) H 12/25/18 20:27 Creatinine 1.36 mg/dL (0.70-1.30) H 12/25/18 20:27 Est GFR (MDRD) Af Amer > 60 (>60) 12/25/18 20:27 Est GFR (MDRD) Non-Af 55 (>60) L 12/25/18 20:27 Glucose 51 mg/dL (65-99) L 12/25/18 23:20 POC Glucose (mg/dL) 106 mg/dL (65-99) H 12/26/18 01:22 Lactic Acid 0.8 mmol/L (0.4-2.0) 12/25/18 23:26 Calcium 8.5 mg/dL (8.5-10.1) 12/25/18 20:27 Corrected Calcium 9.6 mg/dL (8.5-10.1) 12/25/18 20:27 Total Bilirubin 0.70 mg/dL (0.2-1.0) 12/25/18 20:27 AST 29 Units/L (15-37) 12/25/18 20:27 ALT 36 Units/L (12-78) 12/25/18 20:27 Alkaline Phosphatase 93 Units/L (46-116) 12/25/18 20:27 Total Protein 6.9 g/dL (6.4-8.2) 12/25/18 20:27 Albumin 2.6 g/dL (3.4-5.0) L 12/25/18 20:27 Globulin 4.3 g/dL (2.5-4.5) 12/25/18 20:27 Albumin/Globulin Ratio 0.6 Ratio (1.1-2.1) L 12/25/18 20:27 Amylase 69 Units/L (25-115) 12/25/18 20:27 Lipase 281 Units/L (73-393) 12/25/18 20:27 XRAY XRAY Interpreted by: Radiologist XRAY Findings: REPORT NOTED AND DISCUSSED WITH PATIENT. Opioid Opioid Risk Tool Age (Theo box if 16-45): No History of Preadolescent Sexual Abuse: No Total: 0 Total Score Risk Category: Low Risk Copyright: Rene COTA predicting aberrant behaviors Diagnosis Discharge Problem: Acute calculous cholecystitis Abdominal pain Qualifiers: Abdominal location: generalized Qualified Code(s): R10.84 - Generalized a bdominal pain Instructions Instructions: Laparoscopic Cholecystectomy, Care After Dumping Syndrome Diet Type 2 Diabetes Mellitus, Self Care, Adult, [id number] Hypertension, [id number] Gallbladder Eating Plan Dumping Syndrome Forms: Patient Portal
[2018-12-25] MEDS ORDERED: ZOFRAN INJ 4 MG VIAL IVP ONE (20:14)
[2018-12-25] MEDS ORDERED: ZOFRAN INJ 4 MG VIAL ONE (20:21)
[2018-12-25] MEDS: NS 1000 ML 1,000 ML IV SCH (20:24)
[2018-12-25 20:41] LABS: BASOPHILS % (AUTO) 0.3 % (0.2-1.0); EOSINOPHILS # (AUTO) 0.2 x10^3/uL (0.0-0.2); EOSINOPHILS % (AUTO) 1.1 % (0.9-2.9); HEMATOCRIT 42.1 % (42.0-54.0); LYMPHOCYTES # (AUTO) 1.8 X10^3/uL (1.3-2.9); LYMPHOCYTES % (AUTO) 12.7 % (21.0-51.0); MEAN CORPUSCULAR HEMOGLOBIN 30.2 pg (27.0-34.0); MEAN CORPUSCULAR HGB CONC 35.2 g/dL (33.0-35.0); MEAN PLATELET VOLUME 6.7 fL (7.4-11.0); MONOCYTES # (AUTO) 1.1 x10^3/uL (0.3-0.8); MONOCYTES % (AUTO) 7.9 % (0.0-13.0); NEUTROPHILS # (AUTO) 10.9 x10^3/uL (2.2-4.8); PLATELET COUNT 215 X10^3/uL (150.0-450.0)
[2018-12-25 20:43] LABS: BLOOD UREA NITROGEN 22 mg/dL (7-18); CALCIUM 8.5 mg/dL (8.5-10.1); CARBON DIOXIDE 27.2 mmol/L (21-32); CHLORIDE 96 mmol/L (98-107); CREATININE 1.36 mg/dL (0.70-1.30); SODIUM 134 mmol/L (136-145); eGFR NON BLACK RACES 55 (>60)
[2018-12-25 20:44] LABS: HEMOGLOBIN 14.8 g/dL (13.5-18.0)
[2018-12-25 20:47] LABS: ALANINE AMINOTRANSFERASE 36 Units/L (12-78); ALBUMIN 2.6 g/dL (3.4-5.0); ALKALINE PHOSPHATASE 93 Units/L (46-116); AMYLASE 69 Units/L (25-115); ASPARTATE AMINO TRANSFERASE 29 Units/L (15-37); COR CA(FOR HYPOALB) 9.6 mg/dL (8.5-10.1); LIPASE 281 Units/L (73-393); TOTAL PROTEIN 6.9 g/dL (6.4-8.2)
--- NOTE | 2018-12-25 22:56 | CT ---
CT abdomen and pelvis with contrast Indication: Right-sided abdominal pain, nausea, vomiting Comparison: 10/23/2011 Technique: CT images of the abdomen and pelvis were obtained with IV and oral contrast. Automatic exposure control was utilized. Findings: There is chronic appearing T12 compression deformity. Mild lumbar spondylosis. No definite acute osseous abnormality. The lower chest demonstrates cardiomegaly with severe coronary artery disease. Bibasilar atelectasis. There is cholelithiasis with gallbladder distention and marked pericholecystic edema. No organizing collection can be identified. The liver and spleen enhance normally. The stomach, pancreas, adrenals, and kidneys demonstrate no significant abnormality. There is a tiny nonobstructing left lower pole renal stone. Colonic diverticulosis is noted. There is thickening with adjacent fat stranding involving a short segment of the proximal sigmoid. No pericolonic collection or gross free air. No significant small bowel dilatation. Prostate is enlarged. The urinary bladder is unremarkable. Impression: Cholelithiasis with findings of acute cholecystitis. Associated gallbladder perforation cannot be excluded given degree of pericholecystic edema. Acute sigmoid diverticulitis, without complicating features. Nonobstructing left nephrolithiasis, prostate enlargement. Reported By:
[2018-12-25] MEDS ORDERED: FLAGYL IV PREMIX 500 MG BAG 500 MG/100 ML BAG IV ONE ×2 (23:11→23:22)
[2018-12-25] MEDS ORDERED: D50W ABBOJECT SYR IV ONE (23:22)
[2018-12-25] MEDS ORDERED: D50W ABBOJECT SYR ONE (23:22)
[2018-12-25] MEDS ORDERED: NS 1000 ML 1,000 ML IV ONE (23:45)
[2018-12-25] MEDS ORDERED: D5 NS + KCL 20 MEQ/L 1,000 ML IV SCH (23:45)
[2018-12-26] MEDS ORDERED: PEPCID 20 MG IV PREMIX* 20 MG/50 ML BAG IV PRN (01:49)
[2018-12-26] MEDS ORDERED: ZOFRAN INJ 4 MG VIAL IVP PRN ×2 (01:49→14:15)
[2018-12-26] MEDS ORDERED: MORPHINE SULFATE INJ 2 MG INJ IVP PRN (01:49)
[2018-12-26] MEDS ORDERED: NS + KCL 20 MEQ/L 1,000 ML IV ONE (02:13)
[2018-12-26] MEDS ORDERED: ZOFRAN INJ 4 MG VIAL IVP ONE (02:29)
[2018-12-26] MEDS ORDERED: NS + KCL 20 MEQ/L 1,000 ML IV SCH (03:00)
[2018-12-26 05:32] LABS: BASOPHILS % (AUTO) 0.2 % (0.2-1.0); EOSINOPHILS # (AUTO) 0.1 x10^3/uL (0.0-0.2); EOSINOPHILS % (AUTO) 1.1 % (0.9-2.9); HEMATOCRIT 40.4 % (42.0-54.0); HEMOGLOBIN 14.1 g/dL (13.5-18.0); LYMPHOCYTES # (AUTO) 1.3 X10^3/uL (1.3-2.9); LYMPHOCYTES % (AUTO) 10.6 % (21.0-51.0); MEAN CORPUSCULAR HEMOGLOBIN 30.2 pg (27.0-34.0); MEAN CORPUSCULAR VOLUME 86.4 fL (80.0-100.0); MEAN PLATELET VOLUME 7.1 fL (7.4-11.0); MONOCYTES # (AUTO) 0.9 x10^3/uL (0.3-0.8); MONOCYTES % (AUTO) 7.4 % (0.0-13.0); NEUTROPHILS # (AUTO) 9.5 x10^3/uL (2.2-4.8); NEUTROPHILS % (AUTO) 80.7 % (42.0-75.0); PLATELET COUNT 214 X10^3/uL (150.0-450.0); RED BLOOD COUNT 4.67 X10^6/uL (4.7-6.0); RED CELL DISTRIBUTION WIDTH 13.9 % (11.6-16.5); WHITE BLOOD COUNT 11.8 X10^3/uL (3.6-10.0)
[2018-12-26 05:52] LABS: ALANINE AMINOTRANSFERASE 30 Units/L (12-78); ALBUMIN 2.5 g/dL (3.4-5.0); ALKALINE PHOSPHATASE 92 Units/L (46-116); AMYLASE 34 Units/L (25-115); ASPARTATE AMINO TRANSFERASE 26 Units/L (15-37); BLOOD UREA NITROGEN 19 mg/dL (7-18); CALCIUM 8.3 mg/dL (8.5-10.1); CARBON DIOXIDE 28.5 mmol/L (21-32); CHLORIDE 98 mmol/L (98-107); COR CA(FOR HYPOALB) 9.5 mg/dL (8.5-10.1); CREATININE 1.28 mg/dL (0.70-1.30); LIPASE 54 Units/L (73-393); SODIUM 134 mmol/L (136-145); TOTAL PROTEIN 6.5 g/dL (6.4-8.2); eGFR NON BLACK RACES 59 (>60)
[2018-12-26] MEDS: NS 1000 ML 1,000 ML IV SCH (06:37)
[2018-12-26] MEDS: MEFOXIN 1 G in NS 100 ML IV + SPIKE MINIBAG* 100 ML IV SCH ×3 (06:59→22:45)
[2018-12-26] MEDS ORDERED: K-DUR TAB 20 MEQ PO PRN (07:29)
[2018-12-26] MEDS ORDERED: MICRO K EXTEN CAP 10 MEQ PO PRN (07:29)
[2018-12-26] MEDS ORDERED: POTASSIUM CHL 40 MEQ/NS 0.45% 500 ML IV PRN (07:29)
[2018-12-26] MEDS ORDERED: POTASSIUM CHLORIDE LIQ 20 MEQ UDC PO PRN (07:29)
[2018-12-26] MEDS ORDERED: KLOR-CON PO PRN (07:29)
[2018-12-26] MEDS ORDERED: POTASSIUM CHL 60 MEQ/NS 0.45% 500 ML IV PRN (07:29)
[2018-12-26] MEDS ORDERED: D50W ABBOJECT SYR IV ONE (07:49)
[2018-12-26] MEDS: K-RIDER 10 MEQ/NS 100 ML 10 MEQ/100 ML BAG IV PRN ×6 (08:57→20:00)
[2018-12-26] MEDS ORDERED: FLAGYL 50 MG/1 ML - 120ML COMPOUNDED SUSP. PO SCH (09:00)
[2018-12-26] MEDS ORDERED: ZESTRIL TAB 5 MG PO SCH (09:30)
[2018-12-26] MEDS ORDERED: NS IRRIGATION 3000 ML ONE (09:32)
[2018-12-26] MEDS ORDERED: D5 NS 1000 ML 1,000 ML IV ONE (09:58)
[2018-12-26] MEDS ORDERED: NS 250 ML IV 250 ML IV ONE (09:59)
[2018-12-26] MEDS ORDERED: LOPRESSOR TAB 25 MG PO SCH (10:00)
[2018-12-26] MEDS ORDERED: D5 NS 1000 ML 1,000 ML IV SCH (10:00)
--- NOTE | 2018-12-26 11:31 | RAD ---
Examination: Portable AP chest History: Preop Comparison 12/21/2017 Findings: Continued cardiomegaly with sternal wires. Minimal subsegmental atelectasis right base. Ill defined retrocardiac density in the left lower lung is suggested although there is no definite consolidation or large pleural effusion. The upper lungs are clear. Impression: Stable cardiomegaly with postsurgical findings. Ill-defined retrocardiac density is similar to prior and may represent chronic scarring or a more acute process. Correlate clinically with follow-up, standard PA and lateral views if possible. Reported By:
[2018-12-26] MEDS ORDERED: FENTANYL INJ 250 mcg ONE (11:47)
[2018-12-26] MEDS ORDERED: LEVAQUIN PREMIX IV 500 MG 500 MG/100 ML BAG IV ONE (12:14)
[2018-12-26 12:43] LABS: BILIRUBIN,URINE NEGATIVE (NEGATIVE); BLOOD/HEMOGLOBIN,URINE 2+ (NEGATIVE); GLUCOSE, URINE NEGATIVE (NEGATIVE); KETONES,URINE 1+ (NEGATIVE); LEUKOCYTE ESTERASE ,URINE 1+ (NEGATIVE); NITRITES,URINE POSITIVE (NEGATIVE); PROTEIN,URINE 3+ (NEGATIVE); UROBILINOGEN,URINE NORMAL (NORMAL)
[2018-12-26] MEDS ORDERED: BACTROBAN TOPICAL OINT ONE (12:45)
[2018-12-26 13:02] LABS: APPEARANCE,URINE HAZY (CLEAR); BACTERIA,URINE 1+ /HPF (NEGATIVE); COLOR,URINE DARK YELLOW (YELLOW); RBC,URINE 0-2 /HPF (0-3); SQUAMOUS EPITHELIAL CELL,UR RARE /HPF (NEGATIVE)
[2018-12-26] MEDS ORDERED: PHENERGAN INJ 25 MG IM PRN (14:15)
[2018-12-26] MEDS ORDERED: REGLAN INJ 10 MG VIAL IVP PRN (14:15)
[2018-12-26] MEDS ORDERED: BENADRYL INJ 50 MG VIAL IVP PRN (14:15)
[2018-12-26] MEDS: DILAUDID INJ IVP PRN ×3 (14:16→14:36)
[2018-12-26] MEDS ORDERED: DILAUDID INJ IVP PRN (14:22)
--- NOTE | 2018-12-26 14:26 | OR.IMMED ---
Immediate Post-Op Note - Immediate Post-Op Note Pre-Op Diagnosis: acute cholecystitis , possible perforation . Post-Op Diagnosis: acute gangrenous cholecystitis with dense adhesions Procedure: laparoscopy , lysis of adhesions , lap josiah and drainage Surgeon/Farm Reporter: Mayra. Specimens Removed: GB with contents. Drains: Robert Adamson Condition: Stable
[2018-12-26] MEDS ORDERED: NS 1000 ML 1,000 ML ONE (14:34)
[2018-12-26] MEDS: FLAGYL IV PREMIX 500 MG BAG IV SCH ×2 (15:26→20:55)
[2018-12-26] MEDS ORDERED: EPHEDRINE SULFATE INJ ONE (15:35)
[2018-12-26] MEDS ORDERED: NORCURON INJ 10 MG VIAL ONE (15:35)
[2018-12-26] MEDS ORDERED: VERSED ONE (15:35)
[2018-12-26] MEDS ORDERED: SUPRANE ONE (15:35)
[2018-12-26] MEDS ORDERED: ROBINUL ONE (15:35)
[2018-12-26] MEDS ORDERED: QUELICIN (OR ANECTINE) ONE (15:35)
[2018-12-26] MEDS ORDERED: DIPRIVAN VIAL ONE (15:35)
[2018-12-26] MEDS ORDERED: ZOFRAN INJ 4 MG VIAL ONE (15:35)
[2018-12-26] MEDS ORDERED: NEOSTIGMINE INJ ONE (15:35)
[2018-12-26] MEDS: D5 1/2 NS 1000 ML 1,000 ML IV SCH (17:49)
[2018-12-27] MEDS: FLAGYL IV PREMIX 500 MG BAG IV SCH (03:55)
[2018-12-27 05:22] LABS: BASOPHILS % (AUTO) 0.3 % (0.2-1.0); EOSINOPHILS # (AUTO) 0.2 x10^3/uL (0.0-0.2); EOSINOPHILS % (AUTO) 2.2 % (0.9-2.9); HEMATOCRIT 38.8 % (42.0-54.0); HEMOGLOBIN 13.6 g/dL (13.5-18.0); LYMPHOCYTES % (AUTO) 11.9 % (21.0-51.0); MEAN CORPUSCULAR HEMOGLOBIN 30.4 pg (27.0-34.0); MEAN CORPUSCULAR HGB CONC 35.1 g/dL (33.0-35.0); MEAN CORPUSCULAR VOLUME 86.6 fL (80.0-100.0); MONOCYTES # (AUTO) 0.6 x10^3/uL (0.3-0.8); MONOCYTES % (AUTO) 7.2 % (0.0-13.0); NEUTROPHILS # (AUTO) 6.6 x10^3/uL (2.2-4.8); NEUTROPHILS % (AUTO) 78.4 % (42.0-75.0); PLATELET COUNT 208 X10^3/uL (150.0-450.0); RED BLOOD COUNT 4.48 X10^6/uL (4.7-6.0); RED CELL DISTRIBUTION WIDTH 13.7 % (11.6-16.5); WHITE BLOOD COUNT 8.4 X10^3/uL (3.6-10.0)
[2018-12-27] MEDS: D5 1/2 NS 1000 ML 1,000 ML IV SCH ×3 (05:30→06:15)
[2018-12-27] MEDS: MEFOXIN 1 G in NS 100 ML IV + SPIKE MINIBAG* 100 ML IV SCH ×3 (05:30→21:14)
[2018-12-27 05:46] LABS: ALANINE AMINOTRANSFERASE 27 Units/L (12-78); ALBUMIN 2.3 g/dL (3.4-5.0); ALKALINE PHOSPHATASE 83 Units/L (46-116); ASPARTATE AMINO TRANSFERASE 32 Units/L (15-37); BLOOD UREA NITROGEN 11 mg/dL (7-18); CALCIUM 7.9 mg/dL (8.5-10.1); CARBON DIOXIDE 25.1 mmol/L (21-32); CHLORIDE 100 mmol/L (98-107); COR CA(FOR HYPOALB) 9.3 mg/dL (8.5-10.1); COR NA(FOR HYPERGLY) 135 mmol/L (136-145); CREATININE 0.99 mg/dL (0.70-1.30); SODIUM 134 mmol/L (136-145); TOTAL PROTEIN 6.3 g/dL (6.4-8.2); eGFR NON BLACK RACES > 60 (>60)
[2018-12-27 08:17] VITALS: BMI 27.6
[2018-12-27] MEDS ORDERED: D5 1/2 NS 1000 ML 0 ML IV ONE (08:51)
[2018-12-27] MEDS: LEVAQUIN PREMIX IV 500 MG 500 MG/100 ML BAG IV SCH (08:56)
[2018-12-27] MEDS: LOVENOX INJ 40 MG SYR SC SCH (08:57)
[2018-12-27] MEDS ORDERED: D5 1/2 NS 1000 ML 1,000 ML IV SCH (09:00)
--- NOTE | 2018-12-27 11:09 | DR.PROGNOT ---
Hospital Progress Notes - Progress Note for Day of: Progress Note Date: 12/27/18 - Chief Complaint Chief Complaint: feeling better with less abdominal pain .mild drainage in RACHELE . afebrile , - Past Medical Family Social History Past Med/Fam/Surg Hx: No changes since H&P Allergies: Allergies Penicillins Allergy (Mild, Verified 12/25/18 19:56) Sulfa (Sulfonamide Antibiotics) [SULFA] Allergy (Mild, Verified 12/25/18 19:56) - Review Of Systems ROS: No change since H&P - Vital Signs Vital Signs: Temperature 97.9 F Pulse Rate [Brachial] 77 Pulse Rate 74 Respiratory Rate 16 Blood Pressure [Left Arm] 129/65 Blood Pressure [Right Arm] 118/67 Blood Pressure 159/79 O2 Sat by Pulse Oximetry 97 - Physical Exam Oriented: Normal, Person Ear: negative: Normal Nose: Normal, Blood Throat: negative: Normal Respiratory: Normal Cardiovascular: Normal : Normal GI:Auscultation: Normal GI: Tenderness: Diffuse Skin: Normal Musculoskeletal: Normal Psychiatric: negative: Normal Mood Description: Calm Speech Pattern: Delayed - Laboratory and Diagnostics Result Diagrams: 12/27/18 04:26 12/27/18 04:26 Labs: 12/25/18 23:26 Blood Blood Culture - Preliminary 12/25/18 23:20 Blood Blood Culture - Preliminary 12/26/18 12:00 Urine,Catheterized Urine Culture - Preliminary Laboratory WBC 8.4 X10^3/uL (3.6-10.0) 12/27/18 04:26 RBC 4.48 X10^6/uL (4.7-6.0) L 12/27/18 04:26 Hgb 13.6 g/dL (13.5-18.0) 12/27/18 04:26 Hct 38.8 % (42.0-54.0) L 12/27/18 04:26 MCV 86.6 fL (80.0-100.0) 12/27/18 04:26 MCH 30.4 pg (27.0-34.0) 12/27/18 04:26 MCHC 35.1 g/dL (33.0-35.0) H 12/27/18 04:26 RDW 13.7 % (11.6-16.5) 12/27/18 04:26 Plt Count 208 X10^3/uL (150.0-450.0) 12/27/18 04:26 MPV 7.0 fL (7.4-11.0) L 12/27/18 04:26 Neut % (Auto) 78.4 % (42.0-75.0) H 12/27/18 04:26 Lymph % (Auto) 11.9 % (21.0-51.0) L 12/27/18 04:26 [place] % (Auto) 7.2 % (0.0-13.0) 12/27/18 04:26 Eos % (Auto) 2.2 % (0.9-2.9) 12/27/18 04:26 Baso % (Auto) 0.3 % (0.2-1.0) 12/27/18 04:26 Neut # (Auto) 6.6 x10^3/uL (2.2-4.8) H 12/27/18 04:26 Lymph # (Auto) 1.0 X10^3/uL (1.3-2.9) L 12/27/18 04:26 [place] # (Auto) 0.6 x10^3/uL (0.3-0.8) 12/27/18 04:26 Eos # (Auto) 0.2 x10^3/uL (0.0-0.2) 12/27/18 04:26 Baso # (Auto) 0.0 X10^3/uL (0.0-0.1) 12/27/18 04:26 Absolute Nucleated RBC 0.1 /100WBC 12/27/18 04:26 Sodium 134 mmol/L (136-145) L 12/27/18 04:26 Corrected Sodium 135 mmol/L (136-145) L 12/27/18 04:26 Potassium 3.6 mmol/L (3.5-5.1) 12/27/18 04:26 Chloride 100 mmol/L (98-107) 12/27/18 04:26 Carbon Dioxide 25.1 mmol/L (21-32) 12/27/18 04:26 BUN 11 mg/dL (7-18) 12/27/18 04:26 Creatinine 0.99 mg/dL (0.70-1.30) 12/27/18 04:26 Est GFR (MDRD) Af Amer > 60 (>60) 12/27/18 04:26 Est GFR (MDRD) Non-Af > 60 (>60) 12/27/18 04:26 Glucose 125 mg/dL (65-99) H 12/27/18 04:26 POC Glucose (mg/dL) 154 mg/dL (65-99) H 12/27/18 09:55 Lactic Acid 0.8 mmol/L (0.4-2.0) 12/25/18 23:26 Calcium 7.9 mg/dL (8.5-10.1) L 12/27/18 04:26 Corrected Calcium 9.3 mg/dL (8.5-10.1) 12/27/18 04:26 Magnesium 2.0 mg/dL (1.7-2.9) 12/26/18 04:26 Total Bilirubin 0.40 mg/dL (0.2-1.0) 12/27/18 04:26 AST 32 Units/L (15-37) 12/27/18 04:26 ALT 27 Units/L (12-78) 12/27/18 04:26 Alkaline Phosphatase 83 Units/L (46-116) 12/27/18 04:26 Total Protein 6.3 g/dL (6.4-8.2) L 12/27/18 04:26 Albumin 2.3 g/dL (3.4-5.0) L 12/27/18 04:26 Globulin 4.0 g/dL (2.5-4.5) 12/27/18 04:26 Albumin/Globulin Ratio 0.6 Ratio (1.1-2.1) L 12/27/18 04:26 Amylase 34 Units/L (25-115) 12/26/18 04:26 Lipase 54 Units/L (73-393) L 12/26/18 04:26 Specimen Type Catherized urine 12/26/18 12:00 Urine Color Dark yellow (YELLOW) 12/26/18 12:00 Urine Appearance Hazy (CLEAR) 12/26/18 12:00 Urine pH 5.0 (5.0 - 8.0) 12/26/18 12:00 Ur Specific [place] 1.015 (1.000-1.030) 12/26/18 12:00 Urine Protein 3+ (NEGATIVE) 12/26/18 12:00 Urine Glucose (UA) Negative (NEGATIVE) 12/26/18 12:00 Urine Ketones 1+ (NEGATIVE) 12/26/18 12:00 Urine Occult Blood 2+ (NEGATIVE) 12/26/18 12:00 Urine Nitrite Positive (NEGATIVE) 12/26/18 12:00 Urine Bilirubin Negative (NEGATIVE) 12/26/18 12:00 Urine Urobilinogen Normal (NORMAL) 12/26/18 12:00 Ur Leukocyte Esterase 1+ (NEGATIVE) 12/26/18 12:00 Urine RBC 0-2 /HPF (0-3) 12/26/18 12:00 Urine WBC 3-5 /HPF (0-5) 12/26/18 12:00 Ur Squamous Epith Cells Rare /HPF (NEGATIVE) 12/26/18 12:00 Urine Bacteria 1+ /HPF (NEGATIVE) 12/26/18 12:00 Ur Culture Indicated? Yes/culture set up 12/26/18 12:00 Tissue Pathology To follow 12/26/18 15:24 - Assessment and Plan 1: s/p lap josiah for gangrenous cholecystitis.. DM. obesity ... to advance diet , same IV ATB , DVT prophylaxis .
[2018-12-27] MEDS ORDERED: ZOFRAN INJ 4 MG VIAL IVP PRN (13:25)
[2018-12-27] MEDS ORDERED: LOPRESSOR TAB 50 MG PO SCH (14:00)
[2018-12-27] MEDS: FLAGYL IV PREMIX 500 MG BAG 500 MG/100 ML BAG IV SCH ×2 (15:10→23:00)
[2018-12-27] MEDS: ACTOS PO SCH (15:11)
[2018-12-27] MEDS: ZESTRIL TAB 10 MG PO SCH (15:12)
[2018-12-27] MEDS ORDERED: LR 1000 ML IV 1,000 ML IV ONE (15:34)
[2018-12-27] MEDS: LR 1000 ML IV 1,000 ML IV SCH (16:37)
[2018-12-27] MEDS: LOPRESSOR INJ 5 MG AMP IVP PRN (21:53)
[2018-12-27] MEDS ORDERED: PHENERGAN INJ 25 MG IM ONE (23:22)
[2018-12-27] MEDS: PHENERGAN INJ 25 MG IM PRN (23:40)
[2018-12-28] MEDS: K-RIDER 10 MEQ/NS 100 ML 10 MEQ/100 ML BAG IV PRN ×2 (01:40→03:19)
[2018-12-28 04:38] LABS: BASOPHILS % (AUTO) 0.5 % (0.2-1.0); EOSINOPHILS # (AUTO) 0.1 x10^3/uL (0.0-0.2); EOSINOPHILS % (AUTO) 1.5 % (0.9-2.9); HEMATOCRIT 39.7 % (42.0-54.0); HEMOGLOBIN 13.9 g/dL (13.5-18.0); LYMPHOCYTES # (AUTO) 1.4 X10^3/uL (1.3-2.9); LYMPHOCYTES % (AUTO) 14.9 % (21.0-51.0); MEAN CORPUSCULAR HEMOGLOBIN 30.4 pg (27.0-34.0); MEAN CORPUSCULAR HGB CONC 34.9 g/dL (33.0-35.0); MEAN PLATELET VOLUME 6.7 fL (7.4-11.0); MONOCYTES # (AUTO) 0.7 x10^3/uL (0.3-0.8); MONOCYTES % (AUTO) 7.6 % (0.0-13.0); NEUTROPHILS # (AUTO) 7.2 x10^3/uL (2.2-4.8); NEUTROPHILS % (AUTO) 75.5 % (42.0-75.0); PLATELET COUNT 260 X10^3/uL (150.0-450.0); RED BLOOD COUNT 4.57 X10^6/uL (4.7-6.0); RED CELL DISTRIBUTION WIDTH 13.5 % (11.6-16.5); WHITE BLOOD COUNT 9.5 X10^3/uL (3.6-10.0)
[2018-12-28 04:50] LABS: ALANINE AMINOTRANSFERASE 24 Units/L (12-78); ALBUMIN 2.3 g/dL (3.4-5.0); ALKALINE PHOSPHATASE 74 Units/L (46-116); ASPARTATE AMINO TRANSFERASE 25 Units/L (15-37); BLOOD UREA NITROGEN 12 mg/dL (7-18); CALCIUM 8.4 mg/dL (8.5-10.1); CHLORIDE 98 mmol/L (98-107); COR CA(FOR HYPOALB) 9.8 mg/dL (8.5-10.1); COR NA(FOR HYPERGLY) 135 mmol/L (136-145); CREATININE 0.99 mg/dL (0.70-1.30); SODIUM 133 mmol/L (136-145); TOTAL PROTEIN 6.4 g/dL (6.4-8.2); eGFR NON BLACK RACES > 60 (>60)
[2018-12-28] MEDS: MEFOXIN 1 G in NS 100 ML IV + SPIKE MINIBAG* 100 ML IV SCH ×3 (05:38→21:59)
[2018-12-28] MEDS: FLAGYL IV PREMIX 500 MG BAG 500 MG/100 ML BAG IV SCH ×3 (06:23→21:59)
[2018-12-28] MEDS: LOVENOX INJ 40 MG SYR SC SCH (08:41)
[2018-12-28] MEDS: ACTOS PO SCH (08:41)
[2018-12-28] MEDS: LR 1000 ML IV 1,000 ML IV SCH ×4 (08:41→22:17)
[2018-12-28] MEDS: LEVAQUIN PREMIX IV 500 MG 500 MG/100 ML BAG IV SCH (08:41)
[2018-12-28] MEDS: ZESTRIL TAB 10 MG PO SCH (08:42)
[2018-12-28] MEDS: LOPRESSOR INJ 5 MG AMP IVP PRN ×2 (09:29→16:13)
--- NOTE | 2018-12-28 12:31 | DR.PROGNOT ---
Hospital Progress Notes - Progress Note for Day of: Progress Note Date: 12/28/18 - Chief Complaint Chief Complaint: had several episodes of vomiting last night . feeling better this am . normal VS and afebrile . LFTs are normal . mild drainage in RACHELE . - Past Medical Family Social History Past Med/Fam/Surg Hx: No changes since H&P Allergies: Allergies Penicillins Allergy (Mild, Verified 12/25/18 19:56) Sulfa (Sulfonamide Antibiotics) [SULFA] Allergy (Mild, Verified 12/25/18 19:56) - Review Of Systems ROS: No change since H&P - Vital Signs Vital Signs: Temperature 98.3 F Pulse Rate [Brachial] 77 Pulse Rate 69 Respiratory Rate 18 Blood Pressure [Left Arm] 129/65 Blood Pressure [Right Arm] 118/67 Blood Pressure 161/76 O2 Sat by Pulse Oximetry 94 - Physical Exam Oriented: Normal, Person Ear: Normal Nose: Normal, Blood Throat: negative: Normal Respiratory: Normal Cardiovascular: Normal : Normal GI:Auscultation: Decreased GI: Tenderness: Diffuse (mild tenderness, BS hypoactive .) Skin: Normal Musculoskeletal: Normal Psychiatric: negative: Normal Mood Description: Calm Speech Pattern: Clear, Appropriate - Laboratory and Diagnostics Result Diagrams: 12/28/18 04:23 12/28/18 04:23 Labs: 12/26/18 12:00 Urine,Catheterized Urine Culture - Final 12/25/18 23:26 Blood Blood Culture - Preliminary 12/25/18 23:20 Blood Blood Culture - Preliminary Laboratory WBC 9.5 X10^3/uL (3.6-10.0) 12/28/18 04:23 RBC 4.57 X10^6/uL (4.7-6.0) L 12/28/18 04:23 Hgb 13.9 g/dL (13.5-18.0) 12/28/18 04:23 Hct 39.7 % (42.0-54.0) L 12/28/18 04:23 MCV 87.0 fL (80.0-100.0) 12/28/18 04:23 MCH 30.4 pg (27.0-34.0) 12/28/18 04:23 MCHC 34.9 g/dL (33.0-35.0) 12/28/18 04:23 RDW 13.5 % (11.6-16.5) 12/28/18 04:23 Plt Count 260 X10^3/uL (150.0-450.0) 12/28/18 04:23 MPV 6.7 fL (7.4-11.0) L 12/28/18 04:23 Neut % (Auto) 75.5 % (42.0-75.0) H 12/28/18 04:23 Lymph % (Auto) 14.9 % (21.0-51.0) L 12/28/18 04:23 [place] % (Auto) 7.6 % (0.0-13.0) 12/28/18 04:23 Eos % (Auto) 1.5 % (0.9-2.9) 12/28/18 04:23 Baso % (Auto) 0.5 % (0.2-1.0) 12/28/18 04:23 Neut # (Auto) 7.2 x10^3/uL (2.2-4.8) H 12/28/18 04:23 Lymph # (Auto) 1.4 X10^3/uL (1.3-2.9) 12/28/18 04:23 [place] # (Auto) 0.7 x10^3/uL (0.3-0.8) 12/28/18 04:23 Eos # (Auto) 0.1 x10^3/uL (0.0-0.2) 12/28/18 04:23 Baso # (Auto) 0.0 X10^3/uL (0.0-0.1) 12/28/18 04:23 Absolute Nucleated RBC 0.1 /100WBC 12/28/18 04:23 Sodium 133 mmol/L (136-145) L 12/28/18 04:23 Corrected Sodium 135 mmol/L (136-145) L 12/28/18 04:23 Potassium 4.1 mmol/L (3.5-5.1) 12/28/18 04:23 Chloride 98 mmol/L (98-107) 12/28/18 04:23 Carbon Dioxide 29.0 mmol/L (21-32) 12/28/18 04:23 BUN 12 mg/dL (7-18) 12/28/18 04:23 Creatinine 0.99 mg/dL (0.70-1.30) 12/28/18 04:23 Est GFR (MDRD) Af Amer > 60 (>60) 12/28/18 04:23 Est GFR (MDRD) Non-Af > 60 (>60) 12/28/18 04:23 Glucose 167 mg/dL (65-99) H 12/28/18 04:23 POC Glucose (mg/dL) 146 mg/dL (65-99) H 12/28/18 11:51 Lactic Acid 0.8 mmol/L (0.4-2.0) 12/25/18 23:26 Calcium 8.4 mg/dL (8.5-10.1) L 12/28/18 04:23 Corrected Calcium 9.8 mg/dL (8.5-10.1) 12/28/18 04:23 Magnesium 2.0 mg/dL (1.7-2.9) 12/26/18 04:26 Total Bilirubin 0.40 mg/dL (0.2-1.0) 12/28/18 04:23 AST 25 Units/L (15-37) 12/28/18 04:23 ALT 24 Units/L (12-78) 12/28/18 04:23 Alkaline Phosphatase 74 Units/L (46-116) 12/28/18 04:23 Total Protein 6.4 g/dL (6.4-8.2) 12/28/18 04:23 Albumin 2.3 g/dL (3.4-5.0) L 12/28/18 04:23 Globulin 4.1 g/dL (2.5-4.5) 12/28/18 04:23 Albumin/Globulin Ratio 0.6 Ratio (1.1-2.1) L 12/28/18 04:23 Amylase 34 Units/L (25-115) 12/26/18 04:26 Lipase 54 Units/L (73-393) L 12/26/18 04:26 Specimen Type Catherized urine 12/26/18 12:00 Urine Color Dark yellow (YELLOW) 12/26/18 12:00 Urine Appearance Hazy (CLEAR) 12/26/18 12:00 Urine pH 5.0 (5.0 - 8.0) 12/26/18 12:00 Ur Specific [place] 1.015 (1.000-1.030) 12/26/18 12:00 Urine Protein 3+ (NEGATIVE) 12/26/18 12:00 Urine Glucose (UA) Negative (NEGATIVE) 12/26/18 12:00 Urine Ketones 1+ (NEGATIVE) 12/26/18 12:00 Urine Occult Blood 2+ (NEGATIVE) 12/26/18 12:00 Urine Nitrite Positive (NEGATIVE) 12/26/18 12:00 Urine Bilirubin Negative (NEGATIVE) 12/26/18 12:00 Urine Urobilinogen Normal (NORMAL) 12/26/18 12:00 Ur Leukocyte Esterase 1+ (NEGATIVE) 12/26/18 12:00 Urine RBC 0-2 /HPF (0-3) 12/26/18 12:00 Urine WBC 3-5 /HPF (0-5) 12/26/18 12:00 Ur Squamous Epith Cells Rare /HPF (NEGATIVE) 12/26/18 12:00 Urine Bacteria 1+ /HPF (NEGATIVE) 12/26/18 12:00 Ur Culture Indicated? Yes/culture set up 12/26/18 12:00 Tissue Pathology To follow 12/26/18 15:24 - Assessment and Plan 1: s/p lap josiah for gangrenous cholecystitis.. DM. CAD . obesity ... to keep on clear liquid , same IV ATB , DVT prophylaxis and PO care .
--- NOTE | 2018-12-28 13:04 | RAD ---
HISTORY: Nausea and vomiting. Prior history of coronary artery disease, hypertension diabetes. Study: Two-view abdomen Comparison: 12/25/2018. Technique: KUB and upright views the abdomen provided. Findings: There again changes of CABG. Few subsegmental linear foci of atelectasis are seen in the lung bases. There is no evidence of free intraperitoneal air. Gaseous distention of the stomach and small bowel loops is appreciated as well as air present throughout the colon including rectum. Findings have the appearance generalized abdominal ileus. There is no evidence of ascites. There are postsurgical changes from cholecystectomy. A surgical drainage tube is seen extending into the gallbladder bed. Osseous structures are intact. IMPRESSION: Generalized abdominal ileus without bowel obstruction or perforation. No free intraperitoneal air is seen. Postsurgical changes as noted above. There is apparently a surgical drainage tube extending into the region of the gallbladder bed. Very mild subsegmental linear atelectasis seen in the lung bases. Reported By:
[2018-12-28] MEDS: VASOTEC INJ 2.5 MG VIAL IVP PRN ×2 (13:06→22:17)
[2018-12-28] MEDS: ZOFRAN INJ 4 MG VIAL IVP PRN (18:38)
[2018-12-29] MEDS: LR 1000 ML IV 1,000 ML IV SCH ×4 (00:02→19:43)
[2018-12-29] MEDS: LOPRESSOR INJ 5 MG AMP IVP PRN ×2 (00:11→08:33)
[2018-12-29] MEDS: ZOFRAN INJ 4 MG VIAL IVP PRN (02:24)
[2018-12-29] MEDS: PHENERGAN INJ 25 MG IM PRN ×2 (03:00→19:46)
[2018-12-29] MEDS: VASOTEC INJ 2.5 MG VIAL IVP PRN (04:35)
[2018-12-29] MEDS: FLAGYL IV PREMIX 500 MG BAG 500 MG/100 ML BAG IV SCH ×3 (05:06→21:02)
[2018-12-29 05:09] LABS: BASOPHILS % (AUTO) 0.4 % (0.2-1.0); EOSINOPHILS # (AUTO) 0.2 x10^3/uL (0.0-0.2); EOSINOPHILS % (AUTO) 1.5 % (0.9-2.9); HEMATOCRIT 40.3 % (42.0-54.0); HEMOGLOBIN 13.8 g/dL (13.5-18.0); LYMPHOCYTES # (AUTO) 1.4 X10^3/uL (1.3-2.9); LYMPHOCYTES % (AUTO) 12.7 % (21.0-51.0); MEAN CORPUSCULAR HEMOGLOBIN 29.8 pg (27.0-34.0); MEAN CORPUSCULAR HGB CONC 34.3 g/dL (33.0-35.0); MEAN CORPUSCULAR VOLUME 86.8 fL (80.0-100.0); MEAN PLATELET VOLUME 6.5 fL (7.4-11.0); MONOCYTES # (AUTO) 0.7 x10^3/uL (0.3-0.8); MONOCYTES % (AUTO) 6.7 % (0.0-13.0); NEUTROPHILS # (AUTO) 8.8 x10^3/uL (2.2-4.8); NEUTROPHILS % (AUTO) 78.7 % (42.0-75.0); PLATELET COUNT 271 X10^3/uL (150.0-450.0); RED BLOOD COUNT 4.64 X10^6/uL (4.7-6.0); RED CELL DISTRIBUTION WIDTH 13.7 % (11.6-16.5); WHITE BLOOD COUNT 11.1 X10^3/uL (3.6-10.0)
[2018-12-29 05:25] LABS: ALANINE AMINOTRANSFERASE 17 Units/L (12-78); ALBUMIN 2.2 g/dL (3.4-5.0); ALKALINE PHOSPHATASE 69 Units/L (46-116); ASPARTATE AMINO TRANSFERASE 21 Units/L (15-37); BLOOD UREA NITROGEN 14 mg/dL (7-18); CALCIUM 8.5 mg/dL (8.5-10.1); CARBON DIOXIDE 26.9 mmol/L (21-32); CHLORIDE 97 mmol/L (98-107); COR CA(FOR HYPOALB) 9.9 mg/dL (8.5-10.1); COR NA(FOR HYPERGLY) 134 mmol/L (136-145); CREATININE 0.93 mg/dL (0.70-1.30); SODIUM 133 mmol/L (136-145); TOTAL PROTEIN 6.2 g/dL (6.4-8.2); eGFR NON BLACK RACES > 60 (>60)
[2018-12-29] MEDS: MEFOXIN 1 G in NS 100 ML IV + SPIKE MINIBAG* 100 ML IV SCH ×3 (06:02→21:02)
[2018-12-29] MEDS: K-RIDER 10 MEQ/NS 100 ML 10 MEQ/100 ML BAG IV PRN (07:34)
[2018-12-29] MEDS ORDERED: VASOTEC INJ 2.5 MG VIAL IVP PRN (09:16)
[2018-12-29] MEDS: LEVAQUIN PREMIX IV 500 MG 500 MG/100 ML BAG IV SCH (09:20)
[2018-12-29] MEDS: LOVENOX INJ 40 MG SYR SC SCH (09:20)
[2018-12-29] MEDS: ACTOS PO SCH (12:46)
[2018-12-29] MEDS: ZESTRIL TAB 10 MG PO SCH (12:47)
--- NOTE | 2018-12-29 23:13 | DR.PROGNOT ---
Hospital Progress Notes - Progress Note for Day of: Progress Note Date: 12/29/18 - Chief Complaint Chief Complaint: had several episodes of vomiting last night . feeling better this am . normal VS and afebrile . LFTs are norml. RACHELE was removed . - Past Medical Family Social History Past Med/Fam/Surg Hx: No changes since H&P Allergies: Allergies Penicillins Allergy (Mild, Verified 12/25/18 19:56) Sulfa (Sulfonamide Antibiotics) [SULFA] Allergy (Mild, Verified 12/25/18 19:56) - Review Of Systems ROS: No change since H&P - Vital Signs Vital Signs: Temperature 97.9 F Pulse Rate [Brachial] 77 Pulse Rate 73 Respiratory Rate 17 Blood Pressure [Left Arm] 129/65 Blood Pressure [Right Arm] 118/67 Blood Pressure 151/73 O2 Sat by Pulse Oximetry 94 - Physical Exam Oriented: Normal, Person Ear: Normal Nose: Normal, Blood Throat: negative: Normal Respiratory: Normal Cardiovascular: Normal : Normal GI:Auscultation: Decreased GI: Tenderness: Diffuse (mild tenderness, BS hypoactive .) Skin: Normal Musculoskeletal: Normal Psychiatric: negative: Normal Mood Description: Calm Speech Pattern: Clear, Appropriate - Laboratory and Diagnostics Result Diagrams: 12/29/18 04:45 12/29/18 16:57 Labs: 12/26/18 12:00 Urine,Catheterized Urine Culture - Final 12/25/18 23:26 Blood Blood Culture - Preliminary 12/25/18 23:20 Blood Blood Culture - Preliminary Laboratory WBC 11.1 X10^3/uL (3.6-10.0) H 12/29/18 04:45 RBC 4.64 X10^6/uL (4.7-6.0) L 12/29/18 04:45 Hgb 13.8 g/dL (13.5-18.0) 12/29/18 04:45 Hct 40.3 % (42.0-54.0) L 12/29/18 04:45 MCV 86.8 fL (80.0-100.0) 12/29/18 04:45 MCH 29.8 pg (27.0-34.0) 12/29/18 04:45 MCHC 34.3 g/dL (33.0-35.0) 12/29/18 04:45 RDW 13.7 % (11.6-16.5) 12/29/18 04:45 Plt Count 271 X10^3/uL (150.0-450.0) 12/29/18 04:45 MPV 6.5 fL (7.4-11.0) L 12/29/18 04:45 Neut % (Auto) 78.7 % (42.0-75.0) H 12/29/18 04:45 Lymph % (Auto) 12.7 % (21.0-51.0) L 12/29/18 04:45 [place] % (Auto) 6.7 % (0.0-13.0) 12/29/18 04:45 Eos % (Auto) 1.5 % (0.9-2.9) 12/29/18 04:45 Baso % (Auto) 0.4 % (0.2-1.0) 12/29/18 04:45 Neut # (Auto) 8.8 x10^3/uL (2.2-4.8) H 12/29/18 04:45 Lymph # (Auto) 1.4 X10^3/uL (1.3-2.9) 12/29/18 04:45 [place] # (Auto) 0.7 x10^3/uL (0.3-0.8) 12/29/18 04:45 Eos # (Auto) 0.2 x10^3/uL (0.0-0.2) 12/29/18 04:45 Baso # (Auto) 0.0 X10^3/uL (0.0-0.1) 12/29/18 04:45 Absolute Nucleated RBC 0.1 /100WBC 12/29/18 04:45 Sodium 133 mmol/L (136-145) L 12/29/18 04:45 Corrected Sodium 134 mmol/L (136-145) L 12/29/18 04:45 Potassium 3.8 mmol/L (3.5-5.1) 12/29/18 16:57 Chloride 97 mmol/L (98-107) L 12/29/18 04:45 Carbon Dioxide 26.9 mmol/L (21-32) 12/29/18 04:45 BUN 14 mg/dL (7-18) 12/29/18 04:45 Creatinine 0.93 mg/dL (0.70-1.30) 12/29/18 04:45 Est GFR (MDRD) Af Amer > 60 (>60) 12/29/18 04:45 Est GFR (MDRD) Non-Af > 60 (>60) 12/29/18 04:45 Glucose 143 mg/dL (65-99) H 12/29/18 04:45 POC Glucose (mg/dL) 176 mg/dL (65-99) H 12/29/18 19:59 Lactic Acid 0.8 mmol/L (0.4-2.0) 12/25/18 23:26 Calcium 8.5 mg/dL (8.5-10.1) 12/29/18 04:45 Corrected Calcium 9.9 mg/dL (8.5-10.1) 12/29/18 04:45 Magnesium 2.0 mg/dL (1.7-2.9) 12/26/18 04:26 Total Bilirubin 0.40 mg/dL (0.2-1.0) 12/29/18 04:45 AST 21 Units/L (15-37) 12/29/18 04:45 ALT 17 Units/L (12-78) 12/29/18 04:45 Alkaline Phosphatase 69 Units/L (46-116) 12/29/18 04:45 Total Protein 6.2 g/dL (6.4-8.2) L 12/29/18 04:45 Albumin 2.2 g/dL (3.4-5.0) L 12/29/18 04:45 Globulin 4.0 g/dL (2.5-4.5) 12/29/18 04:45 Albumin/Globulin Ratio 0.6 Ratio (1.1-2.1) L 12/29/18 04:45 Amylase 34 Units/L (25-115) 12/26/18 04:26 Lipase 54 Units/L (73-393) L 12/26/18 04:26 Specimen Type Catherized urine 12/26/18 12:00 Urine Color Dark yellow (YELLOW) 12/26/18 12:00 Urine Appearance Hazy (CLEAR) 12/26/18 12:00 Urine pH 5.0 (5.0 - 8.0) 12/26/18 12:00 Ur Specific [place] 1.015 (1.000-1.030) 12/26/18 12:00 Urine Protein 3+ (NEGATIVE) 12/26/18 12:00 Urine Glucose (UA) Negative (NEGATIVE) 12/26/18 12:00 Urine Ketones 1+ (NEGATIVE) 12/26/18 12:00 Urine Occult Blood 2+ (NEGATIVE) 12/26/18 12:00 Urine Nitrite Positive (NEGATIVE) 12/26/18 12:00 Urine Bilirubin Negative (NEGATIVE) 12/26/18 12:00 Urine Urobilinogen Normal (NORMAL) 12/26/18 12:00 Ur Leukocyte Esterase 1+ (NEGATIVE) 12/26/18 12:00 Urine RBC 0-2 /HPF (0-3) 12/26/18 12:00 Urine WBC 3-5 /HPF (0-5) 12/26/18 12:00 Ur Squamous Epith Cells Rare /HPF (NEGATIVE) 12/26/18 12:00 Urine Bacteria 1+ /HPF (NEGATIVE) 12/26/18 12:00 Ur Culture Indicated? Yes/culture set up 12/26/18 12:00 Stool Description 5g unformed green 12/29/18 07:14 Stl Occult Blood (IFOB) Negative (NEGATIVE) 12/29/18 07:14 Stool for White Cells Negative (NEGATIVE) 12/29/18 07:14 Stool H. pylori Ag Negative (NEGATIVE) 12/29/18 07:14 Tissue Pathology To follow 12/26/18 15:24 - Assessment and Plan 1: Post Operative ileus ,s/p lap josiah for gangrenous cholecystitis.. DM. CAD . obesity ... to keep on clear liquid , same IV ATB , DVT prophylaxis and PO care . PT to ambulate .
[2018-12-30 05:00] LABS: BASOPHILS # (AUTO) 0.1 X10^3/uL (0.0-0.1); BASOPHILS % (AUTO) 0.6 % (0.2-1.0); EOSINOPHILS # (AUTO) 0.2 x10^3/uL (0.0-0.2); EOSINOPHILS % (AUTO) 2.5 % (0.9-2.9); HEMATOCRIT 41.1 % (42.0-54.0); HEMOGLOBIN 14.3 g/dL (13.5-18.0); LYMPHOCYTES % (AUTO) 20.5 % (21.0-51.0); MEAN CORPUSCULAR HEMOGLOBIN 30.1 pg (27.0-34.0); MEAN CORPUSCULAR HGB CONC 34.7 g/dL (33.0-35.0); MEAN CORPUSCULAR VOLUME 86.8 fL (80.0-100.0); MEAN PLATELET VOLUME 6.5 fL (7.4-11.0); MONOCYTES # (AUTO) 0.6 x10^3/uL (0.3-0.8); MONOCYTES % (AUTO) 6.7 % (0.0-13.0); NEUTROPHILS # (AUTO) 6.8 x10^3/uL (2.2-4.8); NEUTROPHILS % (AUTO) 69.7 % (42.0-75.0); PLATELET COUNT 266 X10^3/uL (150.0-450.0); RED BLOOD COUNT 4.73 X10^6/uL (4.7-6.0); RED CELL DISTRIBUTION WIDTH 13.7 % (11.6-16.5); WHITE BLOOD COUNT 9.7 X10^3/uL (3.6-10.0)
[2018-12-30 05:10] LABS: ALANINE AMINOTRANSFERASE 16 Units/L (12-78); ALBUMIN 2.2 g/dL (3.4-5.0); ALKALINE PHOSPHATASE 65 Units/L (46-116); ASPARTATE AMINO TRANSFERASE 23 Units/L (15-37); BLOOD UREA NITROGEN 14 mg/dL (7-18); CALCIUM 8.3 mg/dL (8.5-10.1); CARBON DIOXIDE 27.5 mmol/L (21-32); CHLORIDE 102 mmol/L (98-107); COR CA(FOR HYPOALB) 9.7 mg/dL (8.5-10.1); COR NA(FOR HYPERGLY) 141 mmol/L (136-145); CREATININE 0.95 mg/dL (0.70-1.30); SODIUM 139 mmol/L (136-145); TOTAL PROTEIN 5.9 g/dL (6.4-8.2); eGFR NON BLACK RACES > 60 (>60)
[2018-12-30] MEDS: LR 1000 ML IV 1,000 ML IV SCH ×2 (05:36→16:30)
[2018-12-30] MEDS: MEFOXIN 1 G in NS 100 ML IV + SPIKE MINIBAG* 100 ML IV SCH ×2 (05:36→14:06)
[2018-12-30] MEDS: FLAGYL IV PREMIX 500 MG BAG 500 MG/100 ML BAG IV SCH ×2 (05:36→15:26)
[2018-12-30] MEDS: LEVAQUIN PREMIX IV 500 MG 500 MG/100 ML BAG IV SCH (08:30)
[2018-12-30] MEDS: ACTOS PO SCH (08:30)
[2018-12-30] MEDS: LOVENOX INJ 40 MG SYR SC SCH (08:30)
[2018-12-30] MEDS: ZESTRIL TAB 10 MG PO SCH (08:32)
[2018-12-30 16:56] VITALS: BP 146/80
== END 2018-12-30 17:10 | disposition home health service (06) | DRG 445 ==
LOC: ER 19:41 → ICU 12-26 01:43
PROVIDERS: ADMIT Obstetrics & Gynecology Obstetrics; ATTEND Obstetrics & Gynecology Obstetrics
DX: E11.65 Type 2 diabetes mellitus with hyperglycemia; K57.32 Diverticulitis of large intestine without perforation or abscess without bleeding; K82.8 Other specified diseases of gallbladder; R26.89 Other abnormalities of gait and mobility; I10 Essential (primary) hypertension; K80.00 Calculus of gallbladder with acute cholecystitis without obstruction; K82.A1 Gangrene of gallbladder in cholecystitis; K56.7 Ileus, unspecified; E78.2 Mixed hyperlipidemia
CPT/HCPCS: 36415; 71010; 71045; 74022; 74177; 80053; 81001; 82150; 82270; 82947; 83605; 83630; 83690; 83735; 84132; 85025; 87040; 87045; 87086; 87338; 87427; 87449; 87899; 88304; 93005; 96365; 96367; 96374; 96375; 97162; 97166; 97530; 99100; 99284; A4216; A4222; S0028; S0030; J0330; J0694; J1170; J1650; J1956; J2250; J2405; J2550; J2704; J2710; J3010; J3480; J3490; J7030; J7042; J7050; J7120; S5010

== ENCOUNTER 2022-05-17 14:07 | Inpatient (IN) ==
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
[2022-05-17 15:20] LABS: BASOPHILS # (AUTO) 0.1 X10^3/uL (0.0-0.1); BASOPHILS % (AUTO) 0.7 % (0.2-1.0); EOSINOPHILS % (AUTO) 0.4 % (0.9-2.9); HEMATOCRIT 39.6 % (42.0-54.0); HEMOGLOBIN 13.8 g/dL (13.5-18.0); LYMPHOCYTES # (AUTO) 1.6 X10^3/uL (1.3-2.9); LYMPHOCYTES % (AUTO) 17.1 % (21.0-51.0); MEAN CORPUSCULAR HEMOGLOBIN 30.4 pg (27.0-34.0); MEAN CORPUSCULAR HGB CONC 34.9 g/dL (33.0-35.0); MEAN CORPUSCULAR VOLUME 87.1 fL (80.0-100.0); MEAN PLATELET VOLUME 6.7 fL (7.4-11.0); MONOCYTES # (AUTO) 0.8 x10^3/uL (0.3-0.8); NEUTROPHILS # (AUTO) 6.7 x10^3/uL (2.2-4.8); NEUTROPHILS % (AUTO) 72.8 % (42.0-75.0); RED BLOOD COUNT 4.55 X10^6/uL (4.7-6.0); RED CELL DISTRIBUTION WIDTH 13.6 % (11.6-16.5); WHITE BLOOD COUNT 9.1 X10^3/uL (3.6-10.0)
[2022-05-17 15:26] LABS: ALANINE AMINOTRANSFERASE 16 Units/L (12-78); ALBUMIN 3.2 g/dL (3.4-5.0); ALKALINE PHOSPHATASE 96 Units/L (46-116); ASPARTATE AMINO TRANSFERASE 16 Units/L (15-37); BLOOD UREA NITROGEN 11 mg/dL (7-18); CALCIUM 8.8 mg/dL (8.5-10.1); CARBON DIOXIDE 32.4 mmol/L (21-32); CHLORIDE 97 mmol/L (98-107); COR CA(FOR HYPOALB) 9.4 mg/dL (8.5-10.1); COR NA(FOR HYPERGLY) 137 mmol/L (136-145); CREATININE 0.97 mg/dL (0.70-1.30); SODIUM 133 mmol/L (136-145); TOTAL PROTEIN 7.3 g/dL (6.4-8.2); eGFR NON BLACK RACES > 60 (>60)
[2022-05-17] MEDS ORDERED: VANCOMYCIN IV *PREMIX 1 G/200 ML BAG 1 G/200 ML PIGGYBACK IV ONE ×2 (18:06→18:14)
--- NOTE | 2022-05-17 19:38 | RAD ---
HISTORYWOUND R/O OSTEOMYLITISSTUDYFOOT, LEFT three-viewCOMPARISONNoneFINDINGSNo acute cortical disruption or dislocation can be identified. No significant soft tissue swelling or injury can be seen. Calcaneal enthesophytes. Scattered vascular calcifications.IMPRESSIONNo acute fracture or dislocation.Electronically signed by: EVELIN VALIENTE (May 17, 2022 19:36:11)
--- NOTE | 2022-05-17 19:39 | RAD ---
HISTORYWOUND R/O OSTEOMYLITIS Relevant Clinical InformationSTUDYFOOT, RIGHTCOMPARISONFINDINGSNo erosive changes seen to suggest osteomyelitis. There is questionably some gas in the soft tissues between the 1st and 2nd MTP joints and also in the area of the proximal phalanx of the little toe. There is a linear lucency in the proximal phalanx of the which could be a nondisplaced fracture. There are degenerative changes in the forefoot including the 1st and 5th MTP joint and the interphalangeal joints. There is also degeneration in midfoot.IMPRESSIONNo evidence for osteomyelitis. 2. Suspect fracture in the proximal phalanx of the little toe.Electronically signed by: Johnson Enriquez (May 17, 2022 19:38:21)
[2022-05-17] MEDS: VANCOMYCIN IV *PREMIX 1 G/200 ML BAG 1 G/200 ML PIGGYBACK IV SCH (22:39)
[2022-05-18 00:40] VITALS: BMI 21.8
[2022-05-18 06:42] LABS: BASOPHILS # (AUTO) 0.1 X10^3/uL (0.0-0.1); BASOPHILS % (AUTO) 0.5 % (0.2-1.0); EOSINOPHILS % (AUTO) 0.3 % (0.9-2.9); HEMATOCRIT 37.1 % (42.0-54.0); LYMPHOCYTES # (AUTO) 2.1 X10^3/uL (1.3-2.9); LYMPHOCYTES % (AUTO) 17.6 % (21.0-51.0); MEAN CORPUSCULAR HEMOGLOBIN 30.3 pg (27.0-34.0); MEAN CORPUSCULAR VOLUME 86.4 fL (80.0-100.0); MEAN PLATELET VOLUME 6.9 fL (7.4-11.0); MONOCYTES # (AUTO) 1.2 x10^3/uL (0.3-0.8); MONOCYTES % (AUTO) 9.8 % (0.0-13.0); NEUTROPHILS # (AUTO) 8.4 x10^3/uL (2.2-4.8); NEUTROPHILS % (AUTO) 71.8 % (42.0-75.0); RED CELL DISTRIBUTION WIDTH 13.9 % (11.6-16.5); WHITE BLOOD COUNT 11.7 X10^3/uL (3.6-10.0)
[2022-05-18 06:46] LABS: ALANINE AMINOTRANSFERASE 15 Units/L (12-78); ALKALINE PHOSPHATASE 91 Units/L (46-116); ASPARTATE AMINO TRANSFERASE 15 Units/L (15-37); BLOOD UREA NITROGEN 11 mg/dL (7-18); CARBON DIOXIDE 29.1 mmol/L (21-32); CHLORIDE 97 mmol/L (98-107); COR CA(FOR HYPOALB) 9.8 mg/dL (8.5-10.1); COR NA(FOR HYPERGLY) 134 mmol/L (136-145); CREATININE 0.89 mg/dL (0.70-1.30); SODIUM 132 mmol/L (136-145); eGFR NON BLACK RACES > 60 (>60)
[2022-05-18] MEDS: ACTOS PO SCH (08:52)
[2022-05-18] MEDS: VANCOMYCIN IV *PREMIX 1 G/200 ML BAG 1 G/200 ML PIGGYBACK IV SCH ×2 (08:52→21:37)
[2022-05-18] MEDS: LOPRESSOR TAB 25 MG PO SCH ×2 (08:53→21:38)
[2022-05-18] MEDS ORDERED: PATIENT'S HOME MEDICATION (Ranitidine Hcl 150 MG tablet) PO SCH (09:00)
[2022-05-18] MEDS ORDERED: NS 250 ML IV 250 ML IV ONE (09:09)
[2022-05-18] MEDS ORDERED: LOVENOX INJ 30 MG SYR SC SCH (11:00)
[2022-05-18] MEDS: NovoLIN R (or HumuLIN R) SUBCUT PRN ×2 (11:17→21:36)
[2022-05-18] MEDS ORDERED: LOVENOX INJ 30 MG SYR SC ONE (11:22)
[2022-05-18] MEDS: PEPCID TAB 20 MG PO SCH ×2 (11:25→21:38)
[2022-05-18] MEDS ORDERED: BUTT CREAM (COMPOUND) TOP PRN (19:18)
[2022-05-18] MEDS: CRESTOR TAB 10 MG PO SCH (21:38)
--- NOTE | 2022-05-18 23:13 | DR.H&P ---
H&P - History & Physical for Day of: H&P Date: 05/17/22 - Chief Complaint Chief Complaint: BILATERAL FOOT PAIN AND WOUNDS, WEAKNESS, UNSTEADY GAIT - History of Present Illness History of Present Illness: IS A 76 YEAR OLD PATIENT OF . HE PRESENTED TO THE ER WITH COMPLAINTS OF INCREASED WEAKNESS, UNSTEADY GAIT, BILATERAL FOOT PAIN, AND DIARRHEA. PATIENT WAS BEING CARED FOR BY HIS GRANDDAUGHTER AT HIS HOME, HOWEVER, [facility] WAS CALLED IN DUE TO POSSIBLE NEGLECT. PATIENT REPORTS THAT SYMPTOMS HAVE BEEN PRESENT FOR THE PAST SEVERAL MONTHS. UPON EXAMINATION, PATIENT WAS NOTED TO HAVE MULTIPLE WOUNDS TO BILATERAL FEET. THERE ARE GANGRENOUS CHANGES OF THE MIDDLE TOES WITH ASSOCIATED CELLULITIS OF THE FOOT AND ULCERS ON THE DORSAL FOOT, DOWN THROUGH THE SUBCUTANEOUS TISSUE AND EXPOSING THE UNDERNEATH STRUCTURES. HE HAS CHRONIC SKIN CHANGES ON BOTH LEGS. THE DISTAL PULSES WERE POSITIVE WITH DOPPLER ONLY. THERE WAS ALSO ERYTHEMA AND MILD EDEMA NOTED TO LOWER EXTREMITIES. HIS PMH INCLUDES: ARTHRITIS, DM II, DYSLIPIDEMIA, HTN, APPENDECTOMY, CABG, CHOLECYSTECTOMY, AND TONSILLECTOMY. ON ARRIVAL TO THE ER, HIS VITALS WERE: 98.1-82-20-98%-146/88. LABS WERE OBTAINED. WBC 9.4, RBC 4.55, HGB 13.8, HCT 39.6, PLT COUNT 229, SODIUM 133, POTASSIUM 4.3, CHLORIDE 97, CARBON DIOXIDE 32.4, BUN 11, CREATININE 0.97, GLUCOSE 248, CALCIUM 8.8, TOTAL BILI 0.70, AST 16, ALT 16, ALK PHOS 96, TOTAL PROTEIN 7.3, ALBUMIN 3.2. WOUND CULTURE OF THE LEFT FOOT WAS SET UP. A LEFT FOOT XRAY WAS OBTAINED AND REVEALED: No acute fracture or dislocation. A RIGHT FOOT XRAY WAS OBTAINED AND REVEALED: No erosive changes seen to suggest osteomyelitis. There is questionably some gas in the soft tissues between the 1st and 2nd MTP joints and also in the area of the proximal phalanx of the little toe. There is a linear lucency in the proximal phalanx of the which could be a nondisplaced fracture. There are degenerative changes in the forefoot including the 1st and 5th MTP joint and the interphalangeal joints. There is also degeneration in midfoot. IN THE ER, HE WAS GIVEN VANCOMYCIN 1G IV X 1. HE WAS ADMITTED INPATIENT STATUS FOR TREATMENT OF DECONDITIONING, PERIPHERAL ARTERIAL DISEASE, CELLULITIS OF BILATERAL LOWER EXTREMITIES, HYPERGLYCEMIA. HE WAS STARTED ON VANCOMYCIN 1G IV Q12H, LOVENOX 40MG SC DAILY, OTBS ACHS, HUMULIN R SLIDING SCALE. HIS HOME MEDICATIONS OF PEPCID, LOPRESSOR, ACTOS, AND CRESTOR WERE RESUMED. WE WILL CONSULT , GENERAL SURGEON, FOR WOUNDS TO BILATERAL FEET. WE WILL HAVE PHYSICAL THERAPY EVALUATE PATIENT. OTHERWISE, WE WILL FOLLOW-UP WITH AM LABS AND CONTINUE TO MONITOR. TIME SPENT ON CLINICAL ASSESSMENT, REVIEWING LABS AND IMAGING, DECISION MAKING, AND DOCUMENTATION GREATER THAN 75 MINUTES. - Past Medical History Past Medical History: Hypertension, Dyslipidemia, Diabetes, Arthritis - Past Surgical History Surgical History: Appendectomy, CABG/Valve Surgery, Cholecystectomy, Tonsillectomy, Other - Family History Family Medical History: Diabetes Mellitus, Cancer, Coronary Artery Disease - Social History Does patient currently use any type of tobacco product: No Have you used tobacco products in the last 12 months: No Type of Tobacco Use: None Does any household member use tobacco: No Alcohol Use: None Drug Use: None - Medications Home Medications: Penicillins Allergy (Mild, Verified 12/25/18 19:56) Sulfa (Sulfonamide Antibiotics) [SULFA] Allergy (Mild, Verified 12/25/18 19:56) - Review of Systems Constitutional: Weakness Eyes: No Symptoms Reported ENT: No Symptoms Reported Respiratory: No Symptoms Reported Cardiovascular: No Symptoms Reported Gastrointestinal: No Symptoms Reported Genitourinary: No Symptoms Reported Musculoskeletal: Foot Pain (BILATERAL FOOT PAIN ) Skin: Wound (MULTIPLE WOUNDS TO BILATERAL FEET, SEE HPI ) Neurological: Weakness - Physical Exam Vital Signs: Temperature 99.9 F Pulse Rate [Brachial] 72 Pulse Rate 83 Respiratory Rate 18 Blood Pressure [Left Arm] 124/60 Blood Pressure [Right Arm] 135/91 Blood Pressure 146/88 O2 Sat by Pulse Oximetry 97 Oriented: Normal Eyes: Normal Ear: Normal Nose: Normal Throat: Normal Respiratory: Diminished Throughout Cardiovascular: Normal : Normal Auscultation: Bowel Sounds: Normal Palpation: Normal Tenderness: Normal Skin: Red (BILATERAL FEET ), Tender, Hot, Wound Musculoskeletal: Right, Left, Foot, Tender Psychiatric: Normal Mood Description: Calm Affect: Normal Speech Pattern: Clear - Assessment/Plan (1) Cellulitis of both feet Status: Acute Plan: ADMIT, CONSULT GENERAL SURGERY, VANCOMYCIN 1G IV Q12H, LOVENOX 40MG SC DAILY, OTBS ACHS, HUMULIN R SLIDING SCALE. HIS HOME MEDICATIONS OF PEPCID, LOPRESSOR, ACTOS, AND CRESTOR WERE RESUMED. (2) Physical deconditioning Status: Acute (3) PAD (peripheral artery disease) Status: Acute (4) Hyperglycemia Status: Acute (5) GERD (gastroesophageal reflux disease) Qualifiers: Esophagitis presence: esophagitis presence not specified Qualified Code(s): K21.9 - Gastro-esophageal reflux disease without esophagitis Status: Chronic (6) Dyslipidemia Status: Chronic (7) Hypertension Qualifiers: Hypertension type: primary hypertension Qualified Code(s): I10 - Essential (primary) hypertension Status: Chronic - Allergies Allergies/Adverse Reactions: Allergies Allergy/AdvReac Type Severity Reaction Status Date / Time Penicillins Allergy Mild Verified 12/25/18 19:56 Sulfa (Sulfonamide Allergy Mild Verified 12/25/18 19:56 Antibiotics) [SULFA]
[2022-05-19] MEDS: SNACK - Diabetic Appropriate PO SCH ×2 (04:09→20:47)
[2022-05-19 06:17] LABS: BASOPHILS # (AUTO) 0.1 X10^3/uL (0.0-0.1); BASOPHILS % (AUTO) 0.4 % (0.2-1.0); EOSINOPHILS % (AUTO) 0.3 % (0.9-2.9); HEMATOCRIT 35.7 % (42.0-54.0); HEMOGLOBIN 12.5 g/dL (13.5-18.0); LYMPHOCYTES # (AUTO) 2.3 X10^3/uL (1.3-2.9); LYMPHOCYTES % (AUTO) 15.2 % (21.0-51.0); MEAN CORPUSCULAR HEMOGLOBIN 30.2 pg (27.0-34.0); MEAN CORPUSCULAR HGB CONC 34.9 g/dL (33.0-35.0); MEAN CORPUSCULAR VOLUME 86.3 fL (80.0-100.0); MEAN PLATELET VOLUME 6.9 fL (7.4-11.0); MONOCYTES # (AUTO) 1.3 x10^3/uL (0.3-0.8); MONOCYTES % (AUTO) 8.8 % (0.0-13.0); NEUTROPHILS # (AUTO) 11.2 x10^3/uL (2.2-4.8); NEUTROPHILS % (AUTO) 75.3 % (42.0-75.0); RED BLOOD COUNT 4.13 X10^6/uL (4.7-6.0); RED CELL DISTRIBUTION WIDTH 13.6 % (11.6-16.5); WHITE BLOOD COUNT 14.9 X10^3/uL (3.6-10.0)
[2022-05-19 06:30] LABS: ALANINE AMINOTRANSFERASE 12 Units/L (12-78); ALBUMIN 2.7 g/dL (3.4-5.0); ALKALINE PHOSPHATASE 91 Units/L (46-116); ASPARTATE AMINO TRANSFERASE 15 Units/L (15-37); BLOOD UREA NITROGEN 19 mg/dL (7-18); CARBON DIOXIDE 27.2 mmol/L (21-32); CHLORIDE 96 mmol/L (98-107); CREATININE 1.04 mg/dL (0.70-1.30); SODIUM 130 mmol/L (136-145); TOTAL PROTEIN 6.6 g/dL (6.4-8.2); eGFR NON BLACK RACES > 60 (>60)
[2022-05-19] MEDS ORDERED: PHARMACY COMMENT IV NR (08:30)
[2022-05-19 09:10] LABS: CREATININE 1.06 mg/dL (0.70-1.30); VANCOMYCIN,TROUGH 16.1 ug/mL (15-20)
[2022-05-19] MEDS: VANCOMYCIN IV *PREMIX 1 G/200 ML BAG 1 G/200 ML PIGGYBACK IV SCH ×2 (09:40→21:46)
[2022-05-19] MEDS: ACTOS PO SCH (09:40)
[2022-05-19] MEDS: LOPRESSOR TAB 25 MG PO SCH ×2 (09:41→21:48)
[2022-05-19] MEDS: LOVENOX INJ 40 MG SYR SC SCH (09:41)
[2022-05-19] MEDS: PEPCID TAB 20 MG PO SCH ×2 (09:41→21:48)
--- NOTE | 2022-05-19 10:00 | DR.PROGNOT ---
HOSPITAL PROGRESS NOTE Progress Note for Day of: Progress Note Date: 05/19/22 Chief Complaint Chief Complaint: no changes in general condition. BS is fairly controlled . Past Medical Family Social History Allergies: Allergies Penicillins Allergy (Mild, Verified 12/25/18 19:56) Sulfa (Sulfonamide Antibiotics) [SULFA] Allergy (Mild, Verified 12/25/18 19:56) Vital Signs Vital Signs: Temperature 98.7 F Pulse Rate [Brachial] 68 Pulse Rate 83 Respiratory Rate 20 Blood Pressure [Left Arm] 120/57 Blood Pressure [Right Arm] 135/91 Blood Pressure 146/88 O2 Sat by Pulse Oximetry 96 Physical Exam Oriented: Normal Eyes: Normal Ear: Normal Nose: Normal Throat: Normal Cardiovascular: Normal : Normal GI:Auscultation: Normal GI:Palpation: Normal GI: Tenderness: Normal Skin: Other (4 x 3 cm ulcerated skin dorsal Lt foot with associated cellulitis . gangrenous middle toe ) Musculoskeletal: Right, Left, Foot and Tender Psychiatric: Normal Mood Description: Calm Affect: Normal Speech Pattern: Clear Laboratory and Diagnostics Result Diagrams: 05/19/22 05:35 05/19/22 08:28 Labs: 05/17/22 19:33 Foot - Left Wound Gram Stain - Final 05/17/22 19:33 Foot - Left Wound Culture - Preliminary Laboratory WBC 14.9 X10^3/uL (3.6-10.0) H 05/19/22 05:35 RBC 4.13 X10^6/uL (4.7-6.0) L 05/19/22 05:35 Hgb 12.5 g/dL (13.5-18.0) L 05/19/22 05:35 Hct 35.7 % (42.0-54.0) L 05/19/22 05:35 MCV 86.3 fL (80.0-100.0) 05/19/22 05:35 MCH 30.2 pg (27.0-34.0) 05/19/22 05:35 MCHC 34.9 g/dL (33.0-35.0) 05/19/22 05:35 RDW 13.6 % (11.6-16.5) 05/19/22 05:35 Plt Count 256 X10^3/uL (150.0-450.0) 05/19/22 05:35 MPV 6.9 fL (7.4-11.0) L 05/19/22 05:35 Neut % (Auto) 75.3 % (42.0-75.0) H 05/19/22 05:35 Lymph % (Auto) 15.2 % (21.0-51.0) L 05/19/22 05:35 [place] % (Auto) 8.8 % (0.0-13.0) 05/19/22 05:35 Eos % (Auto) 0.3 % (0.9-2.9) L 05/19/22 05:35 Baso % (Auto) 0.4 % (0.2-1.0) 05/19/22 05:35 Neut # (Auto) 11.2 x10^3/uL (2.2-4.8) H 05/19/22 05:35 Lymph # (Auto) 2.3 X10^3/uL (1.3-2.9) 05/19/22 05:35 [place] # (Auto) 1.3 x10^3/uL (0.3-0.8) H 05/19/22 05:35 Eos # (Auto) 0.0 x10^3/uL (0.0-0.2) 05/19/22 05:35 Baso # (Auto) 0.1 X10^3/uL (0.0-0.1) 05/19/22 05:35 Absolute Nucleated RBC 0.0 /100WBC 05/19/22 05:35 Sodium 130 mmol/L (136-145) L 05/19/22 05:35 Corrected Sodium TNP 05/19/22 05:35 Potassium 4.4 mmol/L (3.5-5.1) 05/19/22 05:35 Chloride 96 mmol/L (98-107) L 05/19/22 05:35 Carbon Dioxide 27.2 mmol/L (21-32) 05/19/22 05:35 BUN 19 mg/dL (7-18) H 05/19/22 05:35 Creatinine 1.06 mg/dL (0.70-1.30) 05/19/22 08:28 Est GFR (MDRD) Af Amer > 60 (>60) 05/19/22 05:35 Est GFR (MDRD) Non-Af > 60 (>60) 05/19/22 05:35 Glucose 110 mg/dL (65-99) H 05/19/22 05:35 POC Glucose (mg/dL) 118 mg/dL (65-99) H 05/19/22 05:19 Calcium 9.0 mg/dL (8.5-10.1) 05/19/22 05:35 Corrected Calcium 10.0 mg/dL (8.5-10.1) 05/19/22 05:35 Total Bilirubin 0.80 mg/dL (0.2-1.0) 05/19/22 05:35 AST 15 Units/L (15-37) 05/19/22 05:35 ALT 12 Units/L (12-78) 05/19/22 05:35 Alkaline Phosphatase 91 Units/L (46-116) 05/19/22 05:35 Total Protein 6.6 g/dL (6.4-8.2) 05/19/22 05:35 Albumin 2.7 g/dL (3.4-5.0) L 05/19/22 05:35 Globulin 3.9 g/dL (2.5-4.5) 05/19/22 05:35 Albumin/Globulin Ratio 0.7 Ratio (1.1-2.1) L 05/19/22 05:35 Vancomycin Trough 16.1 ug/mL (15-20) 05/19/22 08:28 Radiology Reviewed: Yes Rhythm: NSR Assessment and Plan 1: diabetic Lt foot ulcer . gangrene Lt 3 ed toe . DM wit Neuropathy . same IV Vancomycin and local care to have MRI of the Lt foot looking for osteomyelitis or deep aqbscess Problem Patient Problems: Patient Problems (Updated 05/18/22 @ 23:12 by Umberto Mack) Physical deconditioning (Acute) R53.81 Hyperglycemia (Acute) R73.9 PAD (peripheral artery disease) (Acute) I73.9 Cellulitis of both feet (Acute) L03.115, L03.116 GERD (gastroesophageal reflux disease) (Chronic) K21.9 Dyslipidemia (Chronic) E78.5 Hypertension (Chronic) I10
[2022-05-19] MEDS: NS 1,000 ML IV 1,000 ML IV SCH (13:30)
--- NOTE | 2022-05-19 21:32 | PCM.PROG ---
Progress Note - Progress Note for Day of Date of Exam: 05/19/22 - Subjective Subjective: IS A 76 YEAR OLD PATIENT OF . HE IS CURRENTLY INPATIENT STATUS FOR TREATMENT OF DECONDITIONING, PERIPHERAL ARTERIAL DISEASE, CELLULITIS OF BILATERAL LOWER EXTREMITIES, HYPERGLYCEMIA. TODAY, HE IS ALERT AND ORIENTED, LYING IN BED ON MORNING ROUNDS. HE CONTINUES WITH COMPLAINTS OF GENERALIZED WEAKNESS AND INTERMITTENT PAIN OF BILATERAL FEET. UPON EXAMINATION, HEART IS REGULAR IN RATE AND RHYTHM. BILATERAL LUNGS ARE NOTED WITH DIMINISHED LUNGS THROUGHOUT. ABDOMEN IS ROUND, SOFT, AND NON-TENDER WITH NORMAL BOWEL SOUNDS NOTED IN ALL QUADRANTS. PATIENT IS NOTED TO HAVE MULTIPLE WOUNDS TO BILATERAL FEET. THERE ARE GANGRENOUS CHANGES OF THE MIDDLE TOES WITH ASSOCIATED CELLULITIS OF THE FOOT AND ULCERS ON THE DORSAL FOOT, DOWN THROUGH THE SUBCUTANEOUS TISSUE AND EXPOSING THE UNDERNEATH STRUCTURES. HE HAS CHRONIC SKIN CHANGES ON BOTH LEGS. THERE WAS ALSO ERYTHEMA AND MILD EDEMA NOTED TO LOWER EXTREMITIES. HIS PMH INCLUDES: ARTHRITIS, DM II, DYSLIPIDEMIA, HTN, APPENDECTOM Y, CABG, CHOLECYSTECTOMY, AND TONSILLECTOMY. ON ARRIVAL TO THE ER, HIS VITALS WERE: 98.7-68-20-96%-120/57. LABS WERE OBTAINED. WBC 14.9, RBC 4.13, HGB 12.5, HCT 35.7, PLT COUNT 256, SODIUM 130. [PTASSOI, 4.4, CHLORIDE 96, BUN 19, CREATININE 1.04, GLUCOSE 110, AST 15, ALT 12, ALK PHOS 91, TOTAL PROTEIN 6.6, ALBUMIN 2.7. WOUND CULTURE OF THE LEFT FOOT IS PENDING. HE IS CURRENTLY RECEIVING VANCOMYCIN 1G IV Q12H, LOVENOX 40MG SC DAILY, OTBS ACHS, HUMULIN R SLIDING SCALE. HIS HOME MEDICATIONS OF PEPCID, LOPRESSOR, ACTOS, AND CRESTOR WERE RESUMED. CONSTULTED WITH PATIENT THIS MORNING AND PLANS TO OBTAIN A LEFT LOWER EXTREMITY MRI TO RULE OUT OSTEOMYELITIS OR DEEP ABSCESS. WE WILL HAVE PHYSICAL THERAPY EVALUATE PATIENT. OTHERWISE, WE WILL FOLLOW-UP WITH AM LABS AND CONTINUE TO MONITOR. TIME SPENT ON CLINICAL ASSESSMENT, REVIEWING LABS AND IMAGING, DECISION MAKING, AND DOCUMENTATION GREATER THAN 45 MINUTES. - Past Medical Family Social History Allergies: Allergies Penicillins Allergy (Mild, Verified 12/25/18 19:56) Sulfa (Sulfonamide Antibiotics) [SULFA] Allergy (Mild, Verified 12/25/18 19:56) - Vital Signs and I&O's Vital Signs: Temperature 98.9 F Pulse Rate [Brachial] 73 Pulse Rate 83 Respiratory Rate 18 Blood Pressure [Left Arm] 126/54 Blood Pressure [Right Arm] 135/91 Blood Pressure 146/88 O2 Sat by Pulse Oximetry 98 Intake and Output: Intake & Output 05/17/22 05/18/22 05/19/22 05/20/22 11:59 11:59 11:59 11:59 Intake Total 0 / 0 1969 1024 / 1024 Balance 0 / 0 1969 1024 / 1024 - Physical Exam Oriented: Normal Eyes: Normal Ear: Normal Nose: Normal Throat: Normal Cardiovascular: Normal : Normal Auscultation: Bowel Sounds: Normal Tenderness: Normal Skin: Other (4 x 3 cm ulcerated skin dorsal Lt foot with associated cellulitis . gangrenous middle toe) Musculoskeletal: Right, Left, Foot, Tender Psychiatric: Normal Mood Description: Calm Affect: Normal Speech Pattern: Clear - Laboratory and Diagnostics Result Diagrams: 05/19/22 05:35 05/19/22 08:28 Labs: 05/17/22 19:33 Foot - Left Wound Gram Stain - Final 05/17/22 19:33 Foot - Left Wound Culture - Preliminary Laboratory WBC 14.9 X10^3/uL (3.6-10.0) H 05/19/22 05:35 RBC 4.13 X10^6/uL (4.7-6.0) L 05/19/22 05:35 Hgb 12.5 g/dL (13.5-18.0) L 05/19/22 05:35 Hct 35.7 % (42.0-54.0) L 05/19/22 05:35 MCV 86.3 fL (80.0-100.0) 05/19/22 05:35 MCH 30.2 pg (27.0-34.0) 05/19/22 05:35 MCHC 34.9 g/dL (33.0-35.0) 05/19/22 05:35 RDW 13.6 % (11.6-16.5) 05/19/22 05:35 Plt Count 256 X10^3/uL (150.0-450.0) 05/19/22 05:35 MPV 6.9 fL (7.4-11.0) L 05/19/22 05:35 Neut % (Auto) 75.3 % (42.0-75.0) H 05/19/22 05:35 Lymph % (Auto) 15.2 % (21.0-51.0) L 05/19/22 05:35 [place] % (Auto) 8.8 % (0.0-13.0) 05/19/22 05:35 Eos % (Auto) 0.3 % (0.9-2.9) L 05/19/22 05:35 Baso % (Auto) 0.4 % (0.2-1.0) 05/19/22 05:35 Neut # (Auto) 11.2 x10^3/uL (2.2-4.8) H 05/19/22 05:35 Lymph # (Auto) 2.3 X10^3/uL (1.3-2.9) 05/19/22 05:35 [place] # (Auto) 1.3 x10^3/uL (0.3-0.8) H 05/19/22 05:35 Eos # (Auto) 0.0 x10^3/uL (0.0-0.2) 05/19/22 05:35 Baso # (Auto) 0.1 X10^3/uL (0.0-0.1) 05/19/22 05:35 Absolute Nucleated RBC 0.0 /100WBC 05/19/22 05:35 Sodium 130 mmol/L (136-145) L 05/19/22 05:35 Corrected Sodium TNP 05/19/22 05:35 Potassium 4.4 mmol/L (3.5-5.1) 05/19/22 05:35 Chloride 96 mmol/L (98-107) L 05/19/22 05:35 Carbon Dioxide 27.2 mmol/L (21-32) 05/19/22 05:35 BUN 19 mg/dL (7-18) H 05/19/22 05:35 Creatinine 1.06 mg/dL (0.70-1.30) 05/19/22 08:28 Est GFR (MDRD) Af Amer > 60 (>60) 05/19/22 05:35 Est GFR (MDRD) Non-Af > 60 (>60) 05/19/22 05:35 Glucose 110 mg/dL (65-99) H 05/19/22 05:35 POC Glucose (mg/dL) 239 mg/dL (65-99) H 05/19/22 15:52 Calcium 9.0 mg/dL (8.5-10.1) 05/19/22 05:35 Corrected Calcium 10.0 mg/dL (8.5-10.1) 05/19/22 05:35 Total Bilirubin 0.80 mg/dL (0.2-1.0) 05/19/22 05:35 AST 15 Units/L (15-37) 05/19/22 05:35 ALT 12 Units/L (12-78) 05/19/22 05:35 Alkaline Phosphatase 91 Units/L (46-116) 05/19/22 05:35 Total Protein 6.6 g/dL (6.4-8.2) 05/19/22 05:35 Albumin 2.7 g/dL (3.4-5.0) L 05/19/22 05:35 Globulin 3.9 g/dL (2.5-4.5) 05/19/22 05:35 Albumin/Globulin Ratio 0.7 Ratio (1.1-2.1) L 05/19/22 05:35 Vancomycin Trough 16.1 ug/mL (15-20) 05/19/22 08:28 - Plan (1) Cellulitis of both feet Status: Acute Plan: CONSULT GENERAL SURGERY, VANCOMYCIN 1G IV Q12H, LOVENOX 40MG SC DAILY, OTB S ACHS, HUMULIN R SLIDING SCALE. HIS HOME MEDICATIONS OF PEPCID, LOPRESSOR, ACTOS, AND CRESTOR WERE RESUMED. OBTAIN LLE MRI (2) Physical deconditioning Status: Acute (3) PAD (peripheral artery disease) Status: Acute (4) Hyperglycemia Status: Acute (5) GERD (gastroesophageal reflux disease) Status: Chronic Qualifiers: Esophagitis presence: esophagitis presence not specified Qualified Code(s): K21.9 - Gastro-esophageal reflux disease without esophagitis (6) Dyslipidemia Status: Chronic (7) Hypertension Status: Chronic Qualifiers: Hypertension type: primary hypertension Qualified Code(s): I10 - Essential (primary) hypertension
[2022-05-19] MEDS: CRESTOR TAB 10 MG PO SCH (21:48)
[2022-05-20] MEDS: NS 1,000 ML IV 1,000 ML IV SCH ×3 (01:37→21:54)
[2022-05-20] MEDS ORDERED: TYLENOL 325 MG TAB PO ONE (04:47)
[2022-05-20] MEDS: TYLENOL 325 MG TAB PO PRN ×2 (05:16→20:51)
[2022-05-20 05:28] LABS: BASOPHILS % (AUTO) 0.3 % (0.2-1.0); EOSINOPHILS # (AUTO) 0.1 x10^3/uL (0.0-0.2); EOSINOPHILS % (AUTO) 0.4 % (0.9-2.9); HEMATOCRIT 36.8 % (42.0-54.0); HEMOGLOBIN 12.8 g/dL (13.5-18.0); LYMPHOCYTES # (AUTO) 1.7 X10^3/uL (1.3-2.9); LYMPHOCYTES % (AUTO) 11.2 % (21.0-51.0); MEAN CORPUSCULAR HEMOGLOBIN 30.1 pg (27.0-34.0); MEAN CORPUSCULAR HGB CONC 34.9 g/dL (33.0-35.0); MEAN CORPUSCULAR VOLUME 86.3 fL (80.0-100.0); MONOCYTES # (AUTO) 1.1 x10^3/uL (0.3-0.8); MONOCYTES % (AUTO) 7.2 % (0.0-13.0); NEUTROPHILS # (AUTO) 12.1 x10^3/uL (2.2-4.8); NEUTROPHILS % (AUTO) 80.9 % (42.0-75.0); RED BLOOD COUNT 4.27 X10^6/uL (4.7-6.0); RED CELL DISTRIBUTION WIDTH 13.6 % (11.6-16.5)
[2022-05-20 05:43] LABS: ALANINE AMINOTRANSFERASE 16 Units/L (12-78); ALKALINE PHOSPHATASE 114 Units/L (46-116); ASPARTATE AMINO TRANSFERASE 13 Units/L (15-37); BLOOD UREA NITROGEN 22 mg/dL (7-18); CALCIUM 9.1 mg/dL (8.5-10.1); CARBON DIOXIDE 25.1 mmol/L (21-32); CHLORIDE 99 mmol/L (98-107); COR CA(FOR HYPOALB) 9.9 mg/dL (8.5-10.1); COR NA(FOR HYPERGLY) 135 mmol/L (136-145); CREATININE 1.03 mg/dL (0.70-1.30); SODIUM 134 mmol/L (136-145); TOTAL PROTEIN 7.4 g/dL (6.4-8.2); eGFR NON BLACK RACES > 60 (>60)
[2022-05-20] MEDS: VANCOMYCIN IV *PREMIX 1 G/200 ML BAG 1 G/200 ML PIGGYBACK IV SCH ×2 (08:41→20:50)
[2022-05-20] MEDS: PEPCID TAB 20 MG PO SCH ×2 (08:41→20:51)
[2022-05-20] MEDS: LOVENOX INJ 40 MG SYR SC SCH (08:41)
[2022-05-20] MEDS ORDERED: ZOSYN VIAL 3.375 GRAMS 3.375 G in NS 100 ML IV 100 ML IV SCH (08:43)
[2022-05-20] MEDS: ACTOS PO SCH (08:55)
[2022-05-20] MEDS: LOPRESSOR TAB 25 MG PO SCH ×2 (09:05→20:51)
[2022-05-20] MEDS: GLUCOPHAGE XR 24-HR PO SCH (09:20)
[2022-05-20 09:50] LABS: BILIRUBIN,URINE NEGATIVE (NEGATIVE); BLOOD/HEMOGLOBIN,URINE NEGATIVE (NEGATIVE); GLUCOSE, URINE NEGATIVE (NEGATIVE); KETONES,URINE NEGATIVE (NEGATIVE); LEUKOCYTE ESTERASE ,URINE NEGATIVE (NEGATIVE); NITRITES,URINE NEGATIVE (NEGATIVE); PROTEIN,URINE 2+ (NEGATIVE); UROBILINOGEN,URINE NORMAL (NORMAL)
--- NOTE | 2022-05-20 10:01 | DR.PROGNOT ---
HOSPITAL PROGRESS NOTE Progress Note for Day of: Progress Note Date: 05/20/22 Chief Complaint Chief Complaint: no changes in general condition Lt foot dry gangrene is involving 3ed and 4th toes BS is fairly controlled .A1c 8.4 Past Medical Family Social History Past Med/Fam/Surg Hx: No changes since H&P Allergies: Allergies Penicillins Allergy (Mild, Verified 12/25/18 19:56) Sulfa (Sulfonamide Antibiotics) [SULFA] Allergy (Mild, Verified 12/25/18 19:56) Review Of Systems ROS: No change since H&P Vital Signs Vital Signs: Temperature 97.8 F Pulse Rate [Brachial] 60 Pulse Rate 83 Respiratory Rate 18 Blood Pressure [Left Arm] 111/57 Blood Pressure [Right Arm] 135/91 Blood Pressure 146/88 O2 Sat by Pulse Oximetry 98 Physical Exam Oriented: Normal Eyes: Normal Ear: Normal Nose: Normal Throat: Normal Cardiovascular: Normal : Normal GI:Auscultation: Normal GI:Palpation: Normal GI: Tenderness: Normal Skin: Other (4 x 3 cm ulcerated skin dorsal Lt foot with associated erythema , no abscess or necrosis . gangrenous middle and 4th toe . distal pulses + with Dopler ) Musculoskeletal: Right, Left, Foot and Tender Psychiatric: Normal Mood Description: Calm Affect: Normal Speech Pattern: Clear Laboratory and Diagnostics Result Diagrams: 05/20/22 04:46 05/20/22 04:46 Labs: 05/17/22 19:33 Foot - Left Wound Gram Stain - Final 05/17/22 19:33 Foot - Left Wound Culture - Preliminary Laboratory WBC 15.0 X10^3/uL (3.6-10.0) H 05/20/22 04:46 RBC 4.27 X10^6/uL (4.7-6.0) L 05/20/22 04:46 Hgb 12.8 g/dL (13.5-18.0) L 05/20/22 04:46 Hct 36.8 % (42.0-54.0) L 05/20/22 04:46 MCV 86.3 fL (80.0-100.0) 05/20/22 04:46 MCH 30.1 pg (27.0-34.0) 05/20/22 04:46 MCHC 34.9 g/dL (33.0-35.0) 05/20/22 04:46 RDW 13.6 % (11.6-16.5) 05/20/22 04:46 Plt Count 313 X10^3/uL (150.0-450.0) 05/20/22 04:46 MPV 7.0 fL (7.4-11.0) L 05/20/22 04:46 Neut % (Auto) 80.9 % (42.0-75.0) H 05/20/22 04:46 Lymph % (Auto) 11.2 % (21.0-51.0) L 05/20/22 04:46 [place] % (Auto) 7.2 % (0.0-13.0) 05/20/22 04:46 Eos % (Auto) 0.4 % (0.9-2.9) L 05/20/22 04:46 Baso % (Auto) 0.3 % (0.2-1.0) 05/20/22 04:46 Neut # (Auto) 12.1 x10^3/uL (2.2-4.8) H 05/20/22 04:46 Lymph # (Auto) 1.7 X10^3/uL (1.3-2.9) 05/20/22 04:46 [place] # (Auto) 1.1 x10^3/uL (0.3-0.8) H 05/20/22 04:46 Eos # (Auto) 0.1 x10^3/uL (0.0-0.2) 05/20/22 04:46 Baso # (Auto) 0.0 X10^3/uL (0.0-0.1) 05/20/22 04:46 Absolute Nucleated RBC 0.0 /100WBC 05/20/22 04:46 Sodium 134 mmol/L (136-145) L 05/20/22 04:46 Corrected Sodium 135 mmol/L (136-145) L 05/20/22 04:46 Potassium 4.4 mmol/L (3.5-5.1) 05/20/22 04:46 Chloride 99 mmol/L (98-107) 05/20/22 04:46 Carbon Dioxide 25.1 mmol/L (21-32) 05/20/22 04:46 BUN 22 mg/dL (7-18) H 05/20/22 04:46 Creatinine 1.03 mg/dL (0.70-1.30) 05/20/22 04:46 Est GFR (MDRD) Af Amer > 60 (>60) 05/20/22 04:46 Est GFR (MDRD) Non-Af > 60 (>60) 05/20/22 04:46 Glucose 142 mg/dL (65-99) H 05/20/22 04:46 POC Glucose (mg/dL) 139 mg/dL (65-99) H 05/20/22 05:26 Hemoglobin A1c 8.4 % 05/20/22 04:46 Calcium 9.1 mg/dL (8.5-10.1) 05/20/22 04:46 Corrected Calcium 9.9 mg/dL (8.5-10.1) 05/20/22 04:46 Total Bilirubin 0.70 mg/dL (0.2-1.0) 05/20/22 04:46 AST 13 Units/L (15-37) L 05/20/22 04:46 ALT 16 Units/L (12-78) 05/20/22 04:46 Alkaline Phosphatase 114 Units/L (46-116) 05/20/22 04:46 Total Protein 7.4 g/dL (6.4-8.2) 05/20/22 04:46 Albumin 3.0 g/dL (3.4-5.0) L 05/20/22 04:46 Globulin 4.4 g/dL (2.5-4.5) 05/20/22 04:46 Albumin/Globulin Ratio 0.7 Ratio (1.1-2.1) L 05/20/22 04:46 Vancomycin Trough 16.1 ug/mL (15-20) 05/19/22 08:28 Assessment and Plan 1: diabetic Lt foot ulcer . gangrene Lt 3 ed and 4th toe .looks like dry gangrene DM with Neuropathy . same IV Vancomycin and local care to have MRI of the Lt foot looking for osteomyelitis or deep abscess Problem Patient Problems: Patient Problems (Updated 05/18/22 @ 23:12 by Umberto Mack) Physical deconditioning (Acute) R53.81 Hyperglycemia (Acute) R73.9 PAD (peripheral artery disease) (Acute) I73.9 Cellulitis of both feet (Acute) L03.115, L03.116 GERD (gastroesophageal reflux disease) (Chronic) K21.9 Dyslipidemia (Chronic) E78.5 Hypertension (Chronic) I10
[2022-05-20 10:07] LABS: APPEARANCE,URINE CLEAR (CLEAR); COLOR,URINE YELLOW (YELLOW)
[2022-05-20 10:09] LABS: RBC,URINE NONE SEEN /HPF (0-3)
[2022-05-20 10:10] LABS: BACTERIA,URINE TRACE /HPF (NEGATIVE); SQUAMOUS EPITHELIAL CELL,UR RARE /HPF (NEGATIVE)
[2022-05-20] MEDS: NovoLIN R (or HumuLIN R) SUBCUT PRN ×2 (11:37→22:20)
[2022-05-20] MEDS: MERREM VIAL 500 MG in NS 100 ML IV 100 ML IV SCH ×2 (14:21→21:55)
[2022-05-20] MEDS: CRESTOR TAB 10 MG PO SCH (20:50)
[2022-05-20] MEDS: SNACK - Diabetic Appropriate PO SCH (20:51)
[2022-05-21] MEDS: TYLENOL 325 MG TAB PO PRN (00:49)
[2022-05-21] MEDS: NS 1,000 ML IV 1,000 ML IV SCH ×3 (04:46→21:23)
[2022-05-21] MEDS: MERREM VIAL 500 MG in NS 100 ML IV 100 ML IV SCH ×3 (05:20→21:23)
[2022-05-21 06:22] LABS: BASOPHILS # (AUTO) 0.1 X10^3/uL (0.0-0.1); BASOPHILS % (AUTO) 0.5 % (0.2-1.0); EOSINOPHILS # (AUTO) 0.1 x10^3/uL (0.0-0.2); EOSINOPHILS % (AUTO) 0.4 % (0.9-2.9); HEMATOCRIT 40.4 % (42.0-54.0); HEMOGLOBIN 13.8 g/dL (13.5-18.0); LYMPHOCYTES # (AUTO) 2.2 X10^3/uL (1.3-2.9); LYMPHOCYTES % (AUTO) 14.4 % (21.0-51.0); MEAN CORPUSCULAR HEMOGLOBIN 29.8 pg (27.0-34.0); MEAN CORPUSCULAR HGB CONC 34.1 g/dL (33.0-35.0); MEAN CORPUSCULAR VOLUME 87.5 fL (80.0-100.0); MEAN PLATELET VOLUME 6.8 fL (7.4-11.0); MONOCYTES # (AUTO) 1.2 x10^3/uL (0.3-0.8); MONOCYTES % (AUTO) 7.9 % (0.0-13.0); NEUTROPHILS # (AUTO) 11.9 x10^3/uL (2.2-4.8); NEUTROPHILS % (AUTO) 76.8 % (42.0-75.0); RED BLOOD COUNT 4.61 X10^6/uL (4.7-6.0); RED CELL DISTRIBUTION WIDTH 13.8 % (11.6-16.5); WHITE BLOOD COUNT 15.5 X10^3/uL (3.6-10.0)
[2022-05-21 06:38] LABS: ALANINE AMINOTRANSFERASE 14 Units/L (12-78); ALBUMIN 3.1 g/dL (3.4-5.0); ALKALINE PHOSPHATASE 128 Units/L (46-116); ASPARTATE AMINO TRANSFERASE 16 Units/L (15-37); BLOOD UREA NITROGEN 20 mg/dL (7-18); CALCIUM 9.3 mg/dL (8.5-10.1); CARBON DIOXIDE 24.5 mmol/L (21-32); CHLORIDE 100 mmol/L (98-107); SODIUM 136 mmol/L (136-145); TOTAL PROTEIN 8.4 g/dL (6.4-8.2); eGFR NON BLACK RACES > 60 (>60)
[2022-05-21] MEDS: ACTOS PO SCH (08:44)
[2022-05-21] MEDS: PEPCID TAB 20 MG PO SCH ×2 (08:46→21:23)
[2022-05-21] MEDS: GLUCOPHAGE XR 24-HR PO SCH (08:47)
[2022-05-21] MEDS: LOPRESSOR TAB 25 MG PO SCH ×2 (08:48→21:22)
[2022-05-21] MEDS: LOVENOX INJ 40 MG SYR SC SCH (08:49)
[2022-05-21 09:21] LABS: CREATININE 1.07 mg/dL (0.70-1.30); VANCOMYCIN,TROUGH 19.9 ug/mL (15-20)
[2022-05-21] MEDS: VANCOMYCIN IV *PREMIX 1 G/200 ML BAG 1 G/200 ML PIGGYBACK IV SCH ×2 (09:52→21:23)
--- NOTE | 2022-05-21 10:11 | MRI ---
HISTORYLEFT FOOT WOUND ABOVE GREAT TOE AND 3RD AND 4TH TOESSTUDYEXT LOWER NON-JOINT W/O CONCOMPARISONLeft foot radiograph from 05/17/2022. Only the report is available at the time of this dictation (images not available).TECHNIQUEMultiplanar multisequence MRI of the left foot without contrast were obtained per protocol.FINDINGSLack of contrast limits evaluation. Mild motion artifact limits evaluation. Soft tissue ulcer at the dorsal aspect of forefoot at the level of the 3rd and 4th digits image 17 series 601 and image 11 series 1101. Mild scattered subcutaneous edema. There is plantar muscle edema. No collection or abscess within limits this noncontrast study. There is an ulceration in the soft tissues at the dorsal aspect of the distal great toe head and neck image 18 series 1101. Bone marrow edema pattern at the dorsal aspect of the great toe metatarsal head and at the metatarsal neck. The T1 signal is hazy and ill-defined rather than low signal and geographic. See image 6 series 601. There is normal T1 global bone marrow signal. No acute fracture, malalignment, or aggressive osseous lesion. No significant joint effusion. The visualized flexor and extensor tendons appears normal. No evidence of tenosynovitis. The visualized plantar fascia appears normal.IMPRESSIONSoft tissue ulcer at the dorsal aspect of the 3rd and 4th phalangeal webspace and dorsal aspect of the great toe distal metatarsal. No underlying abscess identified within limits of this noncontrast study.Bone marrow edema pattern at neck and dorsal head of the great toe metatarsal is likely reactive rather than osteomyelitis.Electronically signed by: Barron Buenrostro (May 21, 2022 10:10:25)
[2022-05-21] MEDS: CRESTOR TAB 10 MG PO SCH (21:22)
[2022-05-21] MEDS: SNACK - Diabetic Appropriate PO SCH (21:23)
[2022-05-21] MEDS: NovoLIN R (or HumuLIN R) SUBCUT PRN (21:37)
[2022-05-22] MEDS: NS 1,000 ML IV 1,000 ML IV SCH ×3 (05:20→22:04)
[2022-05-22] MEDS: MERREM VIAL 500 MG in NS 100 ML IV 100 ML IV SCH ×3 (05:42→21:51)
[2022-05-22 06:19] LABS: BASOPHILS # (AUTO) 0.1 X10^3/uL (0.0-0.1); BASOPHILS % (AUTO) 0.4 % (0.2-1.0); EOSINOPHILS # (AUTO) 0.2 x10^3/uL (0.0-0.2); EOSINOPHILS % (AUTO) 1.2 % (0.9-2.9); HEMOGLOBIN 10.6 g/dL (13.5-18.0); LYMPHOCYTES # (AUTO) 1.8 X10^3/uL (1.3-2.9); LYMPHOCYTES % (AUTO) 13.5 % (21.0-51.0); MEAN CORPUSCULAR HEMOGLOBIN 29.9 pg (27.0-34.0); MEAN CORPUSCULAR HGB CONC 34.2 g/dL (33.0-35.0); MEAN CORPUSCULAR VOLUME 87.3 fL (80.0-100.0); MONOCYTES # (AUTO) 1.2 x10^3/uL (0.3-0.8); NEUTROPHILS % (AUTO) 75.9 % (42.0-75.0); RED BLOOD COUNT 3.56 X10^6/uL (4.7-6.0); RED CELL DISTRIBUTION WIDTH 13.8 % (11.6-16.5); WHITE BLOOD COUNT 13.2 X10^3/uL (3.6-10.0)
[2022-05-22 06:45] LABS: ALANINE AMINOTRANSFERASE 12 Units/L (12-78); ALBUMIN 2.1 g/dL (3.4-5.0); ALKALINE PHOSPHATASE 99 Units/L (46-116); ASPARTATE AMINO TRANSFERASE 12 Units/L (15-37); BLOOD UREA NITROGEN 16 mg/dL (7-18); CALCIUM 8.5 mg/dL (8.5-10.1); CARBON DIOXIDE 20.7 mmol/L (21-32); CHLORIDE 105 mmol/L (98-107); COR NA(FOR HYPERGLY) 138 mmol/L (136-145); CREATININE 0.79 mg/dL (0.70-1.30); SODIUM 137 mmol/L (136-145); TOTAL PROTEIN 5.9 g/dL (6.4-8.2); eGFR NON BLACK RACES > 60 (>60)
[2022-05-22] MEDS: LOPRESSOR TAB 25 MG PO SCH ×2 (08:53→21:51)
[2022-05-22] MEDS: PEPCID TAB 20 MG PO SCH ×2 (08:53→21:51)
[2022-05-22] MEDS: GLUCOPHAGE XR 24-HR PO SCH (08:54)
[2022-05-22] MEDS: ACTOS PO SCH (08:56)
[2022-05-22] MEDS: VANCOMYCIN IV *PREMIX 1 G/200 ML BAG 1 G/200 ML PIGGYBACK IV SCH (08:56)
[2022-05-22] MEDS: LOVENOX INJ 40 MG SYR SC SCH (08:57)
[2022-05-22] MEDS ORDERED: NS 100 ML IV 100 ML ONE (11:14)
--- NOTE | 2022-05-22 15:27 | CT ---
HISTORYISCHEMIC LEFT FOOT. Evaluate peripheral vascular disease.STUDYCTA AORTA WITH RUNOFFCOMPARISONLower extremity CTA 10/22/2019TECHNIQUEMultiple CT axial images of the abdomen, pelvis, and lower extremity runoff were obtained before and after using IV contrast. 3D reconstructions utilizing axial MIPS imaging was performed and reviewed. Dose reduction techniques including Automated Exposure Control (AEC) and adjustment of mA and kV were utilized.Stenoses are measured using NASCET criteria.FINDINGSWithout contrast: Atherosclerotic calcification is present in the coronary arteries, aorta, and major branches.Surgical clips are present in the gallbladder fossa from a cholecystectomy. Tiny calcified stone in the left kidney measures 2 mm.With contrast: Most of the chest was included on the study. Aorta has a normal caliber extending from the aortic valve to the bifurcation in the lower abdomen. No aneurysm, dissection, or stenosis.Pulmonary arteries are identified to segmental branches with no pulmonary emboli.In the abdomen, all 3 mesenteric vessels are patent.Two arteries are present to the right kidney and 1 to the left. Common iliac and external iliac arteries are widely patent. Both internal iliac arteries are widely patent.Left lower extremity: No significant femoropopliteal artery stenosis. The popliteal artery gives rise to 3 branches in the proximal calf. I believe the anterior tibial artery is occluded in the distal calf. Both the posterior tibial artery in the peroneal artery are patent. The peroneal artery gives collateral circulation to the dorsalis pedis.Right lower extremity: I do not believe there is a significant femoral popliteal artery stenosis. Popliteal artery is patent and gives rise to a high origin anterior tibial artery which comes off at the joint surface of the knee. But all 3 branches extend to the foot, the dominant vessel being posterior tibial artery.No lung consolidation to suggest pneumonia. Cardiomegaly is present. No biliary obstruction. No hydronephrosis. No bowel obstruction or free air. No mass or lymphadenopathy.IMPRESSION1. Atherosclerosis with no significant occlusive disease2. Two vessel runoff to the left foot and three-vessel runoff to the right footElectronically signed by: Reggie Lovelace (May 22, 2022 15:25:31)
[2022-05-22] MEDS: NovoLIN R (or HumuLIN R) SUBCUT PRN (15:53)
--- NOTE | 2022-05-22 18:02 | DR.PROGNOT ---
HOSPITAL PROGRESS NOTE Progress Note for Day of: Progress Note Date: 05/22/22 Chief Complaint Chief Complaint: no changes in general condition Lt foot with dry gangrene is involving 3ed and 4th toes and dorsal skin ulceration BS is fairly controlled .A1c 8.4. MRI no clear osteomyelitis or deep abscess . CTA showed no significant occlusive disease . Past Medical Family Social History Past Med/Fam/Surg Hx: No changes since H&P Allergies: Allergies Penicillins Allergy (Mild, Verified 12/25/18 19:56) Sulfa (Sulfonamide Antibiotics) [SULFA] Allergy (Mild, Verified 12/25/18 19:56) Review Of Systems ROS: No change since H&P Vital Signs Vital Signs: Temperature 98.1 F Pulse Rate [Brachial] 60 Pulse Rate 83 Respiratory Rate 20 Blood Pressure [Left Arm] 154/69 Blood Pressure [Right Arm] 135/91 Blood Pressure 146/88 O2 Sat by Pulse Oximetry 98 Physical Exam Oriented: Normal Eyes: Normal Ear: Normal Nose: Normal Throat: Normal Cardiovascular: Normal : Normal GI:Auscultation: Normal GI:Palpation: Normal GI: Tenderness: Normal Skin: Other (4 x 3 cm ulcerated skin dorsal Lt foot with associated erythema , no abscess or necrosis .dry gangrenous middle and 4th toe . distal pulses + with Dopler ) Musculoskeletal: Right, Left, Foot and Tender Psychiatric: Normal Mood Description: Calm Affect: Normal Speech Pattern: Clear Laboratory and Diagnostics Result Diagrams: 05/22/22 05:30 05/22/22 05:30 Labs: 05/20/22 04:30 Blood Blood Culture - Preliminary 05/20/22 04:46 Blood Blood Culture - Preliminary 05/17/22 19:33 Foot - Left Wound Gram Stain - Final 05/17/22 19:33 Foot - Left Wound Culture - Final Proteus Vulgaris Enterococcus Faecalis Laboratory WBC 13.2 X10^3/uL (3.6-10.0) H 05/22/22 05:30 RBC 3.56 X10^6/uL (4.7-6.0) L 05/22/22 05:30 Hgb 10.6 g/dL (13.5-18.0) L D 05/22/22 05:30 Hct 31.0 % (42.0-54.0) L 05/22/22 05:30 MCV 87.3 fL (80.0-100.0) 05/22/22 05:30 MCH 29.9 pg (27.0-34.0) 05/22/22 05:30 MCHC 34.2 g/dL (33.0-35.0) 05/22/22 05:30 RDW 13.8 % (11.6-16.5) 05/22/22 05:30 Plt Count 293 X10^3/uL (150.0-450.0) 05/22/22 05:30 MPV 7.0 fL (7.4-11.0) L 05/22/22 05:30 Neut % (Auto) 75.9 % (42.0-75.0) H 05/22/22 05:30 Lymph % (Auto) 13.5 % (21.0-51.0) L 05/22/22 05:30 [place] % (Auto) 9.0 % (0.0-13.0) 05/22/22 05:30 Eos % (Auto) 1.2 % (0.9-2.9) 05/22/22 05:30 Baso % (Auto) 0.4 % (0.2-1.0) 05/22/22 05:30 Neut # (Auto) 10.0 x10^3/uL (2.2-4.8) H 05/22/22 05:30 Lymph # (Auto) 1.8 X10^3/uL (1.3-2.9) 05/22/22 05:30 [place] # (Auto) 1.2 x10^3/uL (0.3-0.8) H 05/22/22 05:30 Eos # (Auto) 0.2 x10^3/uL (0.0-0.2) 05/22/22 05:30 Baso # (Auto) 0.1 X10^3/uL (0.0-0.1) 05/22/22 05:30 Absolute Nucleated RBC 0.0 /100WBC 05/22/22 05:30 Sodium 137 mmol/L (136-145) 05/22/22 05:30 Corrected Sodium 138 mmol/L (136-145) 05/22/22 05:30 Potassium 3.5 mmol/L (3.5-5.1) 05/22/22 05:30 Chloride 105 mmol/L (98-107) 05/22/22 05:30 Carbon Dioxide 20.7 mmol/L (21-32) L 05/22/22 05:30 BUN 16 mg/dL (7-18) 05/22/22 05:30 Creatinine 0.79 mg/dL (0.70-1.30) 05/22/22 05:30 Est GFR (MDRD) Af Amer > 60 (>60) 05/22/22 05:30 Est GFR (MDRD) Non-Af > 60 (>60) 05/22/22 05:30 Glucose 123 mg/dL (65-99) H 05/22/22 05:30 POC Glucose (mg/dL) 187 mg/dL (65-99) H 05/22/22 15:32 Hemoglobin A1c 8.4 % 05/20/22 04:46 Calcium 8.5 mg/dL (8.5-10.1) 05/22/22 05:30 Corrected Calcium 10.0 mg/dL (8.5-10.1) 05/22/22 05:30 Total Bilirubin 0.30 mg/dL (0.2-1.0) 05/22/22 05:30 AST 12 Units/L (15-37) L 05/22/22 05:30 ALT 12 Units/L (12-78) 05/22/22 05:30 Alkaline Phosphatase 99 Units/L (46-116) 05/22/22 05:30 Total Protein 5.9 g/dL (6.4-8.2) L 05/22/22 05:30 Albumin 2.1 g/dL (3.4-5.0) L 05/22/22 05:30 Globulin 3.8 g/dL (2.5-4.5) 05/22/22 05:30 Albumin/Globulin Ratio 0.6 Ratio (1.1-2.1) L 05/22/22 05:30 Specimen Type Clean catch urine 05/20/22 09:19 Urine Color Yellow (YELLOW) 05/20/22 09:19 Urine Appearance Clear (CLEAR) 05/20/22 09:19 Urine pH 6.0 (5.0 - 8.0) 05/20/22 09:19 Ur Specific [place] 1.020 (1.000-1.030) 05/20/22 09:19 Urine Protein 2+ (NEGATIVE) 05/20/22 09:19 Urine Glucose (UA) Negative (NEGATIVE) 05/20/22 09:19 Urine Ketones Negative (NEGATIVE) 05/20/22 09:19 Urine Blood Negative (NEGATIVE) 05/20/22 09:19 Urine Nitrite Negative (NEGATIVE) 05/20/22 09:19 Urine Bilirubin Negative (NEGATIVE) 05/20/22 09:19 Urine Urobilinogen Normal (NORMAL) 05/20/22 09:19 Ur Leukocyte Esterase Negative (NEGATIVE) 05/20/22 09:19 Urine RBC None seen /HPF (0-3) 05/20/22 09:19 Urine WBC None seen /HPF (0-5) 05/20/22 09:19 Ur Squamous Epith Cells Rare /HPF (NEGATIVE) 05/20/22 09:19 Urine Bacteria Trace /HPF (NEGATIVE) 05/20/22 09:19 Urine Mucus Few /HPF (NEGATIVE) 05/20/22 09:19 Ur Culture Indicated? No/not indicated 05/20/22 09:19 Vancomycin Trough 19.9 ug/mL (15-20) 05/21/22 08:20 Assessment and Plan 1: diabetic Lt foot ulcer . dry gangrene Lt 3 ed and 4th toe . DM with Neuropathy . same IV Vancomycin and local care wait for clear demarcation and amputation . Problem Patient Problems: Patient Problems (Updated 05/18/22 @ 23:12 by Umberto Mack) Physical deconditioning (Acute) R53.81 Hyperglycemia (Acute) R73.9 PAD (peripheral artery disease) (Acute) I73.9 Cellulitis of both feet (Acute) L03.115, L03.116 GERD (gastroesophageal reflux disease) (Chronic) K21.9 Dyslipidemia (Chronic) E78.5 Hypertension (Chronic) I10
[2022-05-22] MEDS ORDERED: PHARMACY COMMENT IV NR (20:30)
[2022-05-22] MEDS: SNACK - Diabetic Appropriate PO SCH (20:50)
[2022-05-22 20:52] LABS: CREATININE 0.98 mg/dL (0.70-1.30)
[2022-05-22 21:00] LABS: VANCOMYCIN,TROUGH 20.8 ug/mL (15-20)
[2022-05-22] MEDS: CRESTOR TAB 10 MG PO SCH (21:50)
[2022-05-23] MEDS: NS 1,000 ML IV 1,000 ML IV SCH ×2 (05:04→14:11)
[2022-05-23] MEDS: MERREM VIAL 500 MG in NS 100 ML IV 100 ML IV SCH ×3 (05:05→21:04)
[2022-05-23] MEDS ORDERED: VANCOMYCIN IV *PREMIX 750 mg/150 ML BAG 750 MG/150 ML PIGGYBACK IV SCH (06:00)
[2022-05-23 09:19] LABS: BASOPHILS % (AUTO) 0.4 % (0.2-1.0); EOSINOPHILS # (AUTO) 0.2 x10^3/uL (0.0-0.2); EOSINOPHILS % (AUTO) 1.6 % (0.9-2.9); HEMATOCRIT 28.9 % (42.0-54.0); HEMOGLOBIN 9.9 g/dL (13.5-18.0); LYMPHOCYTES # (AUTO) 1.6 X10^3/uL (1.3-2.9); LYMPHOCYTES % (AUTO) 14.1 % (21.0-51.0); MEAN CORPUSCULAR HGB CONC 34.4 g/dL (33.0-35.0); MEAN CORPUSCULAR VOLUME 87.2 fL (80.0-100.0); MEAN PLATELET VOLUME 6.2 fL (7.4-11.0); MONOCYTES # (AUTO) 0.9 x10^3/uL (0.3-0.8); MONOCYTES % (AUTO) 7.9 % (0.0-13.0); NEUTROPHILS # (AUTO) 8.8 x10^3/uL (2.2-4.8); RED BLOOD COUNT 3.31 X10^6/uL (4.7-6.0); RED CELL DISTRIBUTION WIDTH 13.5 % (11.6-16.5); WHITE BLOOD COUNT 11.6 X10^3/uL (3.6-10.0)
[2022-05-23] MEDS: LOVENOX INJ 40 MG SYR SC SCH (09:50)
[2022-05-23] MEDS: ACTOS PO SCH (09:51)
[2022-05-23] MEDS: GLUCOPHAGE XR 24-HR PO SCH (09:52)
[2022-05-23] MEDS: PEPCID TAB 20 MG PO SCH ×2 (09:53→20:57)
[2022-05-23] MEDS: LOPRESSOR TAB 25 MG PO SCH ×2 (09:54→20:56)
[2022-05-23] MEDS: CRESTOR TAB 10 MG PO SCH (20:55)
[2022-05-23] MEDS: SNACK - Diabetic Appropriate PO SCH (20:57)
[2022-05-23] MEDS: NovoLIN R (or HumuLIN R) SUBCUT PRN (21:05)
[2022-05-24] MEDS: NS 1,000 ML IV 1,000 ML IV SCH ×4 (02:30→23:46)
[2022-05-24] MEDS: MERREM VIAL 500 MG in NS 100 ML IV 100 ML IV SCH ×3 (05:18→21:05)
[2022-05-24 06:24] LABS: BASOPHILS # (AUTO) 0.1 X10^3/uL (0.0-0.1); BASOPHILS % (AUTO) 0.7 % (0.2-1.0); EOSINOPHILS # (AUTO) 0.2 x10^3/uL (0.0-0.2); EOSINOPHILS % (AUTO) 1.3 % (0.9-2.9); HEMATOCRIT 28.9 % (42.0-54.0); HEMOGLOBIN 9.9 g/dL (13.5-18.0); LYMPHOCYTES # (AUTO) 1.8 X10^3/uL (1.3-2.9); LYMPHOCYTES % (AUTO) 15.9 % (21.0-51.0); MEAN CORPUSCULAR HEMOGLOBIN 30.2 pg (27.0-34.0); MEAN CORPUSCULAR HGB CONC 34.4 g/dL (33.0-35.0); MEAN CORPUSCULAR VOLUME 87.7 fL (80.0-100.0); MEAN PLATELET VOLUME 7.1 fL (7.4-11.0); MONOCYTES # (AUTO) 0.9 x10^3/uL (0.3-0.8); MONOCYTES % (AUTO) 8.1 % (0.0-13.0); NEUTROPHILS # (AUTO) 8.4 x10^3/uL (2.2-4.8); WHITE BLOOD COUNT 11.4 X10^3/uL (3.6-10.0)
[2022-05-24 06:39] LABS: ALANINE AMINOTRANSFERASE 11 Units/L (12-78); ALKALINE PHOSPHATASE 88 Units/L (46-116); ASPARTATE AMINO TRANSFERASE 17 Units/L (15-37); BLOOD UREA NITROGEN 14 mg/dL (7-18); CALCIUM 7.9 mg/dL (8.5-10.1); CHLORIDE 106 mmol/L (98-107); COR CA(FOR HYPOALB) 9.5 mg/dL (8.5-10.1); SODIUM 139 mmol/L (136-145); TOTAL PROTEIN 5.8 g/dL (6.4-8.2); eGFR NON BLACK RACES > 60 (>60)
[2022-05-24] MEDS: ACTOS PO SCH (08:14)
[2022-05-24] MEDS: GLUCOPHAGE XR 24-HR PO SCH (08:14)
[2022-05-24] MEDS: PEPCID TAB 20 MG PO SCH ×2 (08:14→20:34)
[2022-05-24] MEDS: LOPRESSOR TAB 25 MG PO SCH ×2 (08:15→20:35)
[2022-05-24] MEDS: LOVENOX INJ 40 MG SYR SC SCH (08:15)
[2022-05-24] MEDS ORDERED: PHARMACY COMMENT IV NR (17:30)
[2022-05-24] MEDS: SNACK - Diabetic Appropriate PO SCH (20:34)
[2022-05-24] MEDS: CRESTOR TAB 10 MG PO SCH (20:34)
[2022-05-25] MEDS: MERREM VIAL 500 MG in NS 100 ML IV 100 ML IV SCH ×3 (05:06→21:01)
[2022-05-25 05:32] LABS: BASOPHILS % (AUTO) 0.5 % (0.2-1.0); EOSINOPHILS # (AUTO) 0.2 x10^3/uL (0.0-0.2); EOSINOPHILS % (AUTO) 1.7 % (0.9-2.9); HEMATOCRIT 30.1 % (42.0-54.0); HEMOGLOBIN 10.4 g/dL (13.5-18.0); LYMPHOCYTES # (AUTO) 1.8 X10^3/uL (1.3-2.9); LYMPHOCYTES % (AUTO) 17.9 % (21.0-51.0); MEAN CORPUSCULAR HGB CONC 34.5 g/dL (33.0-35.0); MEAN PLATELET VOLUME 6.6 fL (7.4-11.0); MONOCYTES # (AUTO) 0.9 x10^3/uL (0.3-0.8); MONOCYTES % (AUTO) 9.3 % (0.0-13.0); NEUTROPHILS # (AUTO) 7.2 x10^3/uL (2.2-4.8); NEUTROPHILS % (AUTO) 70.6 % (42.0-75.0); RED BLOOD COUNT 3.45 X10^6/uL (4.7-6.0); RED CELL DISTRIBUTION WIDTH 13.7 % (11.6-16.5); WHITE BLOOD COUNT 10.1 X10^3/uL (3.6-10.0)
[2022-05-25 05:39] LABS: ALANINE AMINOTRANSFERASE 12 Units/L (12-78); ALKALINE PHOSPHATASE 96 Units/L (46-116); ASPARTATE AMINO TRANSFERASE 14 Units/L (15-37); BLOOD UREA NITROGEN 15 mg/dL (7-18); CALCIUM 8.2 mg/dL (8.5-10.1); CHLORIDE 106 mmol/L (98-107); COR CA(FOR HYPOALB) 9.8 mg/dL (8.5-10.1); COR NA(FOR HYPERGLY) 142 mmol/L (136-145); SODIUM 139 mmol/L (136-145); TOTAL PROTEIN 5.8 g/dL (6.4-8.2); eGFR NON BLACK RACES > 60 (>60)
--- NOTE | 2022-05-25 08:28 | DR.PROGNOT ---
HOSPITAL PROGRESS NOTE Progress Note for Day of: Progress Note Date: 05/25/22 Chief Complaint Chief Complaint: was seen yesterday and today . having purulent drainage from the dorsal Lt foot ulcer . no improvement with ABT BS is fairly controlled .A1c 8.4. Past Medical Family Social History Past Med/Fam/Surg Hx: No changes since H&P Allergies: Allergies Penicillins Allergy (Mild, Verified 12/25/18 19:56) Sulfa (Sulfonamide Antibiotics) [SULFA] Allergy (Mild, Verified 12/25/18 19:56) Review Of Systems ROS: No change since H&P Vital Signs Vital Signs: Temperature 98.1 F Pulse Rate [Brachial] 59 Pulse Rate 83 Respiratory Rate 18 Blood Pressure [Left Arm] 133/71 Blood Pressure [Right Arm] 135/91 Blood Pressure 146/88 O2 Sat by Pulse Oximetry 91 Physical Exam Oriented: Normal Eyes: Normal Ear: Normal Nose: Normal Throat: Normal Cardiovascular: Normal : Normal GI:Auscultation: Normal GI:Palpation: Normal GI: Tenderness: Normal Skin: Other (4 x 3 cm ulcerated skin dorsal Lt foot with associated erythema and purulent drainage , no abscess or necrosis .dry gangrenous middle and 4th toe . distal pulses + with Dopler ) Musculoskeletal: Right, Left, Foot and Tender Psychiatric: Normal Mood Description: Calm Affect: Normal Speech Pattern: Clear and Delayed Laboratory and Diagnostics Result Diagrams: 05/25/22 04:40 05/25/22 04:40 Labs: 05/20/22 04:30 Blood Blood Culture - Preliminary 05/20/22 04:46 Blood Blood Culture - Preliminary 05/17/22 19:33 Foot - Left Wound Gram Stain - Final 05/17/22 19:33 Foot - Left Wound Culture - Final Proteus Vulgaris Enterococcus Faecalis Laboratory WBC 10.1 X10^3/uL (3.6-10.0) H 05/25/22 04:40 RBC 3.45 X10^6/uL (4.7-6.0) L 05/25/22 04:40 Hgb 10.4 g/dL (13.5-18.0) L 05/25/22 04:40 Hct 30.1 % (42.0-54.0) L 05/25/22 04:40 MCV 87.0 fL (80.0-100.0) 05/25/22 04:40 MCH 30.0 pg (27.0-34.0) 05/25/22 04:40 MCHC 34.5 g/dL (33.0-35.0) 05/25/22 04:40 RDW 13.7 % (11.6-16.5) 05/25/22 04:40 Plt Count 325 X10^3/uL (150.0-450.0) 05/25/22 04:40 MPV 6.6 fL (7.4-11.0) L 05/25/22 04:40 Neut % (Auto) 70.6 % (42.0-75.0) 05/25/22 04:40 Lymph % (Auto) 17.9 % (21.0-51.0) L 05/25/22 04:40 [place] % (Auto) 9.3 % (0.0-13.0) 05/25/22 04:40 Eos % (Auto) 1.7 % (0.9-2.9) 05/25/22 04:40 Baso % (Auto) 0.5 % (0.2-1.0) 05/25/22 04:40 Neut # (Auto) 7.2 x10^3/uL (2.2-4.8) H 05/25/22 04:40 Lymph # (Auto) 1.8 X10^3/uL (1.3-2.9) 05/25/22 04:40 [place] # (Auto) 0.9 x10^3/uL (0.3-0.8) H 05/25/22 04:40 Eos # (Auto) 0.2 x10^3/uL (0.0-0.2) 05/25/22 04:40 Baso # (Auto) 0.0 X10^3/uL (0.0-0.1) 05/25/22 04:40 Absolute Nucleated RBC 0.0 /100WBC 05/25/22 04:40 Sodium 139 mmol/L (136-145) 05/25/22 04:40 Corrected Sodium 142 mmol/L (136-145) 05/25/22 04:40 Potassium 4.0 mmol/L (3.5-5.1) 05/25/22 04:40 Chloride 106 mmol/L (98-107) 05/25/22 04:40 Carbon Dioxide 26.0 mmol/L (21-32) 05/25/22 04:40 BUN 15 mg/dL (7-18) 05/25/22 04:40 Creatinine 0.90 mg/dL (0.70-1.30) 05/25/22 04:40 Est GFR (MDRD) Af Amer > 60 (>60) 05/25/22 04:40 Est GFR (MDRD) Non-Af > 60 (>60) 05/25/22 04:40 Glucose 209 mg/dL (65-99) H 05/25/22 04:40 POC Glucose (mg/dL) 200 mg/dL (65-99) H 05/25/22 05:19 Hemoglobin A1c 8.4 % 05/20/22 04:46 Calcium 8.2 mg/dL (8.5-10.1) L 05/25/22 04:40 Corrected Calcium 9.8 mg/dL (8.5-10.1) 05/25/22 04:40 Total Bilirubin 0.20 mg/dL (0.2-1.0) 05/25/22 04:40 AST 14 Units/L (15-37) L 05/25/22 04:40 ALT 12 Units/L (12-78) 05/25/22 04:40 Alkaline Phosphatase 96 Units/L (46-116) 05/25/22 04:40 Total Protein 5.8 g/dL (6.4-8.2) L 05/25/22 04:40 Albumin 2.0 g/dL (3.4-5.0) L 05/25/22 04:40 Globulin 3.8 g/dL (2.5-4.5) 05/25/22 04:40 Albumin/Globulin Ratio 0.5 Ratio (1.1-2.1) L 05/25/22 04:40 Specimen Type Clean catch urine 05/20/22 09:19 Urine Color Yellow (YELLOW) 05/20/22 09:19 Urine Appearance Clear (CLEAR) 05/20/22 09:19 Urine pH 6.0 (5.0 - 8.0) 05/20/22 09:19 Ur Specific [place] 1.020 (1.000-1.030) 05/20/22 09:19 Urine Protein 2+ (NEGATIVE) 02/13/23 09:19 Urine Glucose (UA) Negative (NEGATIVE) 05/20/22 09:19 Urine Ketones Negative (NEGATIVE) 05/20/22 09:19 Urine Blood Negative (NEGATIVE) 05/20/22 09:19 Urine Nitrite Negative (NEGATIVE) 05/20/22 09:19 Urine Bilirubin Negative (NEGATIVE) 05/20/22 09:19 Urine Urobilinogen Normal (NORMAL) 05/20/22 09:19 Ur Leukocyte Esterase Negative (NEGATIVE) 05/20/22 09:19 Urine RBC None seen /HPF (0-3) 05/20/22 09:19 Urine WBC None seen /HPF (0-5) 05/20/22 09:19 Ur Squamous Epith Cells Rare /HPF (NEGATIVE) 05/20/22 09:19 Urine Bacteria Trace /HPF (NEGATIVE) 05/20/22 09:19 Urine Mucus Few /HPF (NEGATIVE) 05/20/22 09:19 Ur Culture Indicated? No/not indicated 05/20/22 09:19 Vancomycin Trough 20.8 ug/mL (15-20) H* 05/22/22 20:15 Assessment and Plan 1: diabetic Lt foot ulcer dorsal aspect , no improvement on antibiotics dry gangrene Lt 3 ed and 4th toe . small vessel disease DM with Neuropathy . same Vancomycin . transmetatarsal amputation LT foot to control the infection hopefully we can save the heel . Problem Patient Problems: Patient Problems (Updated 05/18/22 @ 23:12 by Umberto Mack) Physical deconditioning (Acute) R53.81 Hyperglycemia (Acute) R73.9 PAD (peripheral artery disease) (Acute) I73.9 Cellulitis of both feet (Acute) L03.115, L03.116 GERD (gastroesophageal reflux disease) (Chronic) K21.9 Dyslipidemia (Chronic) E78.5 Hypertension (Chronic) I10
[2022-05-25] MEDS: LOVENOX INJ 40 MG SYR SC SCH (08:55)
[2022-05-25] MEDS: LOPRESSOR TAB 25 MG PO SCH ×2 (08:57→20:07)
[2022-05-25] MEDS: PEPCID TAB 20 MG PO SCH ×2 (08:57→20:07)
[2022-05-25] MEDS: GLUCOPHAGE XR 24-HR PO SCH (08:58)
[2022-05-25] MEDS: ACTOS PO SCH (09:01)
[2022-05-25] MEDS: NS 1,000 ML IV 1,000 ML IV SCH ×2 (10:00→21:01)
[2022-05-25] MEDS: CRESTOR TAB 10 MG PO SCH (20:07)
[2022-05-25] MEDS: SNACK - Diabetic Appropriate PO SCH (21:06)
[2022-05-26] MEDS: MERREM VIAL 500 MG in NS 100 ML IV 100 ML IV SCH ×3 (05:33→21:01)
[2022-05-26] MEDS: NS 1,000 ML IV 1,000 ML IV SCH ×3 (05:33→10:15)
[2022-05-26 06:23] LABS: BASOPHILS # (AUTO) 0.1 X10^3/uL (0.0-0.1); BASOPHILS % (AUTO) 0.6 % (0.2-1.0); EOSINOPHILS # (AUTO) 0.2 x10^3/uL (0.0-0.2); EOSINOPHILS % (AUTO) 1.6 % (0.9-2.9); HEMATOCRIT 28.7 % (42.0-54.0); HEMOGLOBIN 10.1 g/dL (13.5-18.0); LYMPHOCYTES # (AUTO) 1.7 X10^3/uL (1.3-2.9); MEAN CORPUSCULAR HEMOGLOBIN 30.8 pg (27.0-34.0); MEAN CORPUSCULAR HGB CONC 35.2 g/dL (33.0-35.0); MEAN CORPUSCULAR VOLUME 87.4 fL (80.0-100.0); MEAN PLATELET VOLUME 6.6 fL (7.4-11.0); MONOCYTES # (AUTO) 0.8 x10^3/uL (0.3-0.8); NEUTROPHILS # (AUTO) 7.4 x10^3/uL (2.2-4.8); NEUTROPHILS % (AUTO) 72.8 % (42.0-75.0); RED BLOOD COUNT 3.29 X10^6/uL (4.7-6.0); RED CELL DISTRIBUTION WIDTH 13.9 % (11.6-16.5); WHITE BLOOD COUNT 10.1 X10^3/uL (3.6-10.0)
[2022-05-26 06:37] LABS: ALANINE AMINOTRANSFERASE 11 Units/L (12-78); ALBUMIN 1.9 g/dL (3.4-5.0); ALKALINE PHOSPHATASE 91 Units/L (46-116); ASPARTATE AMINO TRANSFERASE 12 Units/L (15-37); BLOOD UREA NITROGEN 16 mg/dL (7-18); CALCIUM 8.3 mg/dL (8.5-10.1); CARBON DIOXIDE 25.9 mmol/L (21-32); CHLORIDE 108 mmol/L (98-107); COR NA(FOR HYPERGLY) 141 mmol/L (136-145); CREATININE 0.74 mg/dL (0.70-1.30); SODIUM 140 mmol/L (136-145); TOTAL PROTEIN 5.6 g/dL (6.4-8.2); eGFR NON BLACK RACES > 60 (>60)
[2022-05-26] MEDS: ACTOS PO SCH (08:01)
[2022-05-26] MEDS: LOVENOX INJ 40 MG SYR SC SCH (08:01)
[2022-05-26] MEDS: LOPRESSOR TAB 25 MG PO SCH ×2 (08:02→20:32)
[2022-05-26] MEDS: PEPCID TAB 20 MG PO SCH ×2 (08:02→20:32)
[2022-05-26] MEDS: GLUCOPHAGE XR 24-HR PO SCH (08:03)
[2022-05-26] MEDS ORDERED: POTASSIUM CHLORIDE LIQ 20 MEQ UDC PO PRN (09:58)
[2022-05-26] MEDS ORDERED: POTASSIUM CHL 60 MEQ/NS 0.45% 500 ML IV PRN (09:58)
[2022-05-26] MEDS ORDERED: KLOR-CON PO PRN (09:58)
[2022-05-26] MEDS ORDERED: POTASSIUM CHL 40 MEQ/NS 0.45% 500 ML IV PRN (09:58)
[2022-05-26] MEDS ORDERED: MICRO K EXTEN CAP 10 MEQ PO PRN (09:58)
[2022-05-26] MEDS ORDERED: K-RIDER 10 MEQ/NS 100 ML 10 MEQ/100 ML BAG IV PRN (09:58)
[2022-05-26] MEDS: SNACK - Diabetic Appropriate PO SCH (20:00)
[2022-05-26] MEDS: CRESTOR TAB 10 MG PO SCH (20:32)
[2022-05-27] MEDS: NS 1,000 ML IV 1,000 ML IV SCH ×4 (00:58→20:44)
[2022-05-27] MEDS: MERREM VIAL 500 MG in NS 100 ML IV 100 ML IV SCH ×3 (05:04→21:57)
[2022-05-27 06:13] LABS: ALANINE AMINOTRANSFERASE 9 Units/L (12-78); ALBUMIN 2.1 g/dL (3.4-5.0); ALKALINE PHOSPHATASE 88 Units/L (46-116); ASPARTATE AMINO TRANSFERASE 17 Units/L (15-37); BLOOD UREA NITROGEN 12 mg/dL (7-18); CALCIUM 8.5 mg/dL (8.5-10.1); CARBON DIOXIDE 28.7 mmol/L (21-32); CHLORIDE 107 mmol/L (98-107); COR NA(FOR HYPERGLY) 141 mmol/L (136-145); CREATININE 0.69 mg/dL (0.70-1.30); SODIUM 140 mmol/L (136-145); TOTAL PROTEIN 5.9 g/dL (6.4-8.2); eGFR NON BLACK RACES > 60 (>60)
[2022-05-27 06:42] LABS: BASOPHILS # (AUTO) 0.1 X10^3/uL (0.0-0.1); BASOPHILS % (AUTO) 0.6 % (0.2-1.0); EOSINOPHILS # (AUTO) 0.2 x10^3/uL (0.0-0.2); EOSINOPHILS % (AUTO) 1.9 % (0.9-2.9); HEMATOCRIT 31.3 % (42.0-54.0); HEMOGLOBIN 10.8 g/dL (13.5-18.0); LYMPHOCYTES # (AUTO) 1.5 X10^3/uL (1.3-2.9); MEAN CORPUSCULAR HGB CONC 34.4 g/dL (33.0-35.0); MEAN CORPUSCULAR VOLUME 87.2 fL (80.0-100.0); MEAN PLATELET VOLUME 6.1 fL (7.4-11.0); MONOCYTES # (AUTO) 0.7 x10^3/uL (0.3-0.8); NEUTROPHILS # (AUTO) 7.1 x10^3/uL (2.2-4.8); NEUTROPHILS % (AUTO) 74.5 % (42.0-75.0); RED BLOOD COUNT 3.59 X10^6/uL (4.7-6.0); RED CELL DISTRIBUTION WIDTH 13.9 % (11.6-16.5); WHITE BLOOD COUNT 9.6 X10^3/uL (3.6-10.0)
[2022-05-27] MEDS: GLUCOPHAGE XR 24-HR PO SCH ×2 (09:12→09:21)
[2022-05-27] MEDS: ACTOS PO SCH (09:13)
[2022-05-27] MEDS: LOVENOX INJ 40 MG SYR SC SCH ×2 (09:13→10:53)
[2022-05-27] MEDS: LOPRESSOR TAB 25 MG PO SCH ×2 (09:13→20:44)
[2022-05-27] MEDS: PEPCID TAB 20 MG PO SCH ×2 (09:13→20:44)
[2022-05-27] MEDS ORDERED: BYFAVO INJ IVP ONE (11:55)
[2022-05-27] MEDS ORDERED: NAROPIN 0.75% EPI ONE (11:56)
[2022-05-27] MEDS ORDERED: ZOFRAN INJ 4 MG VIAL ONE (12:06)
[2022-05-27] MEDS ORDERED: REGLAN INJ 10 MG VIAL ONE (12:06)
[2022-05-27] MEDS ORDERED: PEPCID 20 MG VIAL ONE (12:07)
[2022-05-27] MEDS ORDERED: BETADINE SOLN ONE ×2 (12:30→13:57)
[2022-05-27] MEDS ORDERED: DIPRIVAN VIAL 20 ML ONE (12:43)
[2022-05-27] MEDS ORDERED: NS 1,000 ML IV 1,000 ML ONE (12:54)
--- NOTE | 2022-05-27 13:22 | EKG ---
Test Reason : surgical procedure Blood Pressure : */* mmHG Vent. Rate : 55 BPM Atrial Rate : 55 BPM P-R Int : 176 ms QRS Dur : 158 ms QT Int : 534 ms P-R-T Axes : -20 -18 -57 degrees QTc Int : 510 ms Sinus bradycardia Right bundle branch block T wave abnormality, consider lateral ischemia Abnormal ECG No previous ECGs available Confirmed by Maged Cage ([id number]) on 05/28/2022 8:38:51 AM Referred By: Confirmed By: Maged Cage
[2022-05-27] MEDS ORDERED: NS 100 ML IV 100 ML ONE (13:27)
[2022-05-27] MEDS ORDERED: ANCEF VIAL 1 GRAM ONE (13:27)
[2022-05-27] MEDS ORDERED: XYLOCAINE 1 % (PLAIN) ONE (13:42)
[2022-05-27] MEDS: SNACK - Diabetic Appropriate PO SCH (20:44)
[2022-05-27] MEDS: CRESTOR TAB 10 MG PO SCH (20:44)
[2022-05-28] MEDS: NS 1,000 ML IV 1,000 ML IV SCH ×3 (04:30→22:17)
[2022-05-28] MEDS: MERREM VIAL 500 MG in NS 100 ML IV 100 ML IV SCH ×3 (05:54→22:21)
[2022-05-28 06:15] LABS: BASOPHILS # (AUTO) 0.1 X10^3/uL (0.0-0.1); BASOPHILS % (AUTO) 0.7 % (0.2-1.0); EOSINOPHILS # (AUTO) 0.2 x10^3/uL (0.0-0.2); EOSINOPHILS % (AUTO) 1.7 % (0.9-2.9); HEMATOCRIT 32.5 % (42.0-54.0); HEMOGLOBIN 11.1 g/dL (13.5-18.0); LYMPHOCYTES # (AUTO) 1.8 X10^3/uL (1.3-2.9); LYMPHOCYTES % (AUTO) 18.2 % (21.0-51.0); MEAN CORPUSCULAR HEMOGLOBIN 29.6 pg (27.0-34.0); MEAN CORPUSCULAR HGB CONC 34.1 g/dL (33.0-35.0); MEAN CORPUSCULAR VOLUME 86.8 fL (80.0-100.0); MEAN PLATELET VOLUME 6.4 fL (7.4-11.0); MONOCYTES # (AUTO) 0.7 x10^3/uL (0.3-0.8); MONOCYTES % (AUTO) 7.2 % (0.0-13.0); NEUTROPHILS % (AUTO) 72.2 % (42.0-75.0); RED BLOOD COUNT 3.74 X10^6/uL (4.7-6.0); RED CELL DISTRIBUTION WIDTH 14.2 % (11.6-16.5); WHITE BLOOD COUNT 9.8 X10^3/uL (3.6-10.0)
[2022-05-28 06:22] LABS: ALANINE AMINOTRANSFERASE 11 Units/L (12-78); ALBUMIN 2.2 g/dL (3.4-5.0); ALKALINE PHOSPHATASE 88 Units/L (46-116); ASPARTATE AMINO TRANSFERASE 13 Units/L (15-37); BLOOD UREA NITROGEN 11 mg/dL (7-18); CALCIUM 8.5 mg/dL (8.5-10.1); CARBON DIOXIDE 32.3 mmol/L (21-32); CHLORIDE 105 mmol/L (98-107); COR CA(FOR HYPOALB) 9.9 mg/dL (8.5-10.1); COR NA(FOR HYPERGLY) 140 mmol/L (136-145); CREATININE 0.83 mg/dL (0.70-1.30); SODIUM 139 mmol/L (136-145); TOTAL PROTEIN 6.2 g/dL (6.4-8.2); eGFR NON BLACK RACES > 60 (>60)
--- NOTE | 2022-05-28 07:54 | DR.PROGNOT ---
HOSPITAL PROGRESS NOTE Progress Note for Day of: Progress Note Date: 05/28/22 Chief Complaint Chief Complaint: PO amputation of 2dn,third, 4th and fifth Lt toe for gangrene and abscess formation . doing very well . dressing was changed .. has bleeding skin edges , no further gangrene or necrosis . normal WBC . afebrile . Past Medical Family Social History Past Med/Fam/Surg Hx: No changes since H&P Allergies: Allergies Penicillins Allergy (Mild, Verified 12/25/18 19:56) Sulfa (Sulfonamide Antibiotics) [SULFA] Allergy (Mild, Verified 12/25/18 19:56) Review Of Systems ROS: No change since H&P Vital Signs Vital Signs: Temperature 97.9 F Pulse Rate [Brachial] 58 Pulse Rate 83 Respiratory Rate 16 Blood Pressure [Left Arm] 157/75 Blood Pressure [Right Arm] 130/74 Blood Pressure 146/88 O2 Sat by Pulse Oximetry 94 Physical Exam Oriented: Normal Eyes: Normal Ear: Normal Nose: Normal Throat: Normal Cardiovascular: Normal : Normal GI:Auscultation: Normal GI:Palpation: Normal GI: Tenderness: Normal Skin: Other (dressing was changed as sbove . no active infection or necrosis ..) Musculoskeletal: Right, Left, Foot and Tender Psychiatric: Normal Mood Description: Calm Affect: Normal Speech Pattern: Clear and Delayed Laboratory and Diagnostics Result Diagrams: 05/28/22 05:29 05/28/22 05:29 Labs: 05/27/22 13:50 Toe - Left Third Wound Gram Stain - Final 05/25/22 11:00 Foot - Left Wound Gram Stain - Final 05/25/22 11:00 Foot - Left Wound Culture - Preliminary 05/20/22 04:30 Blood Blood Culture - Final 05/20/22 04:46 Blood Blood Culture - Final 05/17/22 19:33 Foot - Left Wound Gram Stain - Final 05/17/22 19:33 Foot - Left Wound Culture - Final Proteus Vulgaris Enterococcus Faecalis Laboratory WBC 9.8 X10^3/uL (3.6-10.0) 05/28/22 05:29 RBC 3.74 X10^6/uL (4.7-6.0) L 05/28/22 05:29 Hgb 11.1 g/dL (13.5-18.0) L 05/28/22 05:29 Hct 32.5 % (42.0-54.0) L 05/28/22 05:29 MCV 86.8 fL (80.0-100.0) 05/28/22 05:29 MCH 29.6 pg (27.0-34.0) 05/28/22 05: MCHC 34.1 g/dL (33.0-35.0) 05/28/22 05: RDW 14.2 % (11.6-16.5) 05/28/22 05:29 Plt Count 373 X10^3/uL (150.0-450.0) 05/28/22 05:29 MPV 6.4 fL (7.4-11.0) L 05/28/22 05:29 Neut % (Auto) 72.2 % (42.0-75.0) 05/28/22 05: Lymph % (Auto) 18.2 % (21.0-51.0) L 05/28/22 05:29 [place] % (Auto) 7.2 % (0.0-13.0) 05/28/22 05:29 Eos % (Auto) 1.7 % (0.9-2.9) 05/28/22 05:29 Baso % (Auto) 0.7 % (0.2-1.0) 05/28/22 05:29 Neut # (Auto) 7.0 x10^3/uL (2.2-4.8) H 05/28/22 05:29 Lymph # (Auto) 1.8 X10^3/uL (1.3-2.9) 05/28/22 05:29 [place] # (Auto) 0.7 x10^3/uL (0.3-0.8) 05/28/22 05:29 Eos # (Auto) 0.2 x10^3/uL (0.0-0.2) 05/28/22 05:29 Baso # (Auto) 0.1 X10^3/uL (0.0-0.1) 05/28/22 05:29 Absolute Nucleated RBC 0.0 /100WBC 05/28/22 05:29 Sodium 139 mmol/L (136-145) 05/28/22 05:29 Corrected Sodium 140 mmol/L (136-145) 05/28/22 05:29 Potassium 4.2 mmol/L (3.5-5.1) 05/28/22 05:29 Chloride 105 mmol/L (98-107) 05/28/22 05:29 Carbon Dioxide 32.3 mmol/L (21-32) H 05/28/22 05:29 BUN 11 mg/dL (7-18) 05/28/22 05:29 Creatinine 0.83 mg/dL (0.70-1.30) 05/28/22 05:29 Est GFR (MDRD) Af Amer > 60 (>60) 05/28/22 05:29 Est GFR (MDRD) Non-Af > 60 (>60) 05/28/22 05:29 Glucose 157 mg/dL (65-99) H 05/28/22 05:29 POC Glucose (mg/dL) 145 mg/dL (65-99) H 05/28/22 05:13 Hemoglobin A1c 8.4 % 05/20/22 04:46 Calcium 8.5 mg/dL (8.5-10.1) 05/28/22 05:29 Corrected Calcium 9.9 mg/dL (8.5-10.1) 05/28/22 05:29 Total Bilirubin 0.30 mg/dL (0.2-1.0) 05/28/22 05:29 AST 13 Units/L (15-37) L 05/28/22 05:29 ALT 11 Units/L (12-78) L 05/28/22 05:29 Alkaline Phosphatase 88 Units/L (46-116) 05/28/22 05:29 Total Protein 6.2 g/dL (6.4-8.2) L 05/28/22 05:29 Albumin 2.2 g/dL (3.4-5.0) L 05/28/22 05:29 Globulin 4.0 g/dL (2.5-4.5) 05/28/22 05:29 Albumin/Globulin Ratio 0.6 Ratio (1.1-2.1) L 05/28/22 05:29 Specimen Type Clean catch urine 05/20/22 09:19 Urine Color Yellow (YELLOW) 05/20/22 09:19 Urine Appearance Clear (CLEAR) 05/20/22 09:19 Urine pH 6.0 (5.0 - 8.0) 05/20/22 09:19 Ur Specific [place] 1.020 (1.000-1.030) 05/20/22 09:19 Urine Protein 2+ (NEGATIVE) 05/20/22 09:19 Urine Glucose (UA) Negative (NEGATIVE) 05/20/22 09:19 Urine Ketones Negative (NEGATIVE) 05/20/22 09:19 Urine Blood Negative (NEGATIVE) 05/20/22 09:19 Urine Nitrite Negative (NEGATIVE) 05/20/22 09:19 Urine Bilirubin Negative (NEGATIVE) 05/20/22 09:19 Urine Urobilinogen Normal (NORMAL) 05/20/22 09:19 Ur Leukocyte Esterase Negative (NEGATIVE) 05/20/22 09:19 Urine RBC None seen /HPF (0-3) 05/20/22 09:19 Urine WBC None seen /HPF (0-5) 05/20/22 09:19 Ur Squamous Epith Cells Rare /HPF (NEGATIVE) 05/20/22 09:19 Urine Bacteria Trace /HPF (NEGATIVE) 05/20/22 09:19 Urine Mucus Few /HPF (NEGATIVE) 05/20/22 09:19 Ur Culture Indicated? No/not indicated 05/20/22 09:19 Vancomycin Trough 20.8 ug/mL (15-20) H* 05/22/22 20:15 Tissue Pathology To follow 05/27/22 13:50 Assessment and Plan 1: s/p amputation 2,3,4,5 th toes . diabetic Lt foot ulcer dorsal aspect , small vessel disease DM with Neuropathy . same Vancomycin . same local care and future revision and skin closure of the open wound when the infection is cleared . Problem Patient Problems: Patient Problems (Updated 05/18/22 @ 23:12 by Umberto Mack) Physical deconditioning (Acute) R53.81 Hyperglycemia (Acute) R73.9 PAD (peripheral artery disease) (Acute) I73.9 Cellulitis of both feet (Acute) L03.115, L03.116 GERD (gastroesophageal reflux disease) (Chronic) K21.9 Dyslipidemia (Chronic) E78.5 Hypertension (Chronic) I10
[2022-05-28] MEDS: PEPCID TAB 20 MG PO SCH ×2 (10:20→21:29)
[2022-05-28] MEDS: ACTOS PO SCH (10:20)
[2022-05-28] MEDS: LOVENOX INJ 40 MG SYR SC SCH (10:20)
[2022-05-28] MEDS: GLUCOPHAGE XR 24-HR PO SCH (10:21)
[2022-05-28] MEDS: LOPRESSOR TAB 25 MG PO SCH ×2 (10:21→21:28)
[2022-05-28] MEDS: NovoLIN R (or HumuLIN R) SUBCUT PRN ×2 (12:13→21:29)
[2022-05-28] MEDS: SNACK - Diabetic Appropriate PO SCH (20:00)
[2022-05-28] MEDS: CRESTOR TAB 10 MG PO SCH (21:28)
[2022-05-29] MEDS: NS 1,000 ML IV 1,000 ML IV SCH ×3 (00:40→23:48)
[2022-05-29] MEDS: MERREM VIAL 500 MG in NS 100 ML IV 100 ML IV SCH ×3 (05:31→22:47)
[2022-05-29 05:46] LABS: BASOPHILS # (AUTO) 0.1 X10^3/uL (0.0-0.1); BASOPHILS % (AUTO) 0.9 % (0.2-1.0); EOSINOPHILS # (AUTO) 0.1 x10^3/uL (0.0-0.2); EOSINOPHILS % (AUTO) 1.6 % (0.9-2.9); HEMATOCRIT 28.8 % (42.0-54.0); LYMPHOCYTES % (AUTO) 25.5 % (21.0-51.0); MEAN CORPUSCULAR HEMOGLOBIN 30.1 pg (27.0-34.0); MEAN CORPUSCULAR HGB CONC 34.7 g/dL (33.0-35.0); MEAN CORPUSCULAR VOLUME 86.8 fL (80.0-100.0); MEAN PLATELET VOLUME 6.6 fL (7.4-11.0); MONOCYTES # (AUTO) 0.7 x10^3/uL (0.3-0.8); MONOCYTES % (AUTO) 8.4 % (0.0-13.0); NEUTROPHILS # (AUTO) 5.1 x10^3/uL (2.2-4.8); NEUTROPHILS % (AUTO) 63.6 % (42.0-75.0); RED BLOOD COUNT 3.32 X10^6/uL (4.7-6.0); RED CELL DISTRIBUTION WIDTH 14.1 % (11.6-16.5)
[2022-05-29 06:04] LABS: ALANINE AMINOTRANSFERASE 8 Units/L (12-78); ALBUMIN 2.1 g/dL (3.4-5.0); ALKALINE PHOSPHATASE 81 Units/L (46-116); ASPARTATE AMINO TRANSFERASE 11 Units/L (15-37); BLOOD UREA NITROGEN 12 mg/dL (7-18); CALCIUM 8.2 mg/dL (8.5-10.1); CHLORIDE 106 mmol/L (98-107); COR CA(FOR HYPOALB) 9.7 mg/dL (8.5-10.1); COR NA(FOR HYPERGLY) 141 mmol/L (136-145); CREATININE 0.82 mg/dL (0.70-1.30); SODIUM 141 mmol/L (136-145); TOTAL PROTEIN 5.8 g/dL (6.4-8.2); eGFR NON BLACK RACES > 60 (>60)
[2022-05-29] MEDS: LOVENOX INJ 40 MG SYR SC SCH (09:06)
[2022-05-29] MEDS: K-DUR TAB 20 MEQ PO PRN (09:07)
[2022-05-29] MEDS: LOPRESSOR TAB 25 MG PO SCH ×2 (09:07→20:33)
[2022-05-29] MEDS: PEPCID TAB 20 MG PO SCH ×2 (09:07→20:33)
[2022-05-29] MEDS: GLUCOPHAGE XR 24-HR PO SCH (09:12)
[2022-05-29] MEDS: ACTOS PO SCH (09:12)
[2022-05-29] MEDS: CRESTOR TAB 10 MG PO SCH (20:33)
[2022-05-29] MEDS: SNACK - Diabetic Appropriate PO SCH (20:35)
[2022-05-30] MEDS: NS 1,000 ML IV 1,000 ML IV SCH ×2 (03:56→13:17)
[2022-05-30] MEDS: MERREM VIAL 500 MG in NS 100 ML IV 100 ML IV SCH ×3 (05:46→21:07)
[2022-05-30 06:12] LABS: BASOPHILS # (AUTO) 0.1 X10^3/uL (0.0-0.1); BASOPHILS % (AUTO) 0.7 % (0.2-1.0); EOSINOPHILS # (AUTO) 0.2 x10^3/uL (0.0-0.2); HEMATOCRIT 29.8 % (42.0-54.0); HEMOGLOBIN 10.3 g/dL (13.5-18.0); LYMPHOCYTES % (AUTO) 23.2 % (21.0-51.0); MEAN CORPUSCULAR HGB CONC 34.5 g/dL (33.0-35.0); MEAN CORPUSCULAR VOLUME 87.1 fL (80.0-100.0); MEAN PLATELET VOLUME 6.3 fL (7.4-11.0); MONOCYTES # (AUTO) 0.6 x10^3/uL (0.3-0.8); MONOCYTES % (AUTO) 6.9 % (0.0-13.0); NEUTROPHILS # (AUTO) 5.7 x10^3/uL (2.2-4.8); NEUTROPHILS % (AUTO) 67.2 % (42.0-75.0); RED BLOOD COUNT 3.43 X10^6/uL (4.7-6.0); RED CELL DISTRIBUTION WIDTH 13.9 % (11.6-16.5); WHITE BLOOD COUNT 8.5 X10^3/uL (3.6-10.0)
[2022-05-30 06:32] LABS: ALANINE AMINOTRANSFERASE 13 Units/L (12-78); ALBUMIN 2.1 g/dL (3.4-5.0); ALKALINE PHOSPHATASE 75 Units/L (46-116); ASPARTATE AMINO TRANSFERASE 12 Units/L (15-37); BLOOD UREA NITROGEN 10 mg/dL (7-18); CALCIUM 8.4 mg/dL (8.5-10.1); CARBON DIOXIDE 29.9 mmol/L (21-32); CHLORIDE 105 mmol/L (98-107); COR CA(FOR HYPOALB) 9.9 mg/dL (8.5-10.1); COR NA(FOR HYPERGLY) 142 mmol/L (136-145); CREATININE 0.66 mg/dL (0.70-1.30); SODIUM 141 mmol/L (136-145); TOTAL PROTEIN 5.8 g/dL (6.4-8.2); eGFR NON BLACK RACES > 60 (>60)
--- NOTE | 2022-05-30 08:29 | DR.PROGNOT ---
HOSPITAL PROGRESS NOTE Progress Note for Day of: Progress Note Date: 05/30/22 Chief Complaint Chief Complaint: dressing was changed ..good healing . no necrosis or abscess formation . Past Medical Family Social History Past Med/Fam/Surg Hx: No changes since H&P Allergies: Allergies Penicillins Allergy (Mild, Verified 12/25/18 19:56) Sulfa (Sulfonamide Antibiotics) [SULFA] Allergy (Mild, Verified 12/25/18 19:56) Review Of Systems ROS: No change since H&P Vital Signs Vital Signs: Temperature 97.9 F Pulse Rate [Brachial] 64 Pulse Rate 83 Respiratory Rate 20 Blood Pressure [Left Arm] 145/67 Blood Pressure [Right Arm] 130/74 Blood Pressure 146/88 O2 Sat by Pulse Oximetry 90 Physical Exam Oriented: Normal Eyes: Normal Ear: Normal Nose: Normal Throat: Normal Cardiovascular: Normal : Normal GI:Auscultation: Normal GI:Palpation: Normal GI: Tenderness: Normal Skin: Other (dressing was changed as sbove . no active infection or necrosis ..) Musculoskeletal: Right, Left, Foot and Tender Psychiatric: Normal Mood Description: Calm Affect: Normal Speech Pattern: Clear and Appropriate Laboratory and Diagnostics Result Diagrams: 05/30/22 05:42 05/30/22 05:42 Labs: 05/27/22 13:50 Toe - Left Third Wound Gram Stain - Final 05/27/22 13:50 Toe - Left Third Wound Culture - Preliminary 05/25/22 11:00 Foot - Left Wound Gram Stain - Final 05/25/22 11:00 Foot - Left Wound Culture - Final Proteus Vulgaris 05/20/22 04:30 Blood Blood Culture - Final 05/20/22 04:46 Blood Blood Culture - Final 05/17/22 19:33 Foot - Left Wound Gram Stain - Final 05/17/22 19:33 Foot - Left Wound Culture - Final Proteus Vulgaris Enterococcus Faecalis Laboratory WBC 8.5 X10^3/uL (3.6-10.0) 05/30/22 05:42 RBC 3.43 X10^6/uL (4.7-6.0) L 05/30/22 05:42 Hgb 10.3 g/dL (13.5-18.0) L 05/30/22 05:42 Hct 29.8 % (42.0-54.0) L 05/30/22 05:42 MCV 87.1 fL (80.0-100.0) 05/30/22 05:42 MCH 30.0 pg (27.0-34.0) 05/30/22 05:42 MCHC 34.5 g/dL (33.0-35.0) 05/30/22 05:42 RDW 13.9 % (11.6-16.5) 05/30/22 05:42 Plt Count 319 X10^3/uL (150.0-450.0) 05/30/22 05:42 MPV 6.3 fL (7.4-11.0) L 05/30/22 05:42 Neut % (Auto) 67.2 % (42.0-75.0) 05/30/22 05:42 Lymph % (Auto) 23.2 % (21.0-51.0) 05/30/22 05:42 [place] % (Auto) 6.9 % (0.0-13.0) 05/30/22 05:42 Eos % (Auto) 2.0 % (0.9-2.9) 05/30/22 05:42 Baso % (Auto) 0.7 % (0.2-1.0) 05/30/22 05:42 Neut # (Auto) 5.7 x10^3/uL (2.2-4.8) H 05/30/22 05:42 Lymph # (Auto) 2.0 X10^3/uL (1.3-2.9) 05/30/22 05:42 [place] # (Auto) 0.6 x10^3/uL (0.3-0.8) 05/30/22 05:42 Eos # (Auto) 0.2 x10^3/uL (0.0-0.2) 05/30/22 05:42 Baso # (Auto) 0.1 X10^3/uL (0.0-0.1) 05/30/22 05:42 Absolute Nucleated RBC 0.0 /100WBC 05/30/22 05:42 Sodium 141 mmol/L (136-145) 05/30/22 05:42 Corrected Sodium 142 mmol/L (136-145) 05/30/22 05:42 Potassium 3.6 mmol/L (3.5-5.1) 05/30/22 05:42 Chloride 105 mmol/L (98-107) 05/30/22 05:42 Carbon Dioxide 29.9 mmol/L (21-32) 05/30/22 05:42 BUN 10 mg/dL (7-18) 05/30/22 05:42 Creatinine 0.66 mg/dL (0.70-1.30) L 05/30/22 05:42 Est GFR (MDRD) Af Amer > 60 (>60) 05/30/22 05:42 Est GFR (MDRD) Non-Af > 60 (>60) 05/30/22 05:42 Glucose 133 mg/dL (65-99) H 05/30/22 05:42 POC Glucose (mg/dL) 129 mg/dL (65-99) H 05/30/22 05:07 Hemoglobin A1c 8.4 % 05/20/22 04:46 Calcium 8.4 mg/dL (8.5-10.1) L 05/30/22 05:42 Corrected Calcium 9.9 mg/dL (8.5-10.1) 05/30/22 05:42 Total Bilirubin 0.20 mg/dL (0.2-1.0) 05/30/22 05:42 AST 12 Units/L (15-37) L 05/30/22 05:42 ALT 13 Units/L (12-78) 05/30/22 05:42 Alkaline Phosphatase 75 Units/L (46-116) 05/30/22 05:42 Total Protein 5.8 g/dL (6.4-8.2) L 05/30/22 05:42 Albumin 2.1 g/dL (3.4-5.0) L 05/30/22 05:42 Globulin 3.7 g/dL (2.5-4.5) 05/30/22 05:42 Albumin/Globulin Ratio 0.6 Ratio (1.1-2.1) L 05/30/22 05:42 Specimen Type Clean catch urine 05/20/22 09:19 Urine Color Yellow (YELLOW) 05/20/22 09:19 Urine Appearance Clear (CLEAR) 05/20/22 09:19 Urine pH 6.0 (5.0 - 8.0) 05/20/22 09:19 Ur Specific [place] 1.020 (1.000-1.030) 05/20/22 09:19 Urine Protein 2+ (NEGATIVE) 05/20/22 09:19 Urine Glucose (UA) Negative (NEGATIVE) 05/20/22 09:19 Urine Ketones Negative (NEGATIVE) 05/20/22 09:19 Urine Blood Negative (NEGATIVE) 05/20/22 09:19 Urine Nitrite Negative (NEGATIVE) 05/20/22 09:19 Urine Bilirubin Negative (NEGATIVE) 05/20/22 09:19 Urine Urobilinogen Normal (NORMAL) 05/20/22 09:19 Ur Leukocyte Esterase Negative (NEGATIVE) 05/20/22 09:19 Urine RBC None seen /HPF (0-3) 05/20/22 09:19 Urine WBC None seen /HPF (0-5) 05/20/22 09:19 Ur Squamous Epith Cells Rare /HPF (NEGATIVE) 05/20/22 09:19 Urine Bacteria Trace /HPF (NEGATIVE) 05/20/22 09:19 Urine Mucus Few /HPF (NEGATIVE) 05/20/22 09:19 Ur Culture Indicated? No/not indicated 05/20/22 09:19 Vancomycin Trough 20.8 ug/mL (15-20) H* 05/22/22 20:15 Tissue Pathology To follow 05/27/22 13:50 Assessment and Plan 1: s/p amputation 2,3,4,5 th toes . diabetic Lt foot ulcer dorsal aspect , small vessel disease DM with Neuropathy . same Vancomycin . same local care and future revision and skin closure of the open . Problem Patient Problems: Patient Problems (Updated 05/18/22 @ 23:12 by Umberto Mack) Physical deconditioning (Acute) R53.81 Hyperglycemia (Acute) R73.9 PAD (peripheral artery disease) (Acute) I73.9 Cellulitis of both feet (Acute) L03.115, L03.116 GERD (gastroesophageal reflux disease) (Chronic) K21.9 Dyslipidemia (Chronic) E78.5 Hypertension (Chronic) I10
[2022-05-30] MEDS: K-DUR TAB 20 MEQ PO PRN (09:26)
[2022-05-30] MEDS: LOPRESSOR TAB 25 MG PO SCH ×2 (09:27→21:07)
[2022-05-30] MEDS: GLUCOPHAGE XR 24-HR PO SCH (09:27)
[2022-05-30] MEDS: ACTOS PO SCH (09:28)
[2022-05-30] MEDS: PEPCID TAB 20 MG PO SCH ×2 (09:28→21:07)
[2022-05-30] MEDS: LOVENOX INJ 40 MG SYR SC SCH (09:29)
[2022-05-30] MEDS ORDERED: NS 100 ML IV 100 ML ONE (16:46)
[2022-05-30] MEDS: SNACK - Diabetic Appropriate PO SCH (20:54)
[2022-05-30] MEDS: CRESTOR TAB 10 MG PO SCH (21:07)
[2022-05-31] MEDS: NS 1,000 ML IV 1,000 ML IV SCH ×3 (01:14→23:30)
[2022-05-31] MEDS: MERREM VIAL 500 MG in NS 100 ML IV 100 ML IV SCH ×3 (05:14→21:17)
[2022-05-31 06:22] LABS: BASOPHILS # (AUTO) 0.1 X10^3/uL (0.0-0.1); BASOPHILS % (AUTO) 0.6 % (0.2-1.0); EOSINOPHILS # (AUTO) 0.1 x10^3/uL (0.0-0.2); EOSINOPHILS % (AUTO) 1.7 % (0.9-2.9); HEMATOCRIT 32.4 % (42.0-54.0); HEMOGLOBIN 10.9 g/dL (13.5-18.0); LYMPHOCYTES # (AUTO) 1.7 X10^3/uL (1.3-2.9); MEAN CORPUSCULAR HEMOGLOBIN 29.6 pg (27.0-34.0); MEAN CORPUSCULAR HGB CONC 33.8 g/dL (33.0-35.0); MEAN CORPUSCULAR VOLUME 87.6 fL (80.0-100.0); MEAN PLATELET VOLUME 6.2 fL (7.4-11.0); MONOCYTES # (AUTO) 0.5 x10^3/uL (0.3-0.8); MONOCYTES % (AUTO) 6.3 % (0.0-13.0); NEUTROPHILS # (AUTO) 5.9 x10^3/uL (2.2-4.8); NEUTROPHILS % (AUTO) 70.4 % (42.0-75.0); RED CELL DISTRIBUTION WIDTH 14.3 % (11.6-16.5); WHITE BLOOD COUNT 8.3 X10^3/uL (3.6-10.0)
[2022-05-31 06:30] LABS: ALANINE AMINOTRANSFERASE 9 Units/L (12-78); ALBUMIN 2.3 g/dL (3.4-5.0); ALKALINE PHOSPHATASE 79 Units/L (46-116); ASPARTATE AMINO TRANSFERASE 13 Units/L (15-37); BLOOD UREA NITROGEN 11 mg/dL (7-18); CALCIUM 8.7 mg/dL (8.5-10.1); CARBON DIOXIDE 31.9 mmol/L (21-32); CHLORIDE 104 mmol/L (98-107); COR CA(FOR HYPOALB) 10.1 mg/dL (8.5-10.1); COR NA(FOR HYPERGLY) 141 mmol/L (136-145); CREATININE 0.74 mg/dL (0.70-1.30); SODIUM 140 mmol/L (136-145); TOTAL PROTEIN 6.2 g/dL (6.4-8.2); eGFR NON BLACK RACES > 60 (>60)
[2022-05-31] MEDS: LOVENOX INJ 40 MG SYR SC SCH (08:38)
[2022-05-31] MEDS: GLUCOPHAGE XR 24-HR PO SCH (08:38)
[2022-05-31] MEDS: ACTOS PO SCH (08:39)
[2022-05-31] MEDS: PEPCID TAB 20 MG PO SCH ×2 (08:39→20:36)
[2022-05-31] MEDS: LOPRESSOR TAB 25 MG PO SCH ×2 (08:39→20:36)
[2022-05-31] MEDS: NovoLIN R (or HumuLIN R) SUBCUT PRN (10:54)
[2022-05-31] MEDS: CRESTOR TAB 10 MG PO SCH (20:36)
[2022-05-31] MEDS: SNACK - Diabetic Appropriate PO SCH (21:20)
[2022-06-01] MEDS: MERREM VIAL 500 MG in NS 100 ML IV 100 ML IV SCH ×3 (05:46→21:22)
[2022-06-01 06:40] LABS: BASOPHILS # (AUTO) 0.1 X10^3/uL (0.0-0.1); BASOPHILS % (AUTO) 0.6 % (0.2-1.0); EOSINOPHILS # (AUTO) 0.1 x10^3/uL (0.0-0.2); EOSINOPHILS % (AUTO) 1.2 % (0.9-2.9); HEMOGLOBIN 10.9 g/dL (13.5-18.0); LYMPHOCYTES # (AUTO) 1.8 X10^3/uL (1.3-2.9); LYMPHOCYTES % (AUTO) 20.7 % (21.0-51.0); MEAN CORPUSCULAR HEMOGLOBIN 29.8 pg (27.0-34.0); MEAN CORPUSCULAR HGB CONC 34.2 g/dL (33.0-35.0); MEAN CORPUSCULAR VOLUME 87.1 fL (80.0-100.0); MEAN PLATELET VOLUME 6.1 fL (7.4-11.0); MONOCYTES # (AUTO) 0.6 x10^3/uL (0.3-0.8); MONOCYTES % (AUTO) 6.8 % (0.0-13.0); NEUTROPHILS # (AUTO) 6.3 x10^3/uL (2.2-4.8); NEUTROPHILS % (AUTO) 70.7 % (42.0-75.0); RED BLOOD COUNT 3.67 X10^6/uL (4.7-6.0); RED CELL DISTRIBUTION WIDTH 14.5 % (11.6-16.5); WHITE BLOOD COUNT 8.9 X10^3/uL (3.6-10.0)
[2022-06-01 06:51] LABS: ALANINE AMINOTRANSFERASE 10 Units/L (12-78); ALBUMIN 2.4 g/dL (3.4-5.0); ALKALINE PHOSPHATASE 78 Units/L (46-116); ASPARTATE AMINO TRANSFERASE 14 Units/L (15-37); BLOOD UREA NITROGEN 11 mg/dL (7-18); CALCIUM 8.5 mg/dL (8.5-10.1); CARBON DIOXIDE 33.3 mmol/L (21-32); CHLORIDE 105 mmol/L (98-107); COR CA(FOR HYPOALB) 9.8 mg/dL (8.5-10.1); COR NA(FOR HYPERGLY) 142 mmol/L (136-145); CREATININE 0.78 mg/dL (0.70-1.30); SODIUM 142 mmol/L (136-145); TOTAL PROTEIN 6.3 g/dL (6.4-8.2); eGFR NON BLACK RACES > 60 (>60)
[2022-06-01] MEDS: NS 1,000 ML IV 1,000 ML IV SCH ×3 (07:00→20:12)
--- NOTE | 2022-06-01 08:46 | DR.PROGNOT ---
HOSPITAL PROGRESS NOTE Progress Note for Day of: Progress Note Date: 06/01/22 Chief Complaint Chief Complaint: dressing was changed ..good healing . no necrosis or abscess formation . Past Medical Family Social History Past Med/Fam/Surg Hx: No changes since H&P Allergies: Allergies Penicillins Allergy (Mild, Verified 12/25/18 19:56) Sulfa (Sulfonamide Antibiotics) [SULFA] Allergy (Mild, Verified 12/25/18 19:56) Review Of Systems ROS: No change since H&P Vital Signs Vital Signs: Temperature 97.8 F Pulse Rate [Brachial] 55 Pulse Rate 83 Respiratory Rate 20 Blood Pressure [Left Arm] 143/67 Blood Pressure [Right Arm] 130/74 Blood Pressure 146/88 O2 Sat by Pulse Oximetry 91 Physical Exam Oriented: Normal Eyes: Normal Ear: Normal Nose: Normal Throat: Normal Cardiovascular: Normal : Normal GI:Auscultation: Normal GI:Palpation: Normal GI: Tenderness: Normal Skin: Other (dressing was changed as sbove . no active infection or necrosis ..) Musculoskeletal: Right, Left, Foot and Tender Psychiatric: Normal Mood Description: Calm Affect: Normal Speech Pattern: Clear and Appropriate Laboratory and Diagnostics Result Diagrams: 06/01/22 06:20 06/01/22 06:20 Labs: 05/27/22 13:50 Toe - Left Third Wound Gram Stain - Final 05/27/22 13:50 Toe - Left Third Wound Culture - Final Proteus Vulgaris 05/25/22 11:00 Foot - Left Wound Gram Stain - Final 05/25/22 11:00 Foot - Left Wound Culture - Final Proteus Vulgaris 05/20/22 04:30 Blood Blood Culture - Final 05/20/22 04:46 Blood Blood Culture - Final 05/17/22 19:33 Foot - Left Wound Gram Stain - Final 05/17/22 19:33 Foot - Left Wound Culture - Final Proteus Vulgaris Enterococcus Faecalis Laboratory WBC 8.9 X10^3/uL (3.6-10.0) 06/01/22 06:20 RBC 3.67 X10^6/uL (4.7-6.0) L 06/01/22 06:20 Hgb 10.9 g/dL (13.5-18.0) L 06/01/22 06:20 Hct 32.0 % (42.0-54.0) L 06/01/22 06:20 MCV 87.1 fL (80.0-100.0) 06/01/22 06:20 MCH 29.8 pg (27.0-34.0) 06/01/22 06:20 MCHC 34.2 g/dL (33.0-35.0) 06/01/22 06:20 RDW 14.5 % (11.6-16.5) 06/01/22 06:20 Plt Count 320 X10^3/uL (150.0-450.0) 06/01/22 06:20 MPV 6.1 fL (7.4-11.0) L 06/01/22 06:20 Neut % (Auto) 70.7 % (42.0-75.0) 06/01/22 06:20 Lymph % (Auto) 20.7 % (21.0-51.0) L 06/01/22 06:20 [place] % (Auto) 6.8 % (0.0-13.0) 06/01/22 06:20 Eos % (Auto) 1.2 % (0.9-2.9) 06/01/22 06:20 Baso % (Auto) 0.6 % (0.2-1.0) 06/01/22 06:20 Neut # (Auto) 6.3 x10^3/uL (2.2-4.8) H 06/01/22 06:20 Lymph # (Auto) 1.8 X10^3/uL (1.3-2.9) 06/01/22 06:20 [place] # (Auto) 0.6 x10^3/uL (0.3-0.8) 06/01/22 06:20 Eos # (Auto) 0.1 x10^3/uL (0.0-0.2) 06/01/22 06:20 Baso # (Auto) 0.1 X10^3/uL (0.0-0.1) 06/01/22 06:20 Absolute Nucleated RBC 0.1 /100WBC 06/01/22 06:20 Sodium 142 mmol/L (136-145) 06/01/22 06:20 Corrected Sodium 142 mmol/L (136-145) 06/01/22 06:20 Potassium 3.7 mmol/L (3.5-5.1) 06/01/22 06:20 Chloride 105 mmol/L (98-107) 06/01/22 06:20 Carbon Dioxide 33.3 mmol/L (21-32) H 06/01/22 06:20 BUN 11 mg/dL (7-18) 06/01/22 06:20 Creatinine 0.78 mg/dL (0.70-1.30) 06/01/22 06:20 Est GFR (MDRD) Af Amer > 60 (>60) 06/01/22 06:20 Est GFR (MDRD) Non-Af > 60 (>60) 06/01/22 06:20 Glucose 112 mg/dL (65-99) H 06/01/22 06:20 POC Glucose (mg/dL) 149 mg/dL (65-99) H 05/31/22 21:20 Hemoglobin A1c 8.4 % 05/20/22 04:46 Calcium 8.5 mg/dL (8.5-10.1) 06/01/22 06:20 Corrected Calcium 9.8 mg/dL (8.5-10.1) 06/01/22 06:20 Total Bilirubin 0.30 mg/dL (0.2-1.0) 06/01/22 06:20 AST 14 Units/L (15-37) L 06/01/22 06:20 ALT 10 Units/L (12-78) L 06/01/22 06:20 Alkaline Phosphatase 78 Units/L (46-116) 06/01/22 06:20 Total Protein 6.3 g/dL (6.4-8.2) L 06/01/22 06:20 Albumin 2.4 g/dL (3.4-5.0) L 06/01/22 06:20 Globulin 3.9 g/dL (2.5-4.5) 06/01/22 06:20 Albumin/Globulin Ratio 0.6 Ratio (1.1-2.1) L 06/01/22 06:20 Specimen Type Clean catch urine 05/20/22 09:19 Urine Color Yellow (YELLOW) 05/20/22 09:19 Urine Appearance Clear (CLEAR) 05/20/22 09:19 Urine pH 6.0 (5.0 - 8.0) 05/20/22 09:19 Ur Specific [place] 1.020 (1.000-1.030) 05/20/22 09:19 Urine Protein 2+ (NEGATIVE) 05/20/22 09:19 Urine Glucose (UA) Negative (NEGATIVE) 05/20/22 09:19 Urine Ketones Negative (NEGATIVE) 05/20/22 09:19 Urine Blood Negative (NEGATIVE) 05/20/22 09:19 Urine Nitrite Negative (NEGATIVE) 05/20/22 09:19 Urine Bilirubin Negative (NEGATIVE) 05/20/22 09:19 Urine Urobilinogen Normal (NORMAL) 05/20/22 09:19 Ur Leukocyte Esterase Negative (NEGATIVE) 05/20/22 09:19 Urine RBC None seen /HPF (0-3) 05/20/22 09:19 Urine WBC None seen /HPF (0-5) 05/20/22 09:19 Ur Squamous Epith Cells Rare /HPF (NEGATIVE) 05/20/22 09:19 Urine Bacteria Trace /HPF (NEGATIVE) 05/20/22 09:19 Urine Mucus Few /HPF (NEGATIVE) 05/20/22 09:19 Ur Culture Indicated? No/not indicated 05/20/22 09:19 Vancomycin Trough 20.8 ug/mL (15-20) H* 05/22/22 20:15 Tissue Pathology To follow 05/27/22 13:50 Assessment and Plan 1: s/p amputation 2,3,4,5 th toes . diabetic Lt foot ulcer dorsal aspect , small vessel disease DM with Neuropathy . same Vancomycin . same local care and revision and skin closure next week . Problem Patient Problems: Patient Problems (Updated 05/18/22 @ 23:12 by Umberto Mack) Physical deconditioning (Acute) R53.81 Hyperglycemia (Acute) R73.9 PAD (peripheral artery disease) (Acute) I73.9 Cellulitis of both feet (Acute) L03.115, L03.116 GERD (gastroesophageal reflux disease) (Chronic) K21.9 Dyslipidemia (Chronic) E78.5 Hypertension (Chronic) I10
[2022-06-01] MEDS: PEPCID TAB 20 MG PO SCH ×2 (09:12→20:12)
[2022-06-01] MEDS: ACTOS PO SCH (09:12)
[2022-06-01] MEDS: LOPRESSOR TAB 25 MG PO SCH ×2 (09:12→20:12)
[2022-06-01] MEDS: GLUCOPHAGE XR 24-HR PO SCH (09:13)
[2022-06-01] MEDS: LOVENOX INJ 40 MG SYR SC SCH (09:14)
--- NOTE | 2022-06-01 12:27 | PCM.PROG ---
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 This morning he is doing well, resting comfortably in bed. No acute events overnight. Labs: Wbc 8.9, Hgb 10.9, Plt 320, Na 142, K 3.7, Creatinine 0.78, Glucose 112, Wound culture pending. He is currently receiving antibiotics IV Vancomycin. General surgery-Dr Nunez following. Continue with current wound care and plan for revision and skin closure early next week. Otherwise continue with current treatment plan and monitor. Past Medical Family Social History Past Med/Fam/Surg Hx: No changes since H&P Allergies: Allergies Penicillins Allergy (Mild, Verified 12/25/18 19:56) Sulfa (Sulfonamide Antibiotics) [SULFA] Allergy (Mild, Verified 12/25/18 19:56) Review of Systems ROS: No change since H&P Vital Signs and I&O's Vital Signs: Temperature 97.9 F Pulse Rate [Brachial] 61 Pulse Rate 83 Respiratory Rate 22 Blood Pressure [Left Arm] 174/81 Blood Pressure [Right Arm] 130/74 Blood Pressure 146/88 O2 Sat by Pulse Oximetry 92 Intake and Output: Intake & Output 05/29/22 05/30/22 05/31/22 06/01/22 23:59 23:59 23:59 23:59 Intake Total 2460 / 2460 7895 / 7895 5100 / 5100 500 / 500 Output Total 320 / 320 Balance 2460 / 2460 7895 / 7895 5100 / 5100 180 / 180 Physical Exam Oriented: Normal Eyes: Normal Ear: Normal Nose: Normal Throat: Normal Cardiovascular: Normal : Normal Auscultation: Bowel Sounds: Normal Tenderness: Normal Skin: Other (dressing was changed as sbove . no active infection or necrosis ..) Musculoskeletal: Right, Left, Foot and Tender Psychiatric: Normal Mood Description: Calm Affect: Normal Speech Pattern: Clear and Appropriate Laboratory and Diagnostics Result Diagrams: 06/01/22 06:20 06/01/22 06:20 Labs: 05/27/22 13:50 Toe - Left Third Wound Gram Stain - Final 05/27/22 13:50 Toe - Left Third Wound Culture - Final Proteus Vulgaris 05/25/22 11:00 Foot - Left Wound Gram Stain - Final 05/25/22 11:00 Foot - Left Wound Culture - Final Proteus Vulgaris 05/20/22 04:30 Blood Blood Culture - Final 05/20/22 04:46 Blood Blood Culture - Final 05/17/22 19:33 Foot - Left Wound Gram Stain - Final 05/17/22 19:33 Foot - Left Wound Culture - Final Proteus Vulgaris Enterococcus Faecalis Laboratory WBC 8.9 X10^3/uL (3.6-10.0) 06/01/22 06:20 RBC 3.67 X10^6/uL (4.7-6.0) L 06/01/22 06:20 Hgb 10.9 g/dL (13.5-18.0) L 06/01/22 06:20 Hct 32.0 % (42.0-54.0) L 06/01/22 06:20 MCV 87.1 fL (80.0-100.0) 06/01/22 06:20 MCH 29.8 pg (27.0-34.0) 06/01/22 06:20 MCHC 34.2 g/dL (33.0-35.0) 06/01/22 06:20 RDW 14.5 % (11.6-16.5) 06/01/22 06:20 Plt Count 320 X10^3/uL (150.0-450.0) 06/01/22 06:20 MPV 6.1 fL (7.4-11.0) L 06/01/22 06:20 Neut % (Auto) 70.7 % (42.0-75.0) 06/01/22 06:20 Lymph % (Auto) 20.7 % (21.0-51.0) L 06/01/22 06:20 [place] % (Auto) 6.8 % (0.0-13.0) 06/01/22 06:20 Eos % (Auto) 1.2 % (0.9-2.9) 06/01/22 06:20 Baso % (Auto) 0.6 % (0.2-1.0) 06/01/22 06:20 Neut # (Auto) 6.3 x10^3/uL (2.2-4.8) H 06/01/22 06:20 Lymph # (Auto) 1.8 X10^3/uL (1.3-2.9) 06/01/22 06:20 [place] # (Auto) 0.6 x10^3/uL (0.3-0.8) 06/01/22 06:20 Eos # (Auto) 0.1 x10^3/uL (0.0-0.2) 06/01/22 06:20 Baso # (Auto) 0.1 X10^3/uL (0.0-0.1) 06/01/22 06:20 Absolute Nucleated RBC 0.1 /100WBC 06/01/22 06:20 Sodium 142 mmol/L (136-145) 06/01/22 06:20 Corrected Sodium 142 mmol/L (136-145) 06/01/22 06:20 Potassium 3.7 mmol/L (3.5-5.1) 06/01/22 06:20 Chloride 105 mmol/L (98-107) 06/01/22 06:20 Carbon Dioxide 33.3 mmol/L (21-32) H 06/01/22 06:20 BUN 11 mg/dL (7-18) 06/01/22 06:20 Creatinine 0.78 mg/dL (0.70-1.30) 06/01/22 06:20 Est GFR (MDRD) Af Amer > 60 (>60) 06/01/22 06:20 Est GFR (MDRD) Non-Af > 60 (>60) 06/01/22 06:20 Glucose 112 mg/dL (65-99) H 06/01/22 06:20 POC Glucose (mg/dL) 164 mg/dL (65-99) H 06/01/22 11:47 Hemoglobin A1c 8.4 % 05/20/22 04:46 Calcium 8.5 mg/dL (8.5-10.1) 06/01/22 06:20 Corrected Calcium 9.8 mg/dL (8.5-10.1) 06/01/22 06:20 Total Bilirubin 0.30 mg/dL (0.2-1.0) 06/01/22 06:20 AST 14 Units/L (15-37) L 06/01/22 06:20 ALT 10 Units/L (12-78) L 06/01/22 06:20 Alkaline Phosphatase 78 Units/L (46-116) 06/01/22 06:20 Total Protein 6.3 g/dL (6.4-8.2) L 06/01/22 06:20 Albumin 2.4 g/dL (3.4-5.0) L 06/01/22 06:20 Globulin 3.9 g/dL (2.5-4.5) 06/01/22 06:20 Albumin/Globulin Ratio 0.6 Ratio (1.1-2.1) L 06/01/22 06:20 Specimen Type Clean catch urine 05/20/22 09:19 Urine Color Yellow (YELLOW) 05/20/22 09:19 Urine Appearance Clear (CLEAR) 05/20/22 09:19 Urine pH 6.0 (5.0 - 8.0) 05/20/22 09:19 Ur Specific [place] 1.020 (1.000-1.030) 05/20/22 09:19 Urine Protein 2+ (NEGATIVE) 05/20/22 09:19 Urine Glucose (UA) Negative (NEGATIVE) 05/20/22 09:19 Urine Ketones Negative (NEGATIVE) 05/20/22 09:19 Urine Blood Negative (NEGATIVE) 05/20/22 09:19 Urine Nitrite Negative (NEGATIVE) 05/20/22 09:19 Urine Bilirubin Negative (NEGATIVE) 05/20/22 09:19 Urine Urobilinogen Normal (NORMAL) 05/20/22 09:19 Ur Leukocyte Esterase Negative (NEGATIVE) 05/20/22 09:19 Urine RBC None seen /HPF (0-3) 05/20/22 09:19 Urine WBC None seen /HPF (0-5) 05/20/22 09:19 Ur Squamous Epith Cells Rare /HPF (NEGATIVE) 05/20/22 09:19 Urine Bacteria Trace /HPF (NEGATIVE) 05/20/22 09:19 Urine Mucus Few /HPF (NEGATIVE) 05/20/22 09:19 Ur Culture Indicated? No/not indicated 05/20/22 09:19 Vancomycin Trough 20.8 ug/mL (15-20) H* 05/22/22 20:15 Tissue Pathology To follow 05/27/22 13:50 Plan (1) Cellulitis of both feet: Status: Acute Plan: CONSULT GENERAL SURGERY, VANCOMYCIN 1G IV Q12H, LOVENOX 40MG SC DAILY, OTBS ACHS, HUMULIN R SLIDING SCALE. HIS HOME MEDICATIONS OF PEPCID, LOPRESSOR, ACTOS, AND CRESTOR WERE RESUMED. OBTAIN LLE MRI (2) Physical deconditioning: Status: Acute (3) PAD (peripheral artery disease): Status: Acute (4) Hyperglycemia: Status: Acute (5) GERD (gastroesophageal reflux disease): Status: Chronic Qualifiers: Esophagitis presence: esophagitis presence not specified Qualified Code(s): K21.9 - Gastro-esophageal reflux disease without esophagitis (6) Dyslipidemia: Status: Chronic (7) Hypertension: Status: Chronic Qualifiers: Hypertension type: primary hypertension Qualified Code(s): I10 - Essential (primary) hypertension
[2022-06-01] MEDS: K-DUR TAB 20 MEQ PO PRN (20:12)
[2022-06-01] MEDS: CRESTOR TAB 10 MG PO SCH (20:12)
[2022-06-01] MEDS: SNACK - Diabetic Appropriate PO SCH (21:00)
[2022-06-02] MEDS: MERREM VIAL 500 MG in NS 100 ML IV 100 ML IV SCH ×3 (05:14→22:13)
[2022-06-02] MEDS: NS 1,000 ML IV 1,000 ML IV SCH ×4 (05:14→20:30)
[2022-06-02 06:40] LABS: BASOPHILS % (AUTO) 0.6 % (0.2-1.0); EOSINOPHILS # (AUTO) 0.1 x10^3/uL (0.0-0.2); EOSINOPHILS % (AUTO) 1.8 % (0.9-2.9); HEMATOCRIT 30.4 % (42.0-54.0); HEMOGLOBIN 10.4 g/dL (13.5-18.0); LYMPHOCYTES # (AUTO) 1.9 X10^3/uL (1.3-2.9); LYMPHOCYTES % (AUTO) 25.9 % (21.0-51.0); MEAN CORPUSCULAR HGB CONC 34.2 g/dL (33.0-35.0); MEAN CORPUSCULAR VOLUME 87.6 fL (80.0-100.0); MEAN PLATELET VOLUME 6.2 fL (7.4-11.0); MONOCYTES # (AUTO) 0.5 x10^3/uL (0.3-0.8); MONOCYTES % (AUTO) 6.9 % (0.0-13.0); NEUTROPHILS # (AUTO) 4.7 x10^3/uL (2.2-4.8); NEUTROPHILS % (AUTO) 64.8 % (42.0-75.0); RED BLOOD COUNT 3.47 X10^6/uL (4.7-6.0); RED CELL DISTRIBUTION WIDTH 14.6 % (11.6-16.5); WHITE BLOOD COUNT 7.2 X10^3/uL (3.6-10.0)
[2022-06-02 06:47] LABS: ALANINE AMINOTRANSFERASE 12 Units/L (12-78); ALBUMIN 2.3 g/dL (3.4-5.0); ALKALINE PHOSPHATASE 69 Units/L (46-116); ASPARTATE AMINO TRANSFERASE 17 Units/L (15-37); BLOOD UREA NITROGEN 11 mg/dL (7-18); CALCIUM 8.5 mg/dL (8.5-10.1); CARBON DIOXIDE 32.4 mmol/L (21-32); CHLORIDE 105 mmol/L (98-107); COR CA(FOR HYPOALB) 9.9 mg/dL (8.5-10.1); COR NA(FOR HYPERGLY) 142 mmol/L (136-145); CREATININE 0.73 mg/dL (0.70-1.30); SODIUM 142 mmol/L (136-145); TOTAL PROTEIN 5.9 g/dL (6.4-8.2); eGFR NON BLACK RACES > 60 (>60)
[2022-06-02] MEDS: PEPCID TAB 20 MG PO SCH ×2 (08:15→20:40)
[2022-06-02] MEDS: LOPRESSOR TAB 25 MG PO SCH ×2 (08:15→20:45)
[2022-06-02] MEDS: K-DUR TAB 20 MEQ PO PRN (08:16)
[2022-06-02] MEDS: GLUCOPHAGE XR 24-HR PO SCH (08:16)
[2022-06-02] MEDS: ACTOS PO SCH (08:16)
[2022-06-02] MEDS: LOVENOX INJ 40 MG SYR SC SCH (08:17)
[2022-06-02] MEDS: VANCOMYCIN IV *PREMIX 1 G/200 ML BAG 1 G/200 ML PIGGYBACK IV SCH ×2 (11:41→20:39)
[2022-06-02] MEDS: TYLENOL 325 MG TAB PO PRN (12:23)
[2022-06-02] MEDS ORDERED: NORCO 5/325 MG TAB PO PRN (13:07)
--- NOTE | 2022-06-02 13:07 | PCM.PROG ---
Progress Note Progress Note for Day of Date of Exam: 06/02/22 Subjective Subjective: Pt is a 76 year old male s/p amputation 2,3,4,5th toes. This morning patient has been resting in bed. He is conversational. No acute events overnight. Labs: Wbc 7.2, Hgb 10.4, Plt 303, Na 142, K 3.7, Creatinine 0.73, Glucose 111, Wound culture pending. He is currently receiving antibiotics IV Vancomycin. General surgery-Dr Nunez following. Continue with current treatment, wound care, and plan for revision and skin closure early next week. Otherwise continue with current treatment plan and monitor. Past Medical Family Social History Past Med/Fam/Surg Hx: No changes since H&P Allergies: Allergies Penicillins Allergy (Mild, Verified 12/25/18 19:56) Sulfa (Sulfonamide Antibiotics) [SULFA] Allergy (Mild, Verified 12/25/18 19:56) Review of Systems ROS: No change since H&P Vital Signs and I&O's Vital Signs: Temperature 97.6 F Pulse Rate [Brachial] 57 Pulse Rate 83 Respiratory Rate 20 Blood Pressure [Left Arm] 161/74 Blood Pressure [Right Arm] 130/74 Blood Pressure 146/88 O2 Sat by Pulse Oximetry 93 Intake and Output: Intake & Output 05/30/22 05/31/22 06/01/22 06/02/22 23:59 23:59 23:59 23:59 Intake Total 7895 / 7895 5100 / 5100 3981 / 3981 1388 / 1388 Output Total 320 / 320 Balance 7895 / 7895 5100 / 5100 3661 / 3661 1388 / 1388 Physical Exam Oriented: Normal Eyes: Normal Ear: Normal Nose: Normal Throat: Normal Respiratory: Normal Cardiovascular: Normal : Normal Auscultation: Bowel Sounds: Normal Tenderness: Normal Skin: Other (dressing was changed as sbove . no active infection or necrosis ..) Musculoskeletal: Right, Left, Foot and Tender Psychiatric: Normal Mood Description: Calm Affect: Normal Speech Pattern: Clear and Appropriate Laboratory and Diagnostics Result Diagrams: 06/02/22 05:58 06/02/22 05:58 Labs: 06/01/22 08:14 Foot - Left Wound Culture - Preliminary 05/27/22 13:50 Toe - Left Third Wound Gram Stain - Final 05/27/22 13:50 Toe - Left Third Wound Culture - Final Proteus Vulgaris 05/25/22 11:00 Foot - Left Wound Gram Stain - Final 05/25/22 11:00 Foot - Left Wound Culture - Final Proteus Vulgaris 05/20/22 04:30 Blood Blood Culture - Final 05/20/22 04:46 Blood Blood Culture - Final 05/17/22 19:33 Foot - Left Wound Gram Stain - Final 05/17/22 19:33 Foot - Left Wound Culture - Final Proteus Vulgaris Enterococcus Faecalis Laboratory WBC 7.2 X10^3/uL (3.6-10.0) 06/02/22 05:58 RBC 3.47 X10^6/uL (4.7-6.0) L 06/02/22 05:58 Hgb 10.4 g/dL (13.5-18.0) L 06/02/22 05:58 Hct 30.4 % (42.0-54.0) L 06/02/22 05:58 MCV 87.6 fL (80.0-100.0) 06/02/22 05:58 MCH 30.0 pg (27.0-34.0) 06/02/22 05:58 MCHC 34.2 g/dL (33.0-35.0) 06/02/22 05:58 RDW 14.6 % (11.6-16.5) 06/02/22 05:58 Plt Count 303 X10^3/uL (150.0-450.0) 06/02/22 05:58 MPV 6.2 fL (7.4-11.0) L 06/02/22 05:58 Neut % (Auto) 64.8 % (42.0-75.0) 06/02/22 05:58 Lymph % (Auto) 25.9 % (21.0-51.0) 06/02/22 05:58 [place] % (Auto) 6.9 % (0.0-13.0) 06/02/22 05:58 Eos % (Auto) 1.8 % (0.9-2.9) 06/02/22 05:58 Baso % (Auto) 0.6 % (0.2-1.0) 06/02/22 05:58 Neut # (Auto) 4.7 x10^3/uL (2.2-4.8) 06/02/22 05:58 Lymph # (Auto) 1.9 X10^3/uL (1.3-2.9) 06/02/22 05:58 [place] # (Auto) 0.5 x10^3/uL (0.3-0.8) 06/02/22 05:58 Eos # (Auto) 0.1 x10^3/uL (0.0-0.2) 06/02/22 05:58 Baso # (Auto) 0.0 X10^3/uL (0.0-0.1) 06/02/22 05:58 Absolute Nucleated RBC 0.0 /100WBC 06/02/22 05:58 Sodium 142 mmol/L (136-145) 06/02/22 05:58 Corrected Sodium 142 mmol/L (136-145) 06/02/22 05:58 Potassium 3.7 mmol/L (3.5-5.1) 06/02/22 05:58 Chloride 105 mmol/L (98-107) 06/02/22 05:58 Carbon Dioxide 32.4 mmol/L (21-32) H 06/02/22 05:58 BUN 11 mg/dL (7-18) 06/02/22 05:58 Creatinine 0.73 mg/dL (0.70-1.30) 06/02/22 05:58 Est GFR (MDRD) Af Amer > 60 (>60) 06/02/22 05:58 Est GFR (MDRD) Non-Af > 60 (>60) 06/02/22 05:58 Glucose 111 mg/dL (65-99) H 06/02/22 05:58 POC Glucose (mg/dL) 133 mg/dL (65-99) H 06/02/22 12:42 Hemoglobin A1c 8.4 % 05/20/22 04:46 Calcium 8.5 mg/dL (8.5-10.1) 06/02/22 05:58 Corrected Calcium 9.9 mg/dL (8.5-10.1) 06/02/22 05:58 Total Bilirubin 0.30 mg/dL (0.2-1.0) 06/02/22 05:58 AST 17 Units/L (15-37) 06/02/22 05:58 ALT 12 Units/L (12-78) 06/02/22 05:58 Alkaline Phosphatase 69 Units/L (46-116) 06/02/22 05:58 Total Protein 5.9 g/dL (6.4-8.2) L 06/02/22 05:58 Albumin 2.3 g/dL (3.4-5.0) L 06/02/22 05:58 Globulin 3.6 g/dL (2.5-4.5) 06/02/22 05:58 Albumin/Globulin Ratio 0.6 Ratio (1.1-2.1) L 06/02/22 05:58 Specimen Type Clean catch urine 05/20/22 09:19 Urine Color Yellow (YELLOW) 05/20/22 09:19 Urine Appearance Clear (CLEAR) 05/20/22 09:19 Urine pH 6.0 (5.0 - 8.0) 05/20/22 09:19 Ur Specific [place] 1.020 (1.000-1.030) 05/20/22 09:19 Urine Protein 2+ (NEGATIVE) 05/20/22 09:19 Urine Glucose (UA) Negative (NEGATIVE) 05/20/22 09:19 Urine Ketones Negative (NEGATIVE) 05/20/22 09:19 Urine Blood Negative (NEGATIVE) 05/20/22 09:19 Urine Nitrite Negative (NEGATIVE) 05/20/22 09:19 Urine Bilirubin Negative (NEGATIVE) 05/20/22 09:19 Urine Urobilinogen Normal (NORMAL) 05/20/22 09:19 Ur Leukocyte Esterase Negative (NEGATIVE) 05/20/22 09:19 Urine RBC None seen /HPF (0-3) 05/20/22 09:19 Urine WBC None seen /HPF (0-5) 05/20/22 09:19 Ur Squamous Epith Cells Rare /HPF (NEGATIVE) 05/20/22 09:19 Urine Bacteria Trace /HPF (NEGATIVE) 05/20/22 09:19 Urine Mucus Few /HPF (NEGATIVE) 05/20/22 09:19 Ur Culture Indicated? No/not indicated 05/20/22 09:19 Vancomycin Trough 20.8 ug/mL (15-20) H* 05/22/22 20:15 Tissue Pathology To follow 05/27/22 13:50 Plan (1) Cellulitis of both feet: Status: Acute Plan: CONSULT GENERAL SURGERY, VANCOMYCIN 1G IV Q12H, LOVENOX 40MG SC DAILY, OTBS ACHS, HUMULIN R SLIDING SCALE. HIS HOME MEDICATIONS OF PEPCID, LOPRESSOR, ACTOS, AND CRESTOR WERE RESUMED. OBTAIN LLE MRI (2) Physical deconditioning: Status: Acute (3) PAD (peripheral artery disease): Status: Acute (4) Hyperglycemia: Status: Acute (5) GERD (gastroesophageal reflux disease): Status: Chronic Qualifiers: Esophagitis presence: esophagitis presence not specified Qualified Code(s): K21.9 - Gastro-esophageal reflux disease without esophagitis (6) Dyslipidemia: Status: Chronic (7) Hypertension: Status: Chronic Qualifiers: Hypertension type: primary hypertension Qualified Code(s): I10 - Essential (primary) hypertension
--- NOTE | 2022-06-02 18:25 | RAD ---
EXAM: CHEST X-RAYHISTORY: Decreased O2 saturation. Respiratory distress.TECHNIQUE: AP CXR dated June 30, 2022 at 5:28 PM.COMPARISON: CXR dated July 03, 2021.FINDINGS:There is evidence for cardiomegaly. The pulmonary vascularity and interstitial markings are diffusely prominent, consistent with mild to moderate CHF or volume overload in the appropriate clinical setting; differential diagnosis includes (but is not limited to) mild bronchitis and interstitial pneumonia in the appropriate clinical setting.There is no gross focal lung consolidation, pleural effusion, or pneumothorax seen. The visualized bony structures are within normal limits.IMPRESSION:1. Findings consistent with mild to moderate CHF or volume overload in the appropriate clinical setting (new finding); DDX includes (but is not limited to) mild bronchitis and interstitial pneumonia in the appropriate clinical setting.2. Recommend clinical correlation and appropriate follow-up CXR evaluation to ensure interval clearance as clinically warranted.3. Consider follow-up noncontrast chest CT for further characterization as clinically warranted.Electronically signed by: Nigel Feliz (Jun 02, 2022 18:23:51)
[2022-06-02] MEDS ORDERED: LASIX IVP ONE (18:40)
[2022-06-02] MEDS: CRESTOR TAB 10 MG PO SCH (20:40)
[2022-06-02] MEDS: SNACK - Diabetic Appropriate PO SCH (20:41)
[2022-06-03] MEDS: MERREM VIAL 500 MG in NS 100 ML IV 100 ML IV SCH ×3 (05:05→22:44)
[2022-06-03 06:32] LABS: BASOPHILS # (AUTO) 0.1 X10^3/uL (0.0-0.1); BASOPHILS % (AUTO) 0.7 % (0.2-1.0); EOSINOPHILS # (AUTO) 0.1 x10^3/uL (0.0-0.2); EOSINOPHILS % (AUTO) 1.1 % (0.9-2.9); HEMATOCRIT 30.2 % (42.0-54.0); HEMOGLOBIN 10.3 g/dL (13.5-18.0); LYMPHOCYTES # (AUTO) 1.6 X10^3/uL (1.3-2.9); LYMPHOCYTES % (AUTO) 16.6 % (21.0-51.0); MEAN CORPUSCULAR HEMOGLOBIN 29.9 pg (27.0-34.0); MEAN PLATELET VOLUME 6.8 fL (7.4-11.0); MONOCYTES # (AUTO) 0.7 x10^3/uL (0.3-0.8); MONOCYTES % (AUTO) 7.2 % (0.0-13.0); NEUTROPHILS # (AUTO) 6.9 x10^3/uL (2.2-4.8); NEUTROPHILS % (AUTO) 74.4 % (42.0-75.0); RED BLOOD COUNT 3.43 X10^6/uL (4.7-6.0); WHITE BLOOD COUNT 9.3 X10^3/uL (3.6-10.0)
[2022-06-03 06:47] LABS: ALANINE AMINOTRANSFERASE 34 Units/L (12-78); ALBUMIN 2.3 g/dL (3.4-5.0); ALKALINE PHOSPHATASE 101 Units/L (46-116); ASPARTATE AMINO TRANSFERASE 41 Units/L (15-37); BLOOD UREA NITROGEN 16 mg/dL (7-18); CALCIUM 8.5 mg/dL (8.5-10.1); CHLORIDE 106 mmol/L (98-107); COR CA(FOR HYPOALB) 9.9 mg/dL (8.5-10.1); CREATININE 0.97 mg/dL (0.70-1.30); SODIUM 142 mmol/L (136-145); TOTAL PROTEIN 5.8 g/dL (6.4-8.2); eGFR NON BLACK RACES > 60 (>60)
[2022-06-03] MEDS ORDERED: NS 1,000 ML IV 1,000 ML ONE (08:49)
[2022-06-03] MEDS ORDERED: ZOFRAN INJ 4 MG VIAL ONE (08:58)
[2022-06-03] MEDS ORDERED: PEPCID 20 MG VIAL ONE (08:58)
[2022-06-03] MEDS ORDERED: VERSED ONE (08:58)
[2022-06-03] MEDS ORDERED: REGLAN INJ 10 MG VIAL ONE (08:58)
[2022-06-03] MEDS: LOVENOX INJ 40 MG SYR SC SCH (09:00)
[2022-06-03] MEDS: ACTOS PO SCH (09:00)
[2022-06-03] MEDS ORDERED: DIPRIVAN VIAL 20 ML ONE (09:14)
[2022-06-03] MEDS ORDERED: BETADINE SOLN ONE (09:21)
[2022-06-03] MEDS ORDERED: XYLOCAINE 1 % (PLAIN) ONE (09:26)
[2022-06-03] MEDS ORDERED: XYLOCAINE 2 % (PLAIN) ONE (09:29)
[2022-06-03] MEDS ORDERED: KETAMINE HCL ONE (09:29)
[2022-06-03] MEDS ORDERED: POLYMYXIN B SULFATE ONE (10:03)
[2022-06-03] MEDS ORDERED: BACTROBAN TOPICAL OINT ONE (10:23)
[2022-06-03] MEDS: LOPRESSOR TAB 25 MG PO SCH ×2 (10:50→21:24)
[2022-06-03] MEDS: VANCOMYCIN IV *PREMIX 1 G/200 ML BAG 1 G/200 ML PIGGYBACK IV SCH ×2 (11:37→21:24)
[2022-06-03] MEDS: GLUCOPHAGE XR 24-HR PO SCH (13:38)
[2022-06-03] MEDS: PEPCID TAB 20 MG PO SCH ×2 (13:38→21:24)
[2022-06-03] MEDS: NS 1,000 ML IV 1,000 ML IV SCH ×2 (17:32→19:37)
[2022-06-03] MEDS ORDERED: PHARMACY COMMENT IV ONE (20:30)
[2022-06-03 20:45] LABS: CREATININE 0.94 mg/dL (0.70-1.30); VANCOMYCIN,TROUGH 17.1 ug/mL (15-20)
[2022-06-03] MEDS: CRESTOR TAB 10 MG PO SCH (21:24)
[2022-06-03] MEDS: SNACK - Diabetic Appropriate PO SCH (22:40)
[2022-06-04] MEDS: MERREM VIAL 500 MG in NS 100 ML IV 100 ML IV SCH (05:56)
[2022-06-04 09:04] VITALS: BP 163/70
[2022-06-04] MEDS: LOPRESSOR TAB 25 MG PO SCH (09:05)
[2022-06-04] MEDS: LOVENOX INJ 40 MG SYR SC SCH (09:10)
[2022-06-04] MEDS: PEPCID TAB 20 MG PO SCH (09:11)
[2022-06-04] MEDS: ACTOS PO SCH (09:11)
[2022-06-04] MEDS: VANCOMYCIN IV *PREMIX 1 G/200 ML BAG 1 G/200 ML PIGGYBACK IV SCH (09:11)
[2022-06-04] MEDS: GLUCOPHAGE XR 24-HR PO SCH (09:12)
--- NOTE | 2022-06-04 09:58 | DR.PROGNOT ---
HOSPITAL PROGRESS NOTE Progress Note for Day of: Progress Note Date: 06/04/22 Chief Complaint Chief Complaint: s/p transmetatarsal amputation 2,3,4,5 th Lt foot . doing fairy well . no infection , no necrosis . Past Medical Family Social History Past Med/Fam/Surg Hx: No changes since H&P Allergies: Allergies Penicillins Allergy (Mild, Verified 12/25/18 19:56) Sulfa (Sulfonamide Antibiotics) [SULFA] Allergy (Mild, Verified 12/25/18 19:56) Review Of Systems ROS: No change since H&P Vital Signs Vital Signs: Temperature 98.7 F Pulse Rate [Brachial] 56 Pulse Rate 53 Respiratory Rate 20 Blood Pressure [Left Arm] 163/70 Blood Pressure [Right Arm] 130/74 Blood Pressure 147/73 O2 Sat by Pulse Oximetry 94 Physical Exam Oriented: Normal Eyes: Normal Ear: Normal Nose: Normal Throat: Normal Respiratory: Normal Cardiovascular: Normal : Normal GI:Auscultation: Normal GI:Palpation: Normal GI: Tenderness: Normal Skin: Other (dressing was changed as sbove . no active infection or necrosis ..) Psychiatric: Normal Mood Description: Calm Affect: Normal Speech Pattern: Clear and Appropriate Laboratory and Diagnostics Result Diagrams: 06/03/22 05:41 06/03/22 20:15 Labs: 06/01/22 08:14 Foot - Left Wound Culture - Preliminary 05/27/22 13:50 Toe - Left Third Wound Gram Stain - Final 05/27/22 13:50 Toe - Left Third Wound Culture - Final Proteus Vulgaris 05/25/22 11:00 Foot - Left Wound Gram Stain - Final 05/25/22 11:00 Foot - Left Wound Culture - Final Proteus Vulgaris 05/20/22 04:30 Blood Blood Culture - Final 05/20/22 04:46 Blood Blood Culture - Final 05/17/22 19:33 Foot - Left Wound Gram Stain - Final 05/17/22 19:33 Foot - Left Wound Culture - Final Proteus Vulgaris Enterococcus Faecalis Laboratory WBC 9.3 X10^3/uL (3.6-10.0) 06/03/22 05:41 RBC 3.43 X10^6/uL (4.7-6.0) L 06/03/22 05:41 Hgb 10.3 g/dL (13.5-18.0) L 06/03/22 05:41 Hct 30.2 % (42.0-54.0) L 06/03/22 05:41 MCV 88.0 fL (80.0-100.0) 06/03/22 05:41 MCH 29.9 pg (27.0-34.0) 06/03/22 05:41 MCHC 34.0 g/dL (33.0-35.0) 06/03/22 05:41 RDW 15.0 % (11.6-16.5) 06/03/22 05:41 Plt Count 256 X10^3/uL (150.0-450.0) 06/03/22 05:41 MPV 6.8 fL (7.4-11.0) L 06/03/22 05:41 Neut % (Auto) 74.4 % (42.0-75.0) 06/03/22 05:41 Lymph % (Auto) 16.6 % (21.0-51.0) L 06/03/22 05:41 [place] % (Auto) 7.2 % (0.0-13.0) 06/03/22 05:41 Eos % (Auto) 1.1 % (0.9-2.9) 06/03/22 05:41 Baso % (Auto) 0.7 % (0.2-1.0) 06/03/22 05:41 Neut # (Auto) 6.9 x10^3/uL (2.2-4.8) H 06/03/22 05:41 Lymph # (Auto) 1.6 X10^3/uL (1.3-2.9) 06/03/22 05:41 [place] # (Auto) 0.7 x10^3/uL (0.3-0.8) 06/03/22 05:41 Eos # (Auto) 0.1 x10^3/uL (0.0-0.2) 06/03/22 05:41 Baso # (Auto) 0.1 X10^3/uL (0.0-0.1) 06/03/22 05:41 Absolute Nucleated RBC 0.1 /100WBC 06/03/22 05:41 Sodium 142 mmol/L (136-145) 06/03/22 05:41 Corrected Sodium TNP 06/03/22 05:41 Potassium 4.5 mmol/L (3.5-5.1) 06/03/22 05:41 Chloride 106 mmol/L (98-107) 06/03/22 05:41 Carbon Dioxide 32.0 mmol/L (21-32) 06/03/22 05:41 BUN 16 mg/dL (7-18) 06/03/22 05:41 Creatinine 0.94 mg/dL (0.70-1.30) 06/03/22 20:15 Est GFR (MDRD) Af Amer > 60 (>60) 06/03/22 05:41 Est GFR (MDRD) Non-Af > 60 (>60) 06/03/22 05:41 Glucose 103 mg/dL (65-99) H 06/03/22 05:41 POC Glucose (mg/dL) 115 mg/dL (65-99) H 06/04/22 05:52 Hemoglobin A1c 8.4 % 05/20/22 04:46 Calcium 8.5 mg/dL (8.5-10.1) 06/03/22 05:41 Corrected Calcium 9.9 mg/dL (8.5-10.1) 06/03/22 05:41 Total Bilirubin 0.30 mg/dL (0.2-1.0) 06/03/22 05:41 AST 41 Units/L (15-37) H 06/03/22 05:41 ALT 34 Units/L (12-78) 06/03/22 05:41 Alkaline Phosphatase 101 Units/L (46-116) 06/03/22 05:41 Total Protein 5.8 g/dL (6.4-8.2) L 06/03/22 05:41 Albumin 2.3 g/dL (3.4-5.0) L 06/03/22 05:41 Globulin 3.5 g/dL (2.5-4.5) 06/03/22 05:41 Albumin/Globulin Ratio 0.7 Ratio (1.1-2.1) L 06/03/22 05:41 Specimen Type Clean catch urine 05/20/22 09:19 Urine Color Yellow (YELLOW) 05/20/22 09:19 Urine Appearance Clear (CLEAR) 05/20/22 09:19 Urine pH 6.0 (5.0 - 8.0) 05/20/22 09:19 Ur Specific [place] 1.020 (1.000-1.030) 05/20/22 09:19 Urine Protein 2+ (NEGATIVE) 05/20/22 09:19 Urine Glucose (UA) Negative (NEGATIVE) 05/20/22 09:19 Urine Ketones Negative (NEGATIVE) 05/20/22 09:19 Urine Blood Negative (NEGATIVE) 05/20/22 09:19 Urine Nitrite Negative (NEGATIVE) 05/20/22 09:19 Urine Bilirubin Negative (NEGATIVE) 05/20/22 09:19 Urine Urobilinogen Normal (NORMAL) 05/20/22 09:19 Ur Leukocyte Esterase Negative (NEGATIVE) 05/20/22 09:19 Urine RBC None seen /HPF (0-3) 05/20/22 09:19 Urine WBC None seen /HPF (0-5) 05/20/22 09:19 Ur Squamous Epith Cells Rare /HPF (NEGATIVE) 05/20/22 09:19 Urine Bacteria Trace /HPF (NEGATIVE) 05/20/22 09:19 Urine Mucus Few /HPF (NEGATIVE) 05/20/22 09:19 Ur Culture Indicated? No/not indicated 05/20/22 09:19 Vancomycin Trough 17.1 ug/mL (15-20) 06/03/22 20:15 Tissue Pathology To follow 06/03/22 10:20 Assessment and Plan 1: s/p transmetatarsal amputation 2,3,4,5 th toes . diabetic Lt foot ulcer dorsal aspect , small vessel disease DM with Neuropathy . same Vancomycin . same local care. may have partial Wt bearing LT foot with walker . Problem Patient Problems: Patient Problems (Updated 05/18/22 @ 23:12 by Umberto Mack) Physical deconditioning (Acute) R53.81 Hyperglycemia (Acute) R73.9 PAD (peripheral artery disease) (Acute) I73.9 Cellulitis of both feet (Acute) L03.115, L03.116 GERD (gastroesophageal reflux disease) (Chronic) K21.9 Dyslipidemia (Chronic) E78.5 Hypertension (Chronic) I10
== END 2022-06-04 11:13 | disposition swing bed (61) | DRG 603 ==
LOC: ER 14:07 → MED/SURG 22:26
PROVIDERS: ADMIT Internal Medicine; ATTEND Obstetrics & Gynecology Obstetrics
PROC: WOUNDCL (2022-06-03 09:10)
DX: B96.4 Proteus (mirabilis) (morganii) as the cause of diseases classified elsewhere; I10 Essential (primary) hypertension; E78.2 Mixed hyperlipidemia; R19.7 Diarrhea, unspecified; L03.116 Cellulitis of left lower limb; R53.1 Weakness; L03.115 Cellulitis of right lower limb; I96 Gangrene, not elsewhere classified; R26.89 Other abnormalities of gait and mobility; R26.81 Unsteadiness on feet; E11.65 Type 2 diabetes mellitus with hyperglycemia; B95.2 Enterococcus as the cause of diseases classified elsewhere

== ENCOUNTER 2022-06-04 11:14 | Inpatient (IN) ==
[2022-06-04] MEDS ORDERED: TYLENOL 325 MG TAB PO PRN (12:30)
[2022-06-04] MEDS ORDERED: POTASSIUM CHLORIDE LIQ 20 MEQ UDC PO PRN (12:30)
[2022-06-04] MEDS ORDERED: K-DUR TAB 20 MEQ PO PRN (12:30)
[2022-06-04] MEDS ORDERED: K-RIDER 10 MEQ/NS 100 ML 10 MEQ/100 ML BAG IV PRN (12:30)
[2022-06-04] MEDS ORDERED: MICRO K EXTEN CAP 10 MEQ PO PRN (12:30)
[2022-06-04] MEDS ORDERED: POTASSIUM CHL 40 MEQ/NS 0.45% 500 ML IV PRN (12:30)
[2022-06-04] MEDS ORDERED: KLOR-CON PO PRN (12:30)
[2022-06-04] MEDS ORDERED: POTASSIUM CHL 60 MEQ/NS 0.45% 500 ML IV PRN (12:30)
[2022-06-04] MEDS ORDERED: NORCO 5/325 MG TAB PO PRN (12:30)
[2022-06-04] MEDS: MERREM VIAL 500 MG in NS 100 ML IV 100 ML IV SCH ×2 (15:00→22:56)
[2022-06-04] MEDS: NS 1,000 ML IV 1,000 ML IV SCH (19:00)
[2022-06-04] MEDS: SNACK - Diabetic Appropriate PO SCH ×2 (20:00→22:15)
[2022-06-04 20:52] LABS: CREATININE 0.95 mg/dL (0.70-1.30); VANCOMYCIN,TROUGH 17.9 ug/mL (15-20)
[2022-06-04] MEDS: CRESTOR TAB 10 MG PO SCH (21:23)
[2022-06-04] MEDS: PEPCID TAB 20 MG PO SCH (21:23)
[2022-06-04] MEDS: LOPRESSOR TAB 25 MG PO SCH (21:23)
[2022-06-04] MEDS: VANCOMYCIN IV *PREMIX 1 G/200 ML BAG 1 G/200 ML PIGGYBACK IV SCH (21:23)
--- NOTE | 2022-06-04 21:43 | PT/OTEVAL ---
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 Reports that his granddaughter, her and her child live with him. Reports that he was able to perform all mobility tasks within the home using a rollator walker for gait tasks but that ambulation was becoming more difficulty due to trouble with his legs and he wants to get an electric scooter. Pt does report currently having a complicated home situation and unsure if his granddaughter and her will be able to assist him (does not think that they will still be residing with him up on discharge). -Will continue to follow up with pt/case management with all pending discharge activities. History of Present Illness: Pt is a 76 year old male who has been admitted to [facility] for infection to L toes and underwent surgical procedures to decrease infection with most recent procedure on 06/03 for L transmet amput ation (2-5) and wound closure. Pt is PWB with FWW with LLE. Pt has been transitioned to swing bed program for rehab to facilitate improved strength and mobility and safe discharge planning. - COGNITION Mental Status: Alert, Oriented, Name, Place Communication Status: Verbal Ability to Follow Directions: 1 Step Affect: Calm - PAIN Generalized Pain Scale: No Pain Comments: No reports of pain at time of evaluation. - BED MOBILITY Rolling: Supervision Scooting: Minimal - TRANSFERS Supine to Sit: Minimal Sit to Stand: Minimal Sit to Stand Comment: Cues for proper hand placement and WB restrictions to LLE Sit or Stand Pivot: Minimal - BALANCE Static Sitting: Good Standing: Poor Dynamic Sitting: Good Standing: Poor Balance Comment: Poor- - NEUROMOTOR/SENSATION Roberto. Lower Ext Sensation: Impaired Coordination: WFL Proprioception: WFL Comments: Due to diabetic neuropathy - HAND DOMINANCE Extremity Function: Hand Dominance: Right - ROM Bilateral LE ROM: WFL Muscle Tone: WFL - STRENGTH Bilateral LE Strength Number: 3 Other comment: 3+/5 grossly graded to B hips, knees and R ankle- L ankle NT d/t recent sx - GAIT Pt. ambulates how many feet?: 3 Amount of Assistance Required: Minimal Type of Assistive Device: Rolling Walker Comments: Side stepping at EOB- cues for maintaining PWB to LLE - OBJECTIVE MEASURES & STANDARDS Objective Measures & Standards: Elderly Mobility Scale: 520. 30 Second Sit to Stand: 0 (requires min assist for transfer) - TREATMENT Date: 06/04/22 Time: 13:45 Treatment Type: Evaluation Treatment Provided: Therapeutic Activities - TOTAL TREATMENT TIME Total Time: 75 - POST ASSESSMENT Post Assessment Comment: Pt was found supine in bed in room & agreeable to participation in PT services. Pt familiar to this PT from acute care admission- pt does report some changes to his home situation and that he doesn't believe his granddaughter who was living with him still will be doing so. He does report that he has another family member who is going to assist him (however, unable to get a clear picture of situation from patient at this time). Pt transitioned from supine to sitting EOB with mod assist. At EOB, pt education provided on PWB to LLE with pt verbalizing understanding. Pt able to transition from sit to stand at EOB with FWW and maintaining PWB to LLE with min assist. Pt able to tolerate standing x 2 minutes before fatigue and requiring seated therapeutic rest break. Pt then performed an additional sit to stand transfer with min assist. Pt able to side step at EOB with FWW with min assist with mod cues for PWB status. Pt then returned to supine position in bed following session to elevate LE. Pt was left with call suarez in reach and all needs met. Pt would benefit from continued PT services to address remaining deficits & facilitate highest level of function & safe discharge planning. - EXIT DISPOSITION Exit Position: BED Call light in reach: Yes Bed Alarm On: NO PT/OT ASSESSMENT - PT Problem List: Decreased Bed Mobility, Decreased Transfers, Decreased Gait, Decr eased Balance, Decreased Safety, Decreased LE Strength - PT GOALS Short Term Goals Days: 10 Mobility: Pt will perform bed mobility tasks with supervision Transfers: Pt will perform functional transfers with supervision & maintain WB status Gait: Pt will ambulate 25ft with FWW with CGA & maintain PWB to LLE Balance: Pt will increase static standing balance to good- Budget And Policy Analyst Goals Days: 20 Mobility: Pt will perform bed mobility tasks with mod I Transfers: Pt will perform functional transfers with mod I Gait: Pt will ambulate 150ft with FWW with mod I & maintain appropriate WB status Balance: Pt will increase dynamic standing balance to fair/fair+ ROM/Strength: Pt will increase BLE strength to 5/5 Others: Pt will ascend/descend 5 stairs with HR with supervision - PATIENT GOALS Patient/Family Goals: "I need to get stronger and moving better" Goals Discussed with Patient/Family: Yes Rehabilitation Potential: Good to meet stated goals Justification for Potential: Facilitate highest level of function & safe dsicharge planning If yes, explain: PWB to LLE - PLAN Suggested Treatment Plan: Bed Mobility Training, Therapeutic Activity, Gait Training, Neuro Re-education, Therapeutic Ex with HEP, Patient Education - FREQUENCY AND DURATION PT: 5x per week x 20 days Expected Continuation of Care at Discharge: Home Health Anticipated Equipment Needs: TBD pending progress
[2022-06-05] MEDS: MERREM VIAL 500 MG in NS 100 ML IV 100 ML IV SCH ×3 (05:18→22:51)
[2022-06-05 06:32] LABS: BASOPHILS # (AUTO) 0.1 X10^3/uL (0.0-0.1); BASOPHILS % (AUTO) 0.6 % (0.2-1.0); EOSINOPHILS # (AUTO) 0.1 x10^3/uL (0.0-0.2); EOSINOPHILS % (AUTO) 1.2 % (0.9-2.9); HEMATOCRIT 31.4 % (42.0-54.0); HEMOGLOBIN 10.7 g/dL (13.5-18.0); LYMPHOCYTES # (AUTO) 1.8 X10^3/uL (1.3-2.9); LYMPHOCYTES % (AUTO) 17.6 % (21.0-51.0); MEAN CORPUSCULAR HEMOGLOBIN 29.7 pg (27.0-34.0); MEAN CORPUSCULAR HGB CONC 34.1 g/dL (33.0-35.0); MEAN CORPUSCULAR VOLUME 87.2 fL (80.0-100.0); MEAN PLATELET VOLUME 7.1 fL (7.4-11.0); MONOCYTES # (AUTO) 0.9 x10^3/uL (0.3-0.8); MONOCYTES % (AUTO) 8.7 % (0.0-13.0); NEUTROPHILS # (AUTO) 7.5 x10^3/uL (2.2-4.8); NEUTROPHILS % (AUTO) 71.9 % (42.0-75.0); WHITE BLOOD COUNT 10.4 X10^3/uL (3.6-10.0)
[2022-06-05 06:47] LABS: ALANINE AMINOTRANSFERASE 24 Units/L (12-78); ALBUMIN 2.5 g/dL (3.4-5.0); ALKALINE PHOSPHATASE 100 Units/L (46-116); ASPARTATE AMINO TRANSFERASE 21 Units/L (15-37); BLOOD UREA NITROGEN 16 mg/dL (7-18); CARBON DIOXIDE 33.7 mmol/L (21-32); CHLORIDE 103 mmol/L (98-107); COR CA(FOR HYPOALB) 10.2 mg/dL (8.5-10.1); COR NA(FOR HYPERGLY) 141 mmol/L (136-145); CREATININE 0.78 mg/dL (0.70-1.30); SODIUM 141 mmol/L (136-145); TOTAL PROTEIN 6.3 g/dL (6.4-8.2); eGFR NON BLACK RACES > 60 (>60)
[2022-06-05] MEDS: ACTOS PO SCH (08:54)
[2022-06-05] MEDS: LOVENOX INJ 40 MG SYR SC SCH (08:54)
[2022-06-05] MEDS: VANCOMYCIN IV *PREMIX 1 G/200 ML BAG 1 G/200 ML PIGGYBACK IV SCH ×2 (08:54→21:50)
[2022-06-05] MEDS: GLUCOPHAGE XR 24-HR PO SCH (08:54)
[2022-06-05] MEDS: LOPRESSOR TAB 25 MG PO SCH ×2 (08:55→21:49)
[2022-06-05] MEDS: PEPCID TAB 20 MG PO SCH ×2 (08:55→21:49)
[2022-06-05] MEDS ORDERED: HYDROGEN PEROXIDE 3% ONE (10:41)
[2022-06-05] MEDS ORDERED: BACTROBAN TOPICAL OINT ONE (10:45)
[2022-06-05 12:11] VITALS: BMI 24.0
--- NOTE | 2022-06-05 13:33 | DR.PROGNOT ---
HOSPITAL PROGRESS NOTE Progress Note for Day of: Progress Note Date: 06/05/22 Chief Complaint Chief Complaint: dressing was changed .. skin edges are viable . no necrosis or active infection Past Medical Family Social History Allergies: Allergies Penicillins Allergy (Mild, Verified 12/25/18 19:56) Sulfa (Sulfonamide Antibiotics) [SULFA] Allergy (Mild, Verified 12/25/18 19:56) Vital Signs Vital Signs: Temperature 97.8 F Pulse Rate [Brachial] 55 Respiratory Rate 18 Blood Pressure [Left Arm] 145/67 O2 Sat by Pulse Oximetry 93 Physical Exam Speech Pattern: Clear and Appropriate Laboratory and Diagnostics Result Diagrams: 06/05/22 05:43 06/05/22 05:43 Labs: Laboratory WBC 10.4 X10^3/uL (3.6-10.0) H 06/05/22 05:43 RBC 3.60 X10^6/uL (4.7-6.0) L 06/05/22 05:43 Hgb 10.7 g/dL (13.5-18.0) L 06/05/22 05:43 Hct 31.4 % (42.0-54.0) L 06/05/22 05:43 MCV 87.2 fL (80.0-100.0) 06/05/22 05:43 MCH 29.7 pg (27.0-34.0) 06/05/22 05:43 MCHC 34.1 g/dL (33.0-35.0) 06/05/22 05:43 RDW 15.0 % (11.6-16.5) 06/05/22 05:43 Plt Count 229 X10^3/uL (150.0-450.0) 06/05/22 05:43 MPV 7.1 fL (7.4-11.0) L 06/05/22 05:43 Neut % (Auto) 71.9 % (42.0-75.0) 06/05/22 05:43 Lymph % (Auto) 17.6 % (21.0-51.0) L 06/05/22 05:43 [place] % (Auto) 8.7 % (0.0-13.0) 06/05/22 05:43 Eos % (Auto) 1.2 % (0.9-2.9) 06/05/22 05:43 Baso % (Auto) 0.6 % (0.2-1.0) 06/05/22 05:43 Neut # (Auto) 7.5 x10^3/uL (2.2-4.8) H 06/05/22 05:43 Lymph # (Auto) 1.8 X10^3/uL (1.3-2.9) 06/05/22 05:43 [place] # (Auto) 0.9 x10^3/uL (0.3-0.8) H 06/05/22 05:43 Eos # (Auto) 0.1 x10^3/uL (0.0-0.2) 06/05/22 05:43 Baso # (Auto) 0.1 X10^3/uL (0.0-0.1) 06/05/22 05:43 Absolute Nucleated RBC 0.0 /100WBC 06/05/22 05:43 Sodium 141 mmol/L (136-145) 06/05/22 05:43 Corrected Sodium 141 mmol/L (136-145) 06/05/22 05:43 Potassium 4.0 mmol/L (3.5-5.1) 06/05/22 05:43 Chloride 103 mmol/L (98-107) 06/05/22 05:43 Carbon Dioxide 33.7 mmol/L (21-32) H 06/05/22 05:43 BUN 16 mg/dL (7-18) 06/05/22 05:43 Creatinine 0.78 mg/dL (0.70-1.30) 06/05/22 05:43 Est GFR (MDRD) Af Amer > 60 (>60) 06/05/22 05:43 Est GFR (MDRD) Non-Af > 60 (>60) 06/05/22 05:43 Glucose 114 mg/dL (65-99) H 06/05/22 05:43 POC Glucose (mg/dL) 115 mg/dL (65-99) H 06/05/22 05:56 Calcium 9.0 mg/dL (8.5-10.1) 06/05/22 05:43 Corrected Calcium 10.2 mg/dL (8.5-10.1) H 06/05/22 05:43 Total Bilirubin 0.50 mg/dL (0.2-1.0) 06/05/22 05:43 AST 21 Units/L (15-37) 06/05/22 05:43 ALT 24 Units/L (12-78) 06/05/22 05:43 Alkaline Phosphatase 100 Units/L (46-116) 06/05/22 05:43 Total Protein 6.3 g/dL (6.4-8.2) L 06/05/22 05:43 Albumin 2.5 g/dL (3.4-5.0) L 06/05/22 05:43 Globulin 3.8 g/dL (2.5-4.5) 06/05/22 05:43 Albumin/Globulin Ratio 0.7 Ratio (1.1-2.1) L 06/05/22 05:43 Vancomycin Trough 17.9 ug/mL (15-20) 06/04/22 20:15 Assessment and Plan 1: s/p transmetatarsal amputation fo 2,3,4,5 th metatarsals . DM, PVD , neuropathy . same local care and PT , ABT ..
[2022-06-05] MEDS: NS 1,000 ML IV 1,000 ML IV SCH (19:16)
[2022-06-05] MEDS: SNACK - Diabetic Appropriate PO SCH ×2 (20:42)
[2022-06-05] MEDS: CRESTOR TAB 10 MG PO SCH (21:49)
[2022-06-05] MEDS: NovoLIN R (or HumuLIN R) SUBCUT PRN (21:50)
[2022-06-06] MEDS: MERREM VIAL 500 MG in NS 100 ML IV 100 ML IV SCH ×3 (05:25→21:52)
[2022-06-06] MEDS: LOVENOX INJ 40 MG SYR SC SCH (09:01)
[2022-06-06] MEDS: LOPRESSOR TAB 25 MG PO SCH ×2 (09:02→20:24)
[2022-06-06] MEDS: GLUCOPHAGE XR 24-HR PO SCH (09:02)
[2022-06-06] MEDS: PEPCID TAB 20 MG PO SCH ×2 (09:02→20:24)
[2022-06-06] MEDS: ACTOS PO SCH (09:25)
[2022-06-06 09:30] LABS: CREATININE 0.88 mg/dL (0.70-1.30)
[2022-06-06 09:42] LABS: VANCOMYCIN,TROUGH 20.1 ug/mL (15-20)
[2022-06-06] MEDS: VANCOMYCIN IV *PREMIX 750 mg/150 ML BAG 750 MG/150 ML PIGGYBACK IV SCH ×2 (11:07→20:25)
[2022-06-06] MEDS: SNACK - Diabetic Appropriate PO SCH ×2 (20:04)
[2022-06-06] MEDS: NS 1,000 ML IV 1,000 ML IV SCH (20:04)
[2022-06-06] MEDS: CRESTOR TAB 10 MG PO SCH (20:24)
[2022-06-06] MEDS: NovoLIN R (or HumuLIN R) SUBCUT PRN (20:25)
[2022-06-07] MEDS: MERREM VIAL 500 MG in NS 100 ML IV 100 ML IV SCH ×3 (05:12→22:50)
[2022-06-07 05:13] LABS: BASOPHILS # (AUTO) 0.1 X10^3/uL (0.0-0.1); BASOPHILS % (AUTO) 1.4 % (0.2-1.0); EOSINOPHILS # (AUTO) 0.2 x10^3/uL (0.0-0.2); EOSINOPHILS % (AUTO) 2.9 % (0.9-2.9); HEMATOCRIT 32.2 % (42.0-54.0); HEMOGLOBIN 11.1 g/dL (13.5-18.0); LYMPHOCYTES % (AUTO) 27.8 % (21.0-51.0); MEAN CORPUSCULAR HEMOGLOBIN 29.8 pg (27.0-34.0); MEAN CORPUSCULAR HGB CONC 34.4 g/dL (33.0-35.0); MEAN CORPUSCULAR VOLUME 86.7 fL (80.0-100.0); MEAN PLATELET VOLUME 7.3 fL (7.4-11.0); MONOCYTES # (AUTO) 0.6 x10^3/uL (0.3-0.8); MONOCYTES % (AUTO) 8.2 % (0.0-13.0); NEUTROPHILS # (AUTO) 4.3 x10^3/uL (2.2-4.8); NEUTROPHILS % (AUTO) 59.7 % (42.0-75.0); RED BLOOD COUNT 3.71 X10^6/uL (4.7-6.0); RED CELL DISTRIBUTION WIDTH 15.1 % (11.6-16.5); WHITE BLOOD COUNT 7.1 X10^3/uL (3.6-10.0)
[2022-06-07 05:25] LABS: ALANINE AMINOTRANSFERASE 14 Units/L (12-78); ALBUMIN 2.4 g/dL (3.4-5.0); ALKALINE PHOSPHATASE 99 Units/L (46-116); ASPARTATE AMINO TRANSFERASE 18 Units/L (15-37); BLOOD UREA NITROGEN 19 mg/dL (7-18); CARBON DIOXIDE 31.2 mmol/L (21-32); CHLORIDE 104 mmol/L (98-107); COR CA(FOR HYPOALB) 10.3 mg/dL (8.5-10.1); COR NA(FOR HYPERGLY) 140 mmol/L (136-145); CREATININE 0.75 mg/dL (0.70-1.30); SODIUM 140 mmol/L (136-145); TOTAL PROTEIN 6.3 g/dL (6.4-8.2); eGFR NON BLACK RACES > 60 (>60)
[2022-06-07] MEDS: GLUCOPHAGE XR 24-HR PO SCH (09:05)
[2022-06-07] MEDS: LOVENOX INJ 40 MG SYR SC SCH (09:05)
[2022-06-07] MEDS: LOPRESSOR TAB 25 MG PO SCH ×2 (09:05→21:02)
[2022-06-07] MEDS: PEPCID TAB 20 MG PO SCH ×2 (09:05→21:02)
[2022-06-07] MEDS: VANCOMYCIN IV *PREMIX 750 mg/150 ML BAG 750 MG/150 ML PIGGYBACK IV SCH ×2 (09:05→21:48)
[2022-06-07] MEDS: ACTOS PO SCH (09:06)
[2022-06-07] MEDS: NS 1,000 ML IV 1,000 ML IV SCH (19:13)
--- NOTE | 2022-06-07 19:38 | PT/OTEVAL ---
PT/OT OBJECTIVES - HISTORY Prescription: OT consult Diagnosis: S/P transmetatarsal Amputation 2nd-5th toes Precautions: PWB with walker, fall risk, O2 use PMH: GERD,Arthritis, DM with neuropathy, dyslipedemia, HTN, CABG/Valve surgery Complexities/Comorbities: Complicated medical Hx, Complicated Home situation Prior Level of Function: Independent Other, comment: Per pt his granddaughter, son in law, great grand daughter lives with him Other: Lives in a single level mobile home with 5 steps to enter with handrail on one side.Patient reports being independent with his dressing, toileting and shower using shower chair but getting in/out the tub/shower and walking with rollator has started to get difficult, his grand daughter does the legal associate. perchart review, patient has a complicated family/home situtation History of Present Illness: Patient is a 76 yr old male, who was admitted to the hospital secondary to increase weakness, unsteady gait, and multiple wounds to bilateral foot, with gangrene, and cellulitis, pateint underwent a left transmetatarsal amputation on the 2nd-5th toes. Patient then transferred to swing bed program due to inability to care for self, monitor wound healing and further Skilled PT/OT services - COGNITION Mental Status: Alert, Oriented, Name, Date, Place, Purpose Communication Status: Verbal Ability to Follow Directions: 2 Step Affect: Calm - PAIN Generalized Pain Scale: No Pain Comments: No reports of pain at time of evaluation. - TRANSFERS Toileting: Moderate - ADL'S Upper Body ADL: Moderate Lower Body ADL: Moderate Toileting: Dependent Bathing: Dependent - BALANCE Static Sitting: Good Standing: Fair Balance Comment: Fair- Dynamic Sitting: Good Standing: Poor Balance Comment: Poor- - NEUROMOTOR/SENSATION Roberto. Lower Ext Proprioception: WFL Roberto. Upper Ext Sensation: WFL Coordination: WFL - ROM Bilateral Shoulder ROM: Impaired Comment: limited AROM due to "hurting " his shoulders after a fall episode at home - STRENGTH Bilateral UE Strength Number: 3 Other comment: B UE strength grossly graded 3+/5 Bilateral LE Strength Number: 3 Other comment: 3+/5 grossly graded to B hips, knees and R ankle- L ankle NT d/t recent sx - TREATMENT Date: 06/07/22 Time: 10:30 Treatment Type: Evaluation Treatment Provided: Other (ADL training) - TOTAL TREATMENT TIME Total Time: 75 - POST ASSESSMENT Post Assessment Comment: Patient is an active participant, he requires set up to be able to transition from supine to sit , sit to supine. once seated demonstrating good sitting balance. Chris presents with limited shoulder AROM pt reports due to his fall at home, but with PROM WFL, all other joints are within functional limits, noted there are arthritic changes on the right hand/digits with noted trigger finger on the 3rd right digit. Patient sit to stand transitions requires MOD A, with noted left feet to start sliding,needing sustained cues/support during standing when completing ADL tasks. Functional transfers requires MOD A assisting patient to comply with the PWB on the L LE. patient at this time requires MOD A to complete UB dressing taks, patient can initiate to thread feet onto LB garment but requires assist to complete LB dressing task. dependent with toileting at this time . Chris consent to the use of telehealth for therapy/OT eval was verbally reconfirmed, Real time audio and video via secure zoom application was utilized. The patient is located [facility] with YAEL assisting onsite and the therapist was located offsite - EXIT DISPOSITION Exit Position: BED Call light in reach: Yes PT/OT ASSESSMENT - OT Problem List: Decreased Mobility ADL's, Decreased Dressing, Decreased Bathing, Decreased Grooming, Decreased UE Strength ( ) Other, comment: decreased toileting - PT GOALS Short Term Goals Days: 10 Mobility: Pt will perform bed mobility tasks with supervision Transfers: Pt will perform functional transfers with supervision & maintain WB status Gait: Pt will ambulate 25ft with FWW with CGA & maintain PWB to LLE Balance: Pt will increase static standing balance to good- Penitentiary Goals Days: 20 Mobility: Pt will perform bed mobility tasks with mod I Transfers: Pt will perform functional transfers with mod I Gait: Pt will ambulate 150ft with FWW with mod I & maintain appropriate WB status Balance: Pt will increase dynamic standing balance to fair/fair+ ROM/Strength: Pt will increase BLE strength to 5/5 Others: Pt will ascend/descend 5 stairs with HR with supervision - OT GOALS Short Term Goals Days: 10 Mobility for ADL's: Patient will improve commode transfers to supervision level Dressing: Patient to improve UB dressing and LB dressing skills to supervision level Bathing: Patient will improve bathing skills to Part/MOD A Grooming: Patient will be set up with grooming tasks Upper Ext. Strength/Use: Patient will improve B UE strength to 4-/5 Other: Patient will improve toileting hygiene skills to supervision level Cancer Researcher Goals Days: 20 Mobility for ADL's: Patient will perform commode transfers at independent level Dressing: Patient will improve UB and LB dressing skills to Independent level Bathing: Patient will improve bathing skills to set up/clean up level Upper Ext. Strength/Use: Patient will improve B UE strength to 4+/5 Other: Patient will improve toileting hygiene skills to independent level - PATIENT GOALS Patient/Family Goals: would like to get back to where he is doing as much as he can for himself Rehabilitation Potential: Good rehab potential as patient is motivated Weakness and Barriers: None - PLAN Suggested Treatment Plan: Therapeutic Activity, Self Care Training, Neuro Re- education, Therapeutic Ex with HEP, Patient Education - FREQUENCY AND DURATION OT: 5x/week for 20 days Expected Continuation of Care at Discharge: Home (uncertain at this time due to complicated home situation)
[2022-06-07] MEDS ORDERED: PHARMACY COMMENT IV ONE (20:30)
[2022-06-07] MEDS: SNACK - Diabetic Appropriate PO SCH ×2 (20:59→21:00)
[2022-06-07] MEDS: CRESTOR TAB 10 MG PO SCH (21:02)
[2022-06-07] MEDS: NovoLIN R (or HumuLIN R) SUBCUT PRN (21:02)
[2022-06-08] MEDS: MERREM VIAL 500 MG in NS 100 ML IV 100 ML IV SCH ×3 (06:07→21:16)
[2022-06-08 09:01] LABS: CREATININE 0.96 mg/dL (0.70-1.30); VANCOMYCIN,TROUGH 19.3 ug/mL (15-20)
[2022-06-08] MEDS: PEPCID TAB 20 MG PO SCH ×2 (09:05→20:37)
[2022-06-08] MEDS: COZAAR PO SCH (09:05)
[2022-06-08] MEDS: ACTOS PO SCH (09:05)
[2022-06-08] MEDS: LOPRESSOR TAB 25 MG PO SCH ×2 (09:05→20:37)
[2022-06-08] MEDS: GLUCOPHAGE XR 24-HR PO SCH (10:03)
[2022-06-08] MEDS: LOVENOX INJ 40 MG SYR SC SCH (10:03)
[2022-06-08] MEDS: NovoLIN R (or HumuLIN R) SUBCUT PRN (13:56)
[2022-06-08] MEDS: NS 1,000 ML IV 1,000 ML IV SCH (20:36)
[2022-06-08] MEDS: SNACK - Diabetic Appropriate PO SCH ×2 (20:36)
[2022-06-08] MEDS: CRESTOR TAB 10 MG PO SCH (20:37)
[2022-06-09] MEDS: MERREM VIAL 500 MG in NS 100 ML IV 100 ML IV SCH (05:43)
[2022-06-09] MEDS: LOPRESSOR TAB 25 MG PO SCH ×2 (09:11→20:49)
[2022-06-09] MEDS: COZAAR PO SCH (09:11)
[2022-06-09] MEDS: GLUCOPHAGE XR 24-HR PO SCH ×2 (09:12→16:47)
[2022-06-09] MEDS: LOVENOX INJ 40 MG SYR SC SCH (09:13)
[2022-06-09] MEDS: ACTOS PO SCH (09:21)
[2022-06-09] MEDS: PEPCID TAB 20 MG PO SCH ×2 (09:24→20:49)
[2022-06-09] MEDS: NORVASC TAB 5 MG PO SCH (09:25)
[2022-06-09] MEDS: BUTT CREAM (COMPOUND) TOP PRN (19:45)
[2022-06-09] MEDS: CRESTOR TAB 10 MG PO SCH (20:49)
[2022-06-09] MEDS: NS 1,000 ML IV 1,000 ML IV SCH (20:49)
[2022-06-09] MEDS: SNACK - Diabetic Appropriate PO SCH ×2 (20:50)
[2022-06-09] MEDS: NovoLIN R (or HumuLIN R) SUBCUT PRN (21:34)
[2022-06-10 06:25] LABS: BASOPHILS # (AUTO) 0.1 X10^3/uL (0.0-0.1); EOSINOPHILS # (AUTO) 0.2 x10^3/uL (0.0-0.2); EOSINOPHILS % (AUTO) 2.8 % (0.9-2.9); HEMATOCRIT 32.3 % (42.0-54.0); HEMOGLOBIN 10.9 g/dL (13.5-18.0); LYMPHOCYTES # (AUTO) 2.2 X10^3/uL (1.3-2.9); LYMPHOCYTES % (AUTO) 33.3 % (21.0-51.0); MEAN CORPUSCULAR HEMOGLOBIN 29.9 pg (27.0-34.0); MEAN CORPUSCULAR HGB CONC 33.8 g/dL (33.0-35.0); MEAN CORPUSCULAR VOLUME 88.3 fL (80.0-100.0); MONOCYTES # (AUTO) 0.6 x10^3/uL (0.3-0.8); NEUTROPHILS # (AUTO) 3.6 x10^3/uL (2.2-4.8); NEUTROPHILS % (AUTO) 53.9 % (42.0-75.0); RED BLOOD COUNT 3.65 X10^6/uL (4.7-6.0); RED CELL DISTRIBUTION WIDTH 15.4 % (11.6-16.5); WHITE BLOOD COUNT 6.6 X10^3/uL (3.6-10.0)
[2022-06-10] MEDS: COZAAR PO SCH (08:23)
[2022-06-10] MEDS: GLUCOPHAGE XR 24-HR PO SCH (08:23)
[2022-06-10] MEDS: LOVENOX INJ 40 MG SYR SC SCH (08:24)
[2022-06-10] MEDS: LOPRESSOR TAB 25 MG PO SCH ×2 (08:24→20:55)
[2022-06-10] MEDS: NORVASC TAB 5 MG PO SCH (08:25)
[2022-06-10] MEDS: ACTOS PO SCH (08:25)
[2022-06-10] MEDS: PEPCID TAB 20 MG PO SCH ×2 (08:25→20:55)
[2022-06-10 08:34] LABS: ALANINE AMINOTRANSFERASE 21 Units/L (12-78); ALBUMIN 2.6 g/dL (3.4-5.0); ALKALINE PHOSPHATASE 74 Units/L (46-116); ASPARTATE AMINO TRANSFERASE 25 Units/L (15-37); BLOOD UREA NITROGEN 24 mg/dL (7-18); CALCIUM 8.8 mg/dL (8.5-10.1); CARBON DIOXIDE 31.3 mmol/L (21-32); CHLORIDE 105 mmol/L (98-107); COR CA(FOR HYPOALB) 9.9 mg/dL (8.5-10.1); CREATININE 0.77 mg/dL (0.70-1.30); SODIUM 140 mmol/L (136-145); TOTAL PROTEIN 6.2 g/dL (6.4-8.2); eGFR NON BLACK RACES > 60 (>60)
[2022-06-10] MEDS: NYSTATIN POWDER TOP SCH ×2 (17:08→20:59)
[2022-06-10] MEDS: NS 1,000 ML IV 1,000 ML IV SCH (20:00)
[2022-06-10] MEDS: CRESTOR TAB 10 MG PO SCH (20:55)
[2022-06-10] MEDS: SNACK - Diabetic Appropriate PO SCH ×2 (20:59)
[2022-06-10] MEDS: NovoLIN R (or HumuLIN R) SUBCUT PRN (21:50)
--- NOTE | 2022-06-11 06:22 | DR.PROGNOT ---
HOSPITAL PROGRESS NOTE Progress Note for Day of: Progress Note Date: 06/11/22 Chief Complaint Chief Complaint: dressing was changed .. skin edges are viable . no necrosis or active infection Past Medical Family Social History Past Med/Fam/Surg Hx: No changes since H&P Allergies: Allergies Penicillins Allergy (Mild, Verified 12/25/18 19:56) Sulfa (Sulfonamide Antibiotics) [SULFA] Allergy (Mild, Verified 12/25/18 19:56) Review Of Systems ROS: No change since H&P Vital Signs Vital Signs: Temperature 98.6 F Pulse Rate [Brachial] 68 Pulse Rate 71 Respiratory Rate 20 Blood Pressure [Right Arm] 128/58 Blood Pressure [Left Arm] 173/68 O2 Sat by Pulse Oximetry 87 Physical Exam Skin: Other (dressing was changed , no infection , slow healing of the wound but viable .. ) Speech Pattern: Clear and Appropriate Laboratory and Diagnostics Result Diagrams: 06/10/22 05:30 06/10/22 05:30 Labs: Laboratory WBC 6.6 X10^3/uL (3.6-10.0) 06/10/22 05:30 RBC 3.65 X10^6/uL (4.7-6.0) L 06/10/22 05:30 Hgb 10.9 g/dL (13.5-18.0) L 06/10/22 05:30 Hct 32.3 % (42.0-54.0) L 06/10/22 05:30 MCV 88.3 fL (80.0-100.0) 06/10/22 05:30 MCH 29.9 pg (27.0-34.0) 06/10/22 05:30 MCHC 33.8 g/dL (33.0-35.0) 06/10/22 05:30 RDW 15.4 % (11.6-16.5) 06/10/22 05:30 Plt Count 247 X10^3/uL (150.0-450.0) 06/10/22 05:30 MPV 7.0 fL (7.4-11.0) L 06/10/22 05:30 Neut % (Auto) 53.9 % (42.0-75.0) 06/10/22 05:30 Lymph % (Auto) 33.3 % (21.0-51.0) 06/10/22 05:30 [place] % (Auto) 9.0 % (0.0-13.0) 06/10/22 05:30 Eos % (Auto) 2.8 % (0.9-2.9) 06/10/22 05:30 Baso % (Auto) 1.0 % (0.2-1.0) 06/10/22 05:30 Neut # (Auto) 3.6 x10^3/uL (2.2-4.8) 06/10/22 05:30 Lymph # (Auto) 2.2 X10^3/uL (1.3-2.9) 06/10/22 05:30 [place] # (Auto) 0.6 x10^3/uL (0.3-0.8) 06/10/22 05:30 Eos # (Auto) 0.2 x10^3/uL (0.0-0.2) 06/10/22 05:30 Baso # (Auto) 0.1 X10^3/uL (0.0-0.1) 06/10/22 05:30 Absolute Nucleated RBC 0.0 /100WBC 06/10/22 05:30 Sodium 140 mmol/L (136-145) 06/10/22 05:30 Corrected Sodium TNP 06/10/22 05:30 Potassium 4.5 mmol/L (3.5-5.1) 06/10/22 05:30 Chloride 105 mmol/L (98-107) 06/10/22 05:30 Carbon Dioxide 31.3 mmol/L (21-32) 06/10/22 05:30 BUN 24 mg/dL (7-18) H 06/10/22 05:30 Creatinine 0.77 mg/dL (0.70-1.30) 06/10/22 05:30 Est GFR (MDRD) Af Amer > 60 (>60) 06/10/22 05:30 Est GFR (MDRD) Non-Af > 60 (>60) 06/10/22 05:30 Glucose 94 mg/dL (65-99) 06/10/22 05:30 POC Glucose (mg/dL) 109 mg/dL (65-99) H 06/11/22 06:09 Calcium 8.8 mg/dL (8.5-10.1) 06/10/22 05:30 Corrected Calcium 9.9 mg/dL (8.5-10.1) 06/10/22 05:30 Total Bilirubin 0.30 mg/dL (0.2-1.0) 06/10/22 05:30 AST 25 Units/L (15-37) 06/10/22 05:30 ALT 21 Units/L (12-78) 06/10/22 05:30 Alkaline Phosphatase 74 Units/L (46-116) 06/10/22 05:30 Total Protein 6.2 g/dL (6.4-8.2) L 06/10/22 05:30 Albumin 2.6 g/dL (3.4-5.0) L 06/10/22 05:30 Globulin 3.6 g/dL (2.5-4.5) 06/10/22 05:30 Albumin/Globulin Ratio 0.7 Ratio (1.1-2.1) L 06/10/22 05:30 Vancomycin Trough 19.3 ug/mL (15-20) 06/08/22 08:30 Assessment and Plan 1: s/p transmetatarsal amputation fo 2,3,4,5 th metatarsals . DM, PVD , neuropathy . same local care and PT , ABT .. to keep the sutures for three weeks at least .
[2022-06-11] MEDS: NORVASC TAB 5 MG PO SCH (09:11)
[2022-06-11] MEDS: ACTOS PO SCH (09:11)
[2022-06-11] MEDS: COZAAR PO SCH (09:11)
[2022-06-11] MEDS: PEPCID TAB 20 MG PO SCH ×2 (09:11→20:45)
[2022-06-11] MEDS: LOVENOX INJ 40 MG SYR SC SCH (09:12)
[2022-06-11] MEDS: GLUCOPHAGE XR 24-HR PO SCH (09:12)
[2022-06-11] MEDS: LOPRESSOR TAB 25 MG PO SCH ×2 (09:12→20:45)
[2022-06-11] MEDS: NYSTATIN POWDER TOP SCH ×2 (09:13→20:45)
[2022-06-11] MEDS: DIFLUCAN PO SCH (10:43)
[2022-06-11] MEDS: NS 1,000 ML IV 1,000 ML IV SCH (18:07)
[2022-06-11] MEDS: CRESTOR TAB 10 MG PO SCH (20:45)
[2022-06-11] MEDS: SNACK - Diabetic Appropriate PO SCH ×2 (20:46)
[2022-06-12] MEDS: NS 1,000 ML IV 1,000 ML IV SCH ×2 (05:34→21:16)
[2022-06-12 06:18] LABS: ALANINE AMINOTRANSFERASE 29 Units/L (12-78); ALBUMIN 2.8 g/dL (3.4-5.0); ALKALINE PHOSPHATASE 73 Units/L (46-116); ASPARTATE AMINO TRANSFERASE 29 Units/L (15-37); BLOOD UREA NITROGEN 25 mg/dL (7-18); CALCIUM 9.1 mg/dL (8.5-10.1); CARBON DIOXIDE 30.5 mmol/L (21-32); CHLORIDE 106 mmol/L (98-107); COR CA(FOR HYPOALB) 10.1 mg/dL (8.5-10.1); COR NA(FOR HYPERGLY) 140 mmol/L (136-145); CREATININE 0.74 mg/dL (0.70-1.30); SODIUM 140 mmol/L (136-145); TOTAL PROTEIN 6.6 g/dL (6.4-8.2); eGFR NON BLACK RACES > 60 (>60)
[2022-06-12 06:22] LABS: BASOPHILS # (AUTO) 0.1 X10^3/uL (0.0-0.1); EOSINOPHILS # (AUTO) 0.2 x10^3/uL (0.0-0.2); EOSINOPHILS % (AUTO) 2.9 % (0.9-2.9); HEMATOCRIT 32.7 % (42.0-54.0); LYMPHOCYTES # (AUTO) 2.1 X10^3/uL (1.3-2.9); LYMPHOCYTES % (AUTO) 34.4 % (21.0-51.0); MEAN CORPUSCULAR HEMOGLOBIN 29.7 pg (27.0-34.0); MEAN CORPUSCULAR HGB CONC 33.8 g/dL (33.0-35.0); MEAN CORPUSCULAR VOLUME 88.1 fL (80.0-100.0); MONOCYTES # (AUTO) 0.5 x10^3/uL (0.3-0.8); MONOCYTES % (AUTO) 8.4 % (0.0-13.0); NEUTROPHILS # (AUTO) 3.3 x10^3/uL (2.2-4.8); NEUTROPHILS % (AUTO) 53.3 % (42.0-75.0); RED BLOOD COUNT 3.71 X10^6/uL (4.7-6.0); RED CELL DISTRIBUTION WIDTH 15.8 % (11.6-16.5); WHITE BLOOD COUNT 6.2 X10^3/uL (3.6-10.0)
[2022-06-12] MEDS: NORVASC TAB 5 MG PO SCH (09:02)
[2022-06-12] MEDS: COZAAR PO SCH (09:03)
[2022-06-12] MEDS: ACTOS PO SCH (09:03)
[2022-06-12] MEDS: LOVENOX INJ 40 MG SYR SC SCH (09:03)
[2022-06-12] MEDS: LOPRESSOR TAB 25 MG PO SCH ×2 (09:04→21:15)
[2022-06-12] MEDS: GLUCOPHAGE XR 24-HR PO SCH (09:04)
[2022-06-12] MEDS: DIFLUCAN PO SCH (09:04)
[2022-06-12] MEDS: PEPCID TAB 20 MG PO SCH ×2 (09:04→21:17)
[2022-06-12] MEDS: NYSTATIN POWDER TOP SCH ×2 (09:05→21:18)
[2022-06-12] MEDS: SNACK - Diabetic Appropriate PO SCH ×2 (20:45)
[2022-06-12] MEDS: CRESTOR TAB 10 MG PO SCH (21:15)
[2022-06-13] MEDS: LOVENOX INJ 40 MG SYR SC SCH (08:28)
[2022-06-13] MEDS: PEPCID TAB 20 MG PO SCH ×2 (08:29→21:05)
[2022-06-13] MEDS: GLUCOPHAGE XR 24-HR PO SCH (08:29)
[2022-06-13] MEDS: LOPRESSOR TAB 25 MG PO SCH ×2 (08:29→21:05)
[2022-06-13] MEDS: COZAAR PO SCH (08:29)
[2022-06-13] MEDS: DIFLUCAN PO SCH (08:29)
[2022-06-13] MEDS: ACTOS PO SCH (08:29)
[2022-06-13] MEDS: NYSTATIN POWDER TOP SCH ×2 (08:30→21:06)
[2022-06-13] MEDS: NORVASC TAB 5 MG PO SCH (08:30)
[2022-06-13] MEDS: NovoLIN R (or HumuLIN R) SUBCUT PRN (16:43)
[2022-06-13] MEDS: SNACK - Diabetic Appropriate PO SCH ×2 (19:48)
[2022-06-13] MEDS: NS 1,000 ML IV 1,000 ML IV SCH (19:48)
[2022-06-13] MEDS: CRESTOR TAB 10 MG PO SCH (21:05)
[2022-06-14] MEDS: NS 1,000 ML IV 1,000 ML IV SCH ×2 (08:27→18:47)
[2022-06-14] MEDS: ACTOS PO SCH (08:28)
[2022-06-14] MEDS: COZAAR PO SCH (08:29)
[2022-06-14] MEDS: PEPCID TAB 20 MG PO SCH ×2 (08:29→20:43)
[2022-06-14] MEDS: NORVASC TAB 5 MG PO SCH (08:29)
[2022-06-14] MEDS: GLUCOPHAGE XR 24-HR PO SCH (08:29)
[2022-06-14] MEDS: DIFLUCAN PO SCH (08:29)
[2022-06-14] MEDS: LOPRESSOR TAB 25 MG PO SCH ×2 (08:29→20:43)
[2022-06-14] MEDS: NYSTATIN POWDER TOP SCH ×2 (08:30→20:44)
[2022-06-14] MEDS: LOVENOX INJ 40 MG SYR SC SCH (08:30)
[2022-06-14] MEDS: BACTROBAN TOPICAL OINT TOP SCH (10:06)
[2022-06-14] MEDS: NovoLIN R (or HumuLIN R) SUBCUT PRN (17:12)
[2022-06-14] MEDS: SNACK - Diabetic Appropriate PO SCH ×2 (20:43→20:44)
[2022-06-14] MEDS: CRESTOR TAB 10 MG PO SCH (20:43)
[2022-06-15] MEDS: COZAAR PO SCH (08:45)
[2022-06-15] MEDS: NORVASC TAB 5 MG PO SCH (08:45)
[2022-06-15] MEDS: GLUCOPHAGE XR 24-HR PO SCH (08:45)
[2022-06-15] MEDS: PEPCID TAB 20 MG PO SCH ×2 (08:45→20:52)
[2022-06-15] MEDS: ACTOS PO SCH (08:45)
[2022-06-15] MEDS: NYSTATIN POWDER TOP SCH ×2 (08:46→20:53)
[2022-06-15] MEDS: BACTROBAN TOPICAL OINT TOP SCH (08:46)
[2022-06-15] MEDS: LOVENOX INJ 40 MG SYR SC SCH (08:47)
[2022-06-15] MEDS: LOPRESSOR TAB 25 MG PO SCH ×2 (08:47→20:52)
--- NOTE | 2022-06-15 11:17 | PCM.PROG ---
Progress Note Progress Note for Day of Date of Exam: 06/15/22 Subjective Subjective: Pt is s/p transmetatarsal amputation of 2,3,4,5 metatarsals and is swing bed status. Pt is resting comfortably in bed this morning. No acute events overnight. He has no complaints. Instructions to continue with local wound care. Otherwise, continue with current treatment plan. Past Medical Family Social History Past Med/Fam/Surg Hx: No changes since H&P Allergies: Allergies Penicillins Allergy (Mild, Verified 12/25/18 19:56) Sulfa (Sulfonamide Antibiotics) [SULFA] Allergy (Mild, Verified 12/25/18 19:56) Review of Systems ROS: No change since H&P Vital Signs and I&O's Vital Signs: Temperature 97.8 F Pulse Rate [Brachial] 50 Pulse Rate 68 Respiratory Rate 15 Blood Pressure [Right Arm] 132/68 Blood Pressure [Left Arm] 173/68 O2 Sat by Pulse Oximetry 92 Intake and Output: Intake & Output 06/12/22 06/13/22 06/14/22 06/15/22 23:59 23:59 23:59 23:59 Intake Total 1843 / 1843 1550 / 1550 1065 / 1065 480 / 480 Balance 1843 / 1843 1550 / 1550 1065 / 1065 480 / 480 Physical Exam Skin: Other (dressing was changed , no infection , slow healing of the wound but viable .. ) Speech Pattern: Clear and Appropriate Laboratory and Diagnostics Result Diagrams: 06/12/22 05:26 06/12/22 05:26 Labs: Laboratory WBC 6.2 X10^3/uL (3.6-10.0) 06/12/22 05:26 RBC 3.71 X10^6/uL (4.7-6.0) L 06/12/22 05:26 Hgb 11.0 g/dL (13.5-18.0) L 06/12/22 05:26 Hct 32.7 % (42.0-54.0) L 06/12/22 05:26 MCV 88.1 fL (80.0-100.0) 06/12/22 05:26 MCH 29.7 pg (27.0-34.0) 06/12/22 05:26 MCHC 33.8 g/dL (33.0-35.0) 06/12/22 05:26 RDW 15.8 % (11.6-16.5) 06/12/22 05:26 Plt Count 246 X10^3/uL (150.0-450.0) 06/12/22 05:26 MPV 7.0 fL (7.4-11.0) L 06/12/22 05:26 Neut % (Auto) 53.3 % (42.0-75.0) 06/12/22 05:26 Lymph % (Auto) 34.4 % (21.0-51.0) 06/12/22 05:26 [place] % (Auto) 8.4 % (0.0-13.0) 06/12/22 05:26 Eos % (Auto) 2.9 % (0.9-2.9) 06/12/22 05:26 Baso % (Auto) 1.0 % (0.2-1.0) 06/12/22 05:26 Neut # (Auto) 3.3 x10^3/uL (2.2-4.8) 06/12/22 05:26 Lymph # (Auto) 2.1 X10^3/uL (1.3-2.9) 06/12/22 05:26 [place] # (Auto) 0.5 x10^3/uL (0.3-0.8) 06/12/22 05:26 Eos # (Auto) 0.2 x10^3/uL (0.0-0.2) 06/12/22 05:26 Baso # (Auto) 0.1 X10^3/uL (0.0-0.1) 06/12/22 05:26 Absolute Nucleated RBC 0.1 /100WBC 06/12/22 05:26 Sodium 140 mmol/L (136-145) 06/12/22 05:26 Corrected Sodium 140 mmol/L (136-145) 06/12/22 05:26 Potassium 4.6 mmol/L (3.5-5.1) 06/12/22 05:26 Chloride 106 mmol/L (98-107) 06/12/22 05:26 Carbon Dioxide 30.5 mmol/L (21-32) 06/12/22 05:26 BUN 25 mg/dL (7-18) H 06/12/22 05:26 Creatinine 0.74 mg/dL (0.70-1.30) 06/12/22 05:26 Est GFR (MDRD) Af Amer > 60 (>60) 06/12/22 05:26 Est GFR (MDRD) Non-Af > 60 (>60) 06/12/22 05:26 Glucose 114 mg/dL (65-99) H 06/12/22 05:26 POC Glucose (mg/dL) 97 mg/dL (65-99) 06/15/22 10:52 Calcium 9.1 mg/dL (8.5-10.1) 06/12/22 05:26 Corrected Calcium 10.1 mg/dL (8.5-10.1) 06/12/22 05:26 Total Bilirubin 0.30 mg/dL (0.2-1.0) 06/12/22 05:26 AST 29 Units/L (15-37) 06/12/22 05:26 ALT 29 Units/L (12-78) 06/12/22 05:26 Alkaline Phosphatase 73 Units/L (46-116) 06/12/22 05:26 Total Protein 6.6 g/dL (6.4-8.2) 06/12/22 05:26 Albumin 2.8 g/dL (3.4-5.0) L 06/12/22 05:26 Globulin 3.8 g/dL (2.5-4.5) 06/12/22 05:26 Albumin/Globulin Ratio 0.7 Ratio (1.1-2.1) L 06/12/22 05:26 Vancomycin Trough 19.3 ug/mL (15-20) 06/08/22 08:30 Plan (1) Status post amputation of foot through metatarsal bone: Status: Acute
[2022-06-15] MEDS: NS 1,000 ML IV 1,000 ML IV SCH (20:41)
[2022-06-15] MEDS: CRESTOR TAB 10 MG PO SCH (20:52)
[2022-06-15] MEDS: SNACK - Diabetic Appropriate PO SCH (20:52)
[2022-06-16] MEDS: BUTT CREAM (COMPOUND) TOP PRN (05:48)
[2022-06-16] MEDS: GLUCOPHAGE XR 24-HR PO SCH (08:59)
[2022-06-16] MEDS: BACTROBAN TOPICAL OINT TOP SCH ×2 (08:59→23:19)
[2022-06-16] MEDS: LOVENOX INJ 40 MG SYR SC SCH (08:59)
[2022-06-16] MEDS: COZAAR PO SCH (08:59)
[2022-06-16] MEDS: PEPCID TAB 20 MG PO SCH ×2 (08:59→20:40)
[2022-06-16] MEDS: ACTOS PO SCH (08:59)
[2022-06-16] MEDS: NORVASC TAB 5 MG PO SCH (08:59)
[2022-06-16] MEDS: NYSTATIN POWDER TOP SCH ×2 (09:00→20:40)
[2022-06-16] MEDS: LOPRESSOR TAB 25 MG PO SCH ×2 (09:01→20:39)
[2022-06-16] MEDS: NS 1,000 ML IV 1,000 ML IV SCH (20:00)
[2022-06-16] MEDS: SNACK - Diabetic Appropriate PO SCH (20:39)
[2022-06-16] MEDS: CRESTOR TAB 10 MG PO SCH (20:40)
[2022-06-17 05:49] LABS: BASOPHILS # (AUTO) 0.1 X10^3/uL (0.0-0.1); BASOPHILS % (AUTO) 1.4 % (0.2-1.0); EOSINOPHILS # (AUTO) 0.2 x10^3/uL (0.0-0.2); HEMATOCRIT 31.3 % (42.0-54.0); HEMOGLOBIN 10.5 g/dL (13.5-18.0); LYMPHOCYTES # (AUTO) 1.9 X10^3/uL (1.3-2.9); LYMPHOCYTES % (AUTO) 29.6 % (21.0-51.0); MEAN CORPUSCULAR HEMOGLOBIN 29.6 pg (27.0-34.0); MEAN CORPUSCULAR HGB CONC 33.5 g/dL (33.0-35.0); MEAN CORPUSCULAR VOLUME 88.5 fL (80.0-100.0); MEAN PLATELET VOLUME 7.6 fL (7.4-11.0); MONOCYTES # (AUTO) 0.5 x10^3/uL (0.3-0.8); MONOCYTES % (AUTO) 7.7 % (0.0-13.0); NEUTROPHILS # (AUTO) 3.7 x10^3/uL (2.2-4.8); NEUTROPHILS % (AUTO) 58.3 % (42.0-75.0); RED BLOOD COUNT 3.53 X10^6/uL (4.7-6.0); RED CELL DISTRIBUTION WIDTH 16.2 % (11.6-16.5); WHITE BLOOD COUNT 6.3 X10^3/uL (3.6-10.0)
[2022-06-17 06:05] LABS: ALANINE AMINOTRANSFERASE 24 Units/L (12-78); ALBUMIN 2.9 g/dL (3.4-5.0); ALKALINE PHOSPHATASE 75 Units/L (46-116); ASPARTATE AMINO TRANSFERASE 18 Units/L (15-37); BLOOD UREA NITROGEN 34 mg/dL (7-18); CALCIUM 8.6 mg/dL (8.5-10.1); CARBON DIOXIDE 26.7 mmol/L (21-32); CHLORIDE 106 mmol/L (98-107); COR CA(FOR HYPOALB) 9.5 mg/dL (8.5-10.1); CREATININE 0.89 mg/dL (0.70-1.30); SODIUM 137 mmol/L (136-145); TOTAL PROTEIN 6.2 g/dL (6.4-8.2); eGFR NON BLACK RACES > 60 (>60)
[2022-06-17] MEDS: PEPCID TAB 20 MG PO SCH ×2 (09:00→20:48)
[2022-06-17] MEDS: NYSTATIN POWDER TOP SCH ×2 (09:10→20:48)
[2022-06-17] MEDS: GLUCOPHAGE XR 24-HR PO SCH (09:11)
[2022-06-17] MEDS: LOPRESSOR TAB 25 MG PO SCH ×3 (09:11→20:47)
[2022-06-17] MEDS: NORVASC TAB 5 MG PO SCH (09:11)
[2022-06-17] MEDS: LOVENOX INJ 40 MG SYR SC SCH (09:12)
[2022-06-17] MEDS: COZAAR PO SCH (09:12)
[2022-06-17] MEDS: ACTOS PO SCH (09:14)
[2022-06-17] MEDS: BACTROBAN TOPICAL OINT TOP SCH (10:00)
[2022-06-17] MEDS: SNACK - Diabetic Appropriate PO SCH (20:46)
[2022-06-17] MEDS: NS 1,000 ML IV 1,000 ML IV SCH (20:46)
[2022-06-17] MEDS: CRESTOR TAB 10 MG PO SCH (20:47)
[2022-06-18] MEDS: GLUCOPHAGE XR 24-HR PO SCH (08:12)
[2022-06-18] MEDS: ACTOS PO SCH (08:12)
[2022-06-18] MEDS: LOPRESSOR TAB 25 MG PO SCH ×2 (08:13→20:28)
[2022-06-18] MEDS: PEPCID TAB 20 MG PO SCH ×2 (08:13→20:26)
[2022-06-18] MEDS: COZAAR PO SCH (08:13)
[2022-06-18] MEDS: LOVENOX INJ 40 MG SYR SC SCH (08:13)
[2022-06-18] MEDS: NORVASC TAB 5 MG PO SCH (08:13)
[2022-06-18] MEDS: NYSTATIN POWDER TOP SCH ×2 (08:15→20:27)
[2022-06-18] MEDS: BACTROBAN TOPICAL OINT TOP SCH (09:42)
[2022-06-18] MEDS: NovoLIN R (or HumuLIN R) SUBCUT PRN (17:07)
[2022-06-18] MEDS: SNACK - Diabetic Appropriate PO SCH (20:25)
[2022-06-18] MEDS: CRESTOR TAB 10 MG PO SCH (20:25)
[2022-06-18] MEDS: NS 1,000 ML IV 1,000 ML IV SCH (20:27)
[2022-06-19 06:23] LABS: BASOPHILS # (AUTO) 0.1 X10^3/uL (0.0-0.1); BASOPHILS % (AUTO) 1.4 % (0.2-1.0); EOSINOPHILS # (AUTO) 0.2 x10^3/uL (0.0-0.2); EOSINOPHILS % (AUTO) 3.2 % (0.9-2.9); HEMATOCRIT 33.4 % (42.0-54.0); HEMOGLOBIN 11.2 g/dL (13.5-18.0); LYMPHOCYTES # (AUTO) 1.8 X10^3/uL (1.3-2.9); LYMPHOCYTES % (AUTO) 35.7 % (21.0-51.0); MEAN CORPUSCULAR HEMOGLOBIN 29.7 pg (27.0-34.0); MEAN CORPUSCULAR HGB CONC 33.5 g/dL (33.0-35.0); MEAN CORPUSCULAR VOLUME 88.7 fL (80.0-100.0); MEAN PLATELET VOLUME 7.8 fL (7.4-11.0); MONOCYTES # (AUTO) 0.4 x10^3/uL (0.3-0.8); MONOCYTES % (AUTO) 7.6 % (0.0-13.0); NEUTROPHILS # (AUTO) 2.6 x10^3/uL (2.2-4.8); NEUTROPHILS % (AUTO) 52.1 % (42.0-75.0); RED BLOOD COUNT 3.77 X10^6/uL (4.7-6.0); RED CELL DISTRIBUTION WIDTH 15.8 % (11.6-16.5); WHITE BLOOD COUNT 5.1 X10^3/uL (3.6-10.0)
[2022-06-19 06:40] LABS: ALANINE AMINOTRANSFERASE 26 Units/L (12-78); ALBUMIN 3.1 g/dL (3.4-5.0); ALKALINE PHOSPHATASE 79 Units/L (46-116); ASPARTATE AMINO TRANSFERASE 21 Units/L (15-37); BLOOD UREA NITROGEN 30 mg/dL (7-18); CALCIUM 8.8 mg/dL (8.5-10.1); CARBON DIOXIDE 24.4 mmol/L (21-32); CHLORIDE 106 mmol/L (98-107); COR CA(FOR HYPOALB) 9.5 mg/dL (8.5-10.1); CREATININE 0.86 mg/dL (0.70-1.30); SODIUM 141 mmol/L (136-145); TOTAL PROTEIN 6.7 g/dL (6.4-8.2); eGFR NON BLACK RACES > 60 (>60)
[2022-06-19] MEDS: LOVENOX INJ 40 MG SYR SC SCH (08:42)
[2022-06-19] MEDS: NORVASC TAB 5 MG PO SCH (08:42)
[2022-06-19] MEDS: ACTOS PO SCH (08:42)
[2022-06-19] MEDS: LOPRESSOR TAB 25 MG PO SCH ×2 (08:43→21:36)
[2022-06-19] MEDS: COZAAR PO SCH (08:43)
[2022-06-19] MEDS: PEPCID TAB 20 MG PO SCH ×2 (08:44→21:34)
[2022-06-19] MEDS: GLUCOPHAGE XR 24-HR PO SCH (08:44)
[2022-06-19] MEDS: NYSTATIN POWDER TOP SCH ×2 (08:44→21:35)
[2022-06-19] MEDS: BACTROBAN TOPICAL OINT TOP SCH (08:44)
[2022-06-19] MEDS: SNACK - Diabetic Appropriate PO SCH (20:20)
[2022-06-19] MEDS: CRESTOR TAB 10 MG PO SCH (21:33)
[2022-06-19] MEDS: NS 1,000 ML IV 1,000 ML IV SCH (21:39)
[2022-06-20] MEDS: BUTT CREAM (COMPOUND) TOP PRN (01:10)
[2022-06-20] MEDS: LOVENOX INJ 40 MG SYR SC SCH (08:32)
[2022-06-20] MEDS: ACTOS PO SCH (08:33)
[2022-06-20] MEDS: GLUCOPHAGE XR 24-HR PO SCH (08:33)
[2022-06-20] MEDS: PEPCID TAB 20 MG PO SCH ×2 (08:33→21:06)
[2022-06-20] MEDS: LOPRESSOR TAB 25 MG PO SCH ×2 (08:33→21:05)
[2022-06-20] MEDS: NORVASC TAB 5 MG PO SCH (08:34)
[2022-06-20] MEDS: COZAAR PO SCH (08:34)
[2022-06-20] MEDS: NYSTATIN POWDER TOP SCH ×2 (08:34→21:05)
[2022-06-20] MEDS ORDERED: LASIX IVP ONE (10:06)
[2022-06-20] MEDS: BACTROBAN TOPICAL OINT TOP SCH (16:25)
[2022-06-20] MEDS ORDERED: HYDROGEN PEROXIDE 3% EXT PRN (16:29)
[2022-06-20] MEDS ORDERED: HYDROGEN PEROXIDE 3% ONE ×2 (16:34)
[2022-06-20] MEDS: SNACK - Diabetic Appropriate PO SCH (21:00)
[2022-06-20] MEDS: CRESTOR TAB 10 MG PO SCH (21:01)
[2022-06-21 05:58] LABS: BASOPHILS # (AUTO) 0.1 X10^3/uL (0.0-0.1); BASOPHILS % (AUTO) 1.3 % (0.2-1.0); EOSINOPHILS # (AUTO) 0.2 x10^3/uL (0.0-0.2); EOSINOPHILS % (AUTO) 3.2 % (0.9-2.9); HEMATOCRIT 32.6 % (42.0-54.0); LYMPHOCYTES # (AUTO) 1.5 X10^3/uL (1.3-2.9); LYMPHOCYTES % (AUTO) 31.8 % (21.0-51.0); MEAN CORPUSCULAR HEMOGLOBIN 29.6 pg (27.0-34.0); MEAN CORPUSCULAR HGB CONC 33.7 g/dL (33.0-35.0); MEAN CORPUSCULAR VOLUME 87.9 fL (80.0-100.0); MEAN PLATELET VOLUME 7.4 fL (7.4-11.0); MONOCYTES # (AUTO) 0.4 x10^3/uL (0.3-0.8); MONOCYTES % (AUTO) 7.8 % (0.0-13.0); NEUTROPHILS # (AUTO) 2.7 x10^3/uL (2.2-4.8); NEUTROPHILS % (AUTO) 55.9 % (42.0-75.0); RED CELL DISTRIBUTION WIDTH 15.7 % (11.6-16.5); WHITE BLOOD COUNT 4.8 X10^3/uL (3.6-10.0)
[2022-06-21 06:10] LABS: ALANINE AMINOTRANSFERASE 21 Units/L (12-78); ALBUMIN 3.1 g/dL (3.4-5.0); ALKALINE PHOSPHATASE 74 Units/L (46-116); ASPARTATE AMINO TRANSFERASE 17 Units/L (15-37); BLOOD UREA NITROGEN 30 mg/dL (7-18); CALCIUM 8.8 mg/dL (8.5-10.1); CHLORIDE 105 mmol/L (98-107); COR CA(FOR HYPOALB) 9.5 mg/dL (8.5-10.1); CREATININE 0.98 mg/dL (0.70-1.30); SODIUM 140 mmol/L (136-145); TOTAL PROTEIN 6.6 g/dL (6.4-8.2); eGFR NON BLACK RACES > 60 (>60)
[2022-06-21] MEDS: PEPCID TAB 20 MG PO SCH ×2 (09:37→20:54)
[2022-06-21] MEDS: ACTOS PO SCH (09:37)
[2022-06-21] MEDS: NORVASC TAB 5 MG PO SCH (09:37)
[2022-06-21] MEDS: COZAAR PO SCH (09:37)
[2022-06-21] MEDS: LOPRESSOR TAB 25 MG PO SCH ×2 (09:37→20:55)
[2022-06-21] MEDS: GLUCOPHAGE XR 24-HR PO SCH (09:37)
[2022-06-21] MEDS: BACTROBAN TOPICAL OINT TOP SCH (09:38)
[2022-06-21] MEDS: LOVENOX INJ 40 MG SYR SC SCH (09:38)
[2022-06-21] MEDS: NYSTATIN POWDER TOP SCH ×2 (09:39→20:55)
[2022-06-21] MEDS ORDERED: LASIX PO ONE (15:26)
[2022-06-21] MEDS ORDERED: LASIX IVP ONE (16:38)
[2022-06-21] MEDS ORDERED: LASIX IVP SCH (17:00)
[2022-06-21] MEDS ORDERED: MICRO K EXTEN CAP 10 MEQ PO ONE (20:08)
[2022-06-21] MEDS: SNACK - Diabetic Appropriate PO SCH (20:15)
[2022-06-21] MEDS: CRESTOR TAB 10 MG PO SCH (20:53)
[2022-06-21] MEDS: MICRO K EXTEN CAP 10 MEQ PO SCH (20:54)
[2022-06-21] MEDS: BUTT CREAM (COMPOUND) TOP PRN (21:00)
[2022-06-22] MEDS: BUTT CREAM (COMPOUND) TOP PRN (04:20)
[2022-06-22] MEDS ORDERED: LASIX IVP ONE (08:54)
[2022-06-22] MEDS: COZAAR PO SCH (09:19)
[2022-06-22] MEDS: MICRO K EXTEN CAP 10 MEQ PO SCH ×2 (09:19→20:40)
[2022-06-22] MEDS: GLUCOPHAGE XR 24-HR PO SCH (09:20)
[2022-06-22] MEDS: NORVASC TAB 5 MG PO SCH (09:22)
[2022-06-22] MEDS: NYSTATIN POWDER TOP SCH ×2 (09:24→20:42)
[2022-06-22] MEDS: PEPCID TAB 20 MG PO SCH ×2 (09:26→20:41)
[2022-06-22] MEDS ORDERED: COREG TAB 25 MG ONE ×2 (09:27→20:31)
[2022-06-22] MEDS ORDERED: INVOKANA PO ONE (09:28)
[2022-06-22] MEDS: COREG TAB 25 MG PO SCH ×2 (09:29→20:41)
[2022-06-22] MEDS: INVOKANA PO SCH (09:29)
[2022-06-22] MEDS: LOVENOX INJ 40 MG SYR SC SCH (09:31)
[2022-06-22] MEDS: BACTROBAN TOPICAL OINT TOP SCH (17:00)
[2022-06-22] MEDS: SNACK - Diabetic Appropriate PO SCH (19:47)
[2022-06-22] MEDS ORDERED: HYDROGEN PEROXIDE 3% ONE (20:31)
[2022-06-22] MEDS ORDERED: BACTROBAN TOPICAL OINT ONE (20:31)
[2022-06-22] MEDS ORDERED: MICRO K EXTEN CAP 10 MEQ PO ONE (20:31)
[2022-06-22] MEDS: CRESTOR TAB 10 MG PO SCH (20:41)
[2022-06-23] MEDS ORDERED: LASIX ONE (08:57)
[2022-06-23] MEDS ORDERED: COREG TAB 25 MG ONE ×2 (08:57→19:32)
[2022-06-23] MEDS ORDERED: INVOKANA PO ONE (08:57)
[2022-06-23] MEDS: INVOKANA PO SCH (09:36)
[2022-06-23] MEDS: MICRO K EXTEN CAP 10 MEQ PO SCH ×2 (09:37→20:38)
[2022-06-23] MEDS: LASIX PO SCH (09:37)
[2022-06-23] MEDS: GLUCOPHAGE XR 24-HR PO SCH (09:37)
[2022-06-23] MEDS: COREG TAB 25 MG PO SCH ×2 (09:38→20:38)
[2022-06-23] MEDS: NORVASC TAB 5 MG PO SCH (09:39)
[2022-06-23] MEDS: PEPCID TAB 20 MG PO SCH ×2 (09:39→20:38)
[2022-06-23] MEDS: LOVENOX INJ 40 MG SYR SC SCH (09:40)
[2022-06-23] MEDS: NYSTATIN POWDER TOP SCH ×2 (09:43→20:40)
[2022-06-23] MEDS: COZAAR PO SCH (09:44)
[2022-06-23] MEDS: BACTROBAN TOPICAL OINT TOP SCH (14:56)
[2022-06-23] MEDS: CRESTOR TAB 10 MG PO SCH (20:38)
[2022-06-23] MEDS: SNACK - Diabetic Appropriate PO SCH (20:39)
[2022-06-24 08:06] VITALS: BP 145/70
[2022-06-24] MEDS ORDERED: LASIX ONE (09:59)
[2022-06-24] MEDS ORDERED: INVOKANA PO ONE (09:59)
[2022-06-24] MEDS ORDERED: MICRO K EXTEN CAP 10 MEQ PO ONE (09:59)
[2022-06-24] MEDS: PEPCID TAB 20 MG PO SCH (10:34)
[2022-06-24] MEDS: MICRO K EXTEN CAP 10 MEQ PO SCH (10:35)
[2022-06-24] MEDS: COZAAR PO SCH (10:35)
[2022-06-24] MEDS: GLUCOPHAGE XR 24-HR PO SCH (10:36)
[2022-06-24] MEDS: LASIX PO SCH (10:41)
[2022-06-24] MEDS: INVOKANA PO SCH (10:42)
[2022-06-24] MEDS: NORVASC TAB 5 MG PO SCH (10:42)
[2022-06-24] MEDS: LOVENOX INJ 40 MG SYR SC SCH (10:53)
[2022-06-24] MEDS: BACTROBAN TOPICAL OINT TOP SCH (10:54)
[2022-06-24] MEDS ORDERED: COREG TAB 25 MG ONE (11:14)
[2022-06-24] MEDS: COREG TAB 25 MG PO SCH (11:44)
[2022-06-24] MEDS: NYSTATIN POWDER TOP SCH (11:45)
[2022-06-24] MEDS: BUTT CREAM (COMPOUND) TOP PRN (11:45)
== END 2022-06-24 14:15 | disposition home health service (06) | DRG 299 ==
LOC: MED/SURG 11:14
PROVIDERS: ADMIT Obstetrics & Gynecology Obstetrics; ATTEND Obstetrics & Gynecology Obstetrics
DX: Z59.819 Housing instability, housed unspecified; E11.65 Type 2 diabetes mellitus with hyperglycemia; I96 Gangrene, not elsewhere classified; Z89.422 Acquired absence of other left toe(s); Z51.89 Encounter for other specified aftercare; I50.33 Acute on chronic diastolic (congestive) heart failure; R09.02 Hypoxemia; R26.89 Other abnormalities of gait and mobility; B96.4 Proteus (mirabilis) (morganii) as the cause of diseases classified elsewhere; B95.2 Enterococcus as the cause of diseases classified elsewhere; M86.8X8 Other osteomyelitis, other site